=== PATIENT | female | born 1950 | race Hispanic/Latino ===

== ENCOUNTER 2021-07-24 07:09 | Inpatient (IN) | payer OTHER, MEDICARE ==
--- NOTE | 2021-07-23 15:25 | RAD REPORT ---
EXAM DESCRIPTION: RAD - Chest Pa And Lat (2 Views) - 07/23/2021 3:11 pm CLINICAL HISTORY: pre op Chest pain. COMPARISON: No comparisons FINDINGS: The lungs are clear. The heart is normal in size. No displaced fractures. IMPRESSION: No acute or concerning finding suspected.
[2021-07-23 16:01] LABS: Absolute Lymphocytes (CBC) 1.9 K/uL (0.7-4.9); Hematocrit 30.2 % (36.0-45.0); Lymphocytes % 14.9 % (15.3-44.8); MPV 8.6 fL (7.6-11.3); RBC Red Blood Cell Count 4.08 M/uL (3.86-4.86)
[2021-07-23 16:16] LABS: Potassium 3.8 mmol/L (3.5-5.1)
[2021-07-24] MEDS ORDERED: NA CHLORIDE 0.9% 1,000 ML ONE (07:38)
[2021-07-24] MEDS ORDERED: CELECOXIB 100 MG CAPSULE ONE (08:54)
[2021-07-24] MEDS ORDERED: ACETAMINOPHEN 500 MG TAB ONE (08:54)
[2021-07-24] MEDS ORDERED: MIDAZOLAM HCL 2 MG/2 ML INJ ONE (09:26)
[2021-07-24] MEDS ORDERED: dexAMETHasone 10 MG/ML VIAL ONE ×2 (09:27→09:30)
[2021-07-24] MEDS ORDERED: BUPIVACAINE 0.25% PF 10 ML VIAL ONE (09:28)
[2021-07-24] MEDS ORDERED: LIDOCAINE 1% MPF 5 ML VIAL ONE ×2 (09:30→10:08)
[2021-07-24] MEDS: CEFAZOLIN SODIUM 1 GM/VIAL ONE ×2 (09:52→10:07)
[2021-07-24] MEDS ORDERED: ONDANSETRON 4 MG/2 ML VIAL ONE (10:08)
[2021-07-24] MEDS ORDERED: propofoL 200 MG/20 ML VIAL IV ONE (10:08)
[2021-07-24] MEDS ORDERED: KETOROLAC 30 MG/ML INJ ONE (10:08)
[2021-07-24] MEDS ORDERED: EPHEDRINE SULF 50 MG/ML VIAL ONE (10:41)
--- NOTE | 2021-07-24 11:28 | P.BOP ---
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
[2021-07-24] MEDS ORDERED: MORPHINE 2 MG/ML SYR IV PRN (11:31)
[2021-07-24] MEDS ORDERED: SODIUM CHLORIDE 0.9% 10ML INJ IV PRN (11:31)
--- OUTSIDE RECORDS SUMMARY | 2021-07-24 12:54 | XMS REPORT | Continuity of Care Document ---
:1950 Author Organization [facility] t Address [address] [place] [address] Care Team Providers Name Role Phone Jacinto Torres Attending Clinician Unavailable Jacinto Torres Admitting Clinician Unavailable Payers Payer Name Policy Type Policy Number Effective Date Expiration Date S ource Problems This patient has no known problems. Allergies, Adverse Reactions, Alerts Allergy Allergy Status Severity Reaction(s) Onset Inactive Treating Comm ents Source Name Type Date Date Clinician No Known DA Active U [facility] Allergie 06-15 00:00: [address] Medications This patient has no known medications. Procedures This patient has no known procedures. Encounters Start End Encounter Admission Attending Care Care Encounter Source Date/Time Date/Time Type Type Clinicians Facility Department ID 2021-06-15 2021-06-15 Outpatient MINGO Sharma SURG [id number] [id number] [facility] 04:48:00 04:48:00 [facility] [id number] [facility] 2021-06-15 2021-06-15 Outpatient MINGO SharmaWU [id number] [facility] 04:48:00 04:48:00 [facility] 25 [facility] Results Test Description Test Time Test Comments Results Result Comments Source LIPID PROFILE (CORONARY RISK) 2021-06-15 07:24:00 Test Item Value Reference Range Interpretation Comme nts TRIGLYCERIDES (test code = TRIG) 125 MG/DL 150-199 L TRIGLYCERIDES REFERENCE RANGE:Normal: < 150 mg/dLBorderline High: 150-199 mg/dLHigh: 200- 499 mg/dLVery High: >=500 mg/ dL CHOLESTEROL (test code = CHOL) 225 MG/DL <200 HDL CHOLESTEROL (test code = 55 MG/DL 40-59 N HDL) LIPOPROTEIN LDL (test code = 121 MG/DL 0-99 H LDL) OPTIMAL........ .<100 mg/dLNEAR OPTIMAL/ABOVE OPTIMAL........ .100-129 mg/dL BORDERLIN E HIGH.........13 0-159 mg/dL HIGH.........16 0-189 mg/dL VERY H IGH.........>/= 190 mg/dL [id number] 07:24:00 Test Item Value Reference Range Interpretation Comments MAGNESIUM (test code = MAG) 2.6 MG/DL 1.6-2.3 H BASIC METABOLIC [id number] 07:24:00 Test Item Value Reference Range Interpretation Comments SODIUM (test code = 139 MMOL/L 137-145 N NA) POTASSIUM (test code = 4.8 MMOL/L 3.5-5.1 N K) CHLORIDE (test code = 107 MMOL/L 98-107 N CL) CARBON DIOXIDE (test 19 MMOL/L 22-30 L code = CO2) GLUCOSE (test code = 145 MG/DL 74-106 H GLU) BLOOD UREA NITROGEN 38 MG/DL 7-17 H (test code = BUN) GLOMERULAR FILTRATION > 60 Report ing units: RATE (test code = GFR) ml/mi n/1.73 m2 (Modified MDRD Formula)Referen ce Range: > or = 6 0 ml/min/1.73 m2 CREATININE (test code 0.80 MG/DL 0.52-1.04 N = CREAT) CALCIUM (test code = 9.4 MG/DL 8.4-10.2 N CA) PROTHROMBIN [id number] 07:08:00 Test Item Value Reference Range Interpretation Comments PROTHROMBIN TIME 13.0 SECONDS 9.4-12.7 H PATIENT (test code = PTP) INTERNATIONAL NORMAL 1.2 0.86-1.14 H The INR is to be RATIO (test code = used only for INR) monitoring oral anticoagulantth erap y. INDICATION I NR VALUE ---- ---- ---- -------1. Prophylaxis, de ep venous thrombos is, including hig h risk surgery. 2.0 - 3.0 2. Prophylaxis, de ep venous thrombos is, hip surgery, treatment for d eep venous thrombosis or pulmonary prevention of systemic emboli sm in patients wit h valvular heart disease, atrial fibrillation, tissue heart va lve, or acute myocar dial infarction. 2.0 - 3 .0 3. Mechanical prosthesis hear t valves, recurrent syste remington embolism. 3.0 - 4.5 PTT [id number] 07:08:00 Test Item Value Reference Range Interpretation Comments PTT ACTIVATED (test code = APTT) 33.5 SECONDS 26.2-35.4 N CBC W/AUTO [id number] 06:58:00 Test Item Value Reference Range Interpretation Comments WHITE BLOOD CELL (test code = 12.4 K/MM3 3.8-9.8 H WBC) RED BLOOD CELL (test code = 4.33 M/MM3 3.58-4.97 N RBC) HEMOGLOBIN (test code = HGB) 10.9 G/DL 11.2-14.9 L HEMATOCRIT (test code = HCT) 36.8 % 33.2-43.5 N MEAN CELL VOLUME (test code = 85 fL 80.7-99.1 N MCV) MEAN CELL HGB (test code = MCH) 25.2 pg 27.0-34.1 L MEAN CELL HGB CONCETRATION 29.6 % 32.2-35.7 L (test code = MCHC) RED CELL DISTRIBUTION WIDTH 12.4 % 12.1-15.2 N (test code = RDW) PLATELET COUNT (test code = 485 K/MM3 129-368 H PLT) MEAN PLATELET VOLUME (test code 10.2 fl 7.4-10.4 N = MPV) NEUTROPHIL % (test code = NT%) 69.6 % 43-75 N IMMATURE GRANULOCYTE % (test 0.6 % 0.0-2.0 N code = IG%) LYMPHOCYTE % (test code = LY%) 21.0 % 14-44 N MONOCYTE % (test code = MO%) 6.8 % 4-13 N EOSINOPHIL % (test code = EO%) 1.4 % 0-6 N BASOPHIL % (test code = BA%) 0.6 % 0-2 N NUCLEATED RBC % (test code = 0.0 % 0-1.0 N NRBC%) NEUTROPHIL # (test code = NT#) 8.62 K/mm3 2.0-7.6 H IMMATURE GRANULOCYTE # (test 0.08 x10 3/uL 0-0.03 H code = IG#) LYMPHOCYTE # (test code = LY#) 2.61 K/mm3 1.0-3.8 N MONOCYTE # (test code = MO#) 0.84 K/mm3 0.1-0.8 H EOSINOPHIL # (test code = EO#) 0.17 K/mm3 0.0-0.2 N BASOPHIL # (test code = BA#) 0.08 K/mm3 0.0-0.2 N NUCLEATED RBC # (test code = 0.00 K/mm3 0.0-0.1 N NRBC#) COVID 19 Asymptomatic IH [id number] 05:12:00 Test Item Value Reference Range Interpretation Comments COVID 19 NEGATIVE Negative "Negative resul ts from Asymptomatic IH AG patients with symptom (test code = onset beyondfiv e days, COVNONPUIAG) should be devorah facundo as presumptive, andconfirmation with a molecular assay , if necessary forpa tient management may be performed. Nega tive results do notr ule out COVID-19 and sh ould not be used as the sole basisfor treatm ent or patient managem ent decisions, includinginfect ion control decisio ns. Negative result s should beconsidered in the context of a pa tients recent exposure s,history, and the presenc e of clinical signs and symptomsconsist ent with COVID-19.This t est detects both vi able andnon-viable S ARS-CoV and SARS CoV-2. Test performance dep endson the amount of virus (antigen) in the sample."
[2021-07-24] MEDS: NA CHLORIDE 0.9% 1,000 ML IV SCH (14:45)
[2021-07-24 15:02] VITALS: BMI 15.4
[2021-07-24] MEDS ORDERED: GLUCAGON 1 MG/VIAL IM PRN (17:10)
[2021-07-24] MEDS ORDERED: D10W 250 ML BAG IV PRN (17:30)
[2021-07-24] MEDS: INSULIN -REGULAR HUMAN 50 UNIT/0.5 ML ML SQ SCH ×2 (18:01→21:25)
[2021-07-24] MEDS: HYDROCODONE/APAP 5/325 MG TAB PO PRN ×2 (18:04→23:16)
[2021-07-24] MEDS ORDERED: HYDRALAZINE HCL 20 MG/ML VIAL IV PRN (22:04)
--- NOTE | 2021-07-25 02:06 | OP ---
Date of Procedure: 07/24/2021 Surgeon: Mumtaz Bonilla MD Dredgemaster: Kenya Maurice. Preoperative Diagnosis: Right foot gangrene. Postoperative Diagnosis: Right foot gangrene. Procedure: Right below-knee amputation. Estimated Blood Loss: Less than 50 cc. Specimen: Right foot. Anesthesia: Spinal. Complications: None. Drains: KATHY #10. Indications: This is the case of a 70-year-old patient with right foot gangrene. The patient and th e family discussing advance options of amputation and a selective right below-knee amputation. The b enefits, alternatives, and risks of that procedure were fully explained, which include, but not limit ed to, infection, bleeding, damage to adjacent structures, anesthesia complication, failure of flap, need for further amputation, TN, and even . She also understands this may not relieve any sympt oms. She might need more than one surgical intervention. She understood, signed a consent. Description Of Procedure: The patient was brought to the operating room and placed in supine positio n. Anesthesia was done without complication. A time-out was called. Right foot was prepped and divya ped in a sterile fashion. At that moment, I proceeded then to outline the anterior and posterior ski n incisions. The anterior incision was made about 12 cm below the tibial tuberosity and extended med ially and lateral towards the edges of the gastrocnemius muscle. This skin incision was extended dis tally for about 12 cm to create the posterior flap. The skin and subcutaneous tissue were previously incised with a sharp knife. Saphenous veins were ligated. The fascia and the muscle were then divi ded with electrocautery with the Bovie cauterizer at the same level of the anterior skin incision. T he muscles in the anterior and lateral compartments were carefully exposed and tibial vessels were ca refully isolated and ligated. The tibial periosteum was incised circumferentially with the Bovie cau terizer. The tibial periosteum was carefully stripped about 2 cm. The tibia was transected with a G igli saw approximately 2 cm proximal to the skin with an anterior bevel. The fibula was then exposed and dissected circumferentially and transected with a bone cutter about 2 cm proximal to the tibial division. The amputation was then completed with the help of Bovie cauterizer transecting the soleus muscle obliquely and the gastrocnemius muscle. Sharp bony edges were file. The fascia of the anter ior and posterior muscle flaps were carefully approximated with interrupted #1 Vicryl and then the beckett bcutaneous tissue with 3-0 chromic and the skin with janis. Before that, we put a KATHY drain to be i n the middle of the muscle compartments and secured in place with 3-0 nylon. The patient tolerated t he procedure well. The area was wrapped with sterile dressings and the patient sent to Recovery in s table condition. I have to point out that incision was to do a nerve block previously, wh ich I believe will help a lot with the postoperative pain. The patient will be admitted to the floor for observation. We already dropped a rehab consult to help us evaluate the patient to see the post op care. She may need either at home rehab or transfer to a rehab center. We also asked for the monse mock, Dr. Silva, to help us with the medical management of this patient. JESSE/THELMA Voice ID: [id number] Report ID: [id number]
[2021-07-25] MEDS: NA CHLORIDE 0.9% 1,000 ML IV SCH ×3 (04:40→21:20)
[2021-07-25 05:43] LABS: Absolute Lymphocytes (CBC) 1.1 K/uL (0.7-4.9); Hematocrit 24.3 % (36.0-45.0); MPV 8.2 fL (7.6-11.3); RBC Red Blood Cell Count 3.33 M/uL (3.86-4.86)
[2021-07-25 05:59] LABS: Magnesium 1.9 mg/dL (1.8-2.4)
[2021-07-25] MEDS: INSULIN -REGULAR HUMAN 50 UNIT/0.5 ML ML SQ SCH ×4 (08:39→21:22)
[2021-07-25] MEDS: ATORVASTATIN 20 MG TAB PO SCH (08:39)
[2021-07-25] MEDS: lisinopriL 5 MG TAB PO SCH (08:39)
[2021-07-25] MEDS: ASPIRIN 81 MG CHEWABLE TABLET PO SCH (08:39)
[2021-07-25] MEDS: ENOXAPARIN 40 MG/0.4 ML SQ SCH (08:39)
[2021-07-25] MEDS ORDERED: PANTOPRAZOLE 40 MG INJ IVP SCH (09:00)
--- NOTE | 2021-07-25 16:35 | P.CNS ---
Date of Consult: 07/24/21 Reason for Consult: Medical management Requesting Physician: Mumtaz Bonilla Chief Complaint: s/p right BKA History of Present Illness: Patient is a 80s and diabetic neuropathy presented with diabetic foot ulcer about a month ago. She required amputation of her little toe but the infection spread patient is up requiring a below-knee amputation. Allergies No Known Allergies Allergy (Verified 07/23/21 14:46) Home Medications: Insulin Detemir [Levemir] 12 units SQ BID 02/07/15 Aspirin [Dionisio Chewable] 81 mg PO DAILY 07/23/21 Atorvastatin Calcium [Lipitor] 20 mg PO DAILY 07/23/21 Bimatoprost [Lumigan Opthalmic Drops] 1 drop LEFT EYE BEDTIME 07/23/21 Lisinopril [Zestril] 5 mg PO DAILY 07/23/21 Rivaroxaban [Xarelto] 2.5 mg PO BID 07/23/21 - Past Medical/Surgical History Diabetic: No -: HTN -: DM -: Right Corena Transplant Review of Systems 10-point ROS is otherwise unremarkable Physical Examination Temp Pulse Resp BP Pulse Ox 96.6 F L 84 12 111/61 100 07/25/21 16:00 07/25/21 16:00 07/25/21 16:00 07/25/21 16:00 07/25/21 16:00 General: Alert, In no apparent distress HEENT: Atraumatic, PERRLA, Mucous membr. moist/pink, EOMI, Sclerae nonicteric Neck: Supple, 2+ carotid pulse no bruit, No LAD, Without JVD or thyroid abnormality Respiratory: Clear to auscultation bilaterally, Normal air movement Cardiovascular: Regular rate/rhythm, Normal S1 S2 Gastrointestinal: Normal bowel sounds, No tenderness Musculoskeletal: No tenderness Integumentary: No rashes Neurological: Normal gait, Normal speech, Normal tone, Normal affect Lymphatics: No axilla or inguinal lymphadenopathy Laboratory Data (last 24 hrs) 07/25/21 05:05: Sodium 139, Potassium 5.0, BUN 26 H, Creatinine 0.77, Glucose 241 H, Phosphorus 3.0, Magnesium 1.9 07/25/21 05:05: WBC 15.7 H D, Hgb 8.0 L, Hct 24.3 L D, Plt Count 401 - Problems (1) History of right below knee amputation Current Visit: Yes Status: Acute (2) DM2 (diabetes mellitus, type 2) Current Visit: Yes Status: Acute Conclusions/ Impression: PLAN: 1. Continue with IV antibiotic 2. Continue with local wound care 3. Wound care consultation/surgical consultation 4. Gentle IV hydration 5. Monitor CBC 6. Strict blood sugar monitoring 7. Pain control 8. GI and DVT prophylaxis
[2021-07-25] MEDS: HYDROCODONE/APAP 5/325 MG TAB PO PRN ×2 (17:43→21:58)
[2021-07-25] MEDS ORDERED: BIMATOPROST OPHTH DROPS/2.5 ML BTL OPTH SCH (21:00)
[2021-07-26] MEDS: NA CHLORIDE 0.9% 1,000 ML IV SCH ×2 (00:35→14:03)
[2021-07-26] MEDS: PANTOPRAZOLE 40MG TABLET PO SCH (05:50)
[2021-07-26] MEDS: INSULIN -REGULAR HUMAN 50 UNIT/0.5 ML ML SQ SCH ×4 (08:23→20:56)
[2021-07-26] MEDS: lisinopriL 5 MG TAB PO SCH (08:24)
[2021-07-26] MEDS: ENOXAPARIN 40 MG/0.4 ML SQ SCH (08:24)
[2021-07-26] MEDS: ATORVASTATIN 20 MG TAB PO SCH (08:24)
[2021-07-26] MEDS: ASPIRIN 81 MG CHEWABLE TABLET PO SCH (08:24)
--- NOTE | 2021-07-26 08:43 | P.PN ---
Subjective Date of Service: 07/25/21 Chief Complaint: s/p right BKA Subjective: Tolerating diet, Improving Review of Systems General: Unremarkable Respiratory: Unremarkable Gastrointestinal: Unremarkable Physical Examination - Vital Signs Temperature: 97.5 F Blood Pressure: 130/66 Pulse: 81 Respirations: 12 Pulse Ox (%): 99 - Physical Exam General: Alert, In no apparent distress, Oriented x3, Cooperative HEENT: PERRLA, EOMI Neck: Supple Gastrointestinal: Soft and benign Musculoskeletal: Other (Intact surgical sites) Integumentary: Other Neurological: Normal speech Assessment And Plan - Plan OOB, IS [facility] Discharge Plan: Transfer (Rehab)
[2021-07-26] MEDS: HYDROCODONE/APAP 5/325 MG TAB PO PRN ×2 (09:24→19:42)
--- NOTE | 2021-07-26 18:42 | PN ---
Date of Progress Note: 07/26/2021 Diagnosis: Gangrene, status post below-knee amputation. Subjective: Patient doing well. No complaint. Tolerating diet. She is cooperating with the rehab department. Objective: Chest: Clear. Abdomen: Soft and depressible. Extremities: Intact surgical sites. Laboratory Data: Blood work reviewed. Plan: Encouraged ambulation, incentive spirometry. She has been making a lot of progress with rehab and to the point that she will be most likely accepted on the rehab either Thursday or Thursday if clinically she continues in this way. We appreciate the medical doctors to helping us with the bloo d pressure and diabetes. HM/MODL Voice ID: [id number] Report ID: [id number]
[2021-07-26] MEDS: LUMIGAN OPTH SCH (19:43)
[2021-07-27] MEDS: NA CHLORIDE 0.9% 1,000 ML IV SCH (05:39)
[2021-07-27] MEDS: PANTOPRAZOLE 40MG TABLET PO SCH (05:40)
[2021-07-27] MEDS: INSULIN -REGULAR HUMAN 50 UNIT/0.5 ML ML SQ SCH ×4 (07:30→20:32)
[2021-07-27] MEDS: ASPIRIN 81 MG CHEWABLE TABLET PO SCH (08:48)
[2021-07-27] MEDS: lisinopriL 5 MG TAB PO SCH (08:48)
[2021-07-27] MEDS: ATORVASTATIN 20 MG TAB PO SCH (08:48)
[2021-07-27] MEDS: ENOXAPARIN 40 MG/0.4 ML SQ SCH (08:49)
--- NOTE | 2021-07-27 14:09 | PN ---
Date of Progress Note: 07/27/2021 Diagnosis: Below-knee amputation. Subjective: The patient is doing better. No shortness of breath. No chest pain. Tolerating diet. Good spirits. Objective: Chest: Clear. Abdomen: Soft and depressible. Extremities: Good capillary refill. The stump was checked today. The flaps were intact. KATHY drain was removed. Plan: We are waiting for a rehab for the transfer. The patient is happy about that plan. We are aw aiting just for the insurance and paperwork to be finished. From the surgical standpoint, she is silke ar to be in that area. Once again advised the importance of diabetes control. HM/MODL Voice ID: [id number] Report ID: [id number]
[2021-07-27] MEDS ORDERED: ACETAMINOPHEN 325 MG TABLET PO PRN (17:38)
[2021-07-27] MEDS: LUMIGAN OPTH SCH (20:31)
[2021-07-28] MEDS: PANTOPRAZOLE 40MG TABLET PO SCH (05:54)
[2021-07-28] MEDS: INSULIN -REGULAR HUMAN 50 UNIT/0.5 ML ML SQ SCH ×3 (07:30→17:27)
[2021-07-28] MEDS: ASPIRIN 81 MG CHEWABLE TABLET PO SCH (08:36)
[2021-07-28] MEDS: lisinopriL 5 MG TAB PO SCH (08:36)
[2021-07-28] MEDS: ENOXAPARIN 40 MG/0.4 ML SQ SCH (08:36)
[2021-07-28] MEDS: ATORVASTATIN 20 MG TAB PO SCH (08:36)
[2021-07-28 16:54] VITALS: BP 135/60; TEMP 98.2
[2021-07-28 20:24] VITALS: O2SAT 99
== END 2021-07-28 20:16 | DRG 240 ==
LOC: OR 07:09 → 2ND 11:34
PROVIDERS: ADMIT Surgery; ATTEND Surgery
PROC: 0Y6H0Z3 Detachment at Right Lower Leg, Low, Open Approach (ICD-10-PCS; principal; 2021-07-24 09:45)
DX: E11.52 Type 2 diabetes mellitus with diabetic peripheral angiopathy with gangrene (principal); I96 Gangrene, not elsewhere classified; I10 Essential (primary) hypertension; Z79.4 Long term (current) use of insulin; Z94.7 Corneal transplant status; Z20.822 Contact with and (suspected) exposure to COVID-19
CPT/HCPCS: 36415; 71046; 80048; 82947; 83735; 84100; 85025; 88307; 88311; 94010; 97110; 97116; 97161; 97530; C9113; J0360; J0690; J1100; J1650; J1815; J2250; J2405; J2704; J7030; U0003

== ENCOUNTER 2021-07-26 14:08 | Inpatient (IN) | payer OTHER, MEDICARE ==
--- NOTE | 2021-07-28 09:37 | R.PREADM ---
PRE-ADMISSION SCREENING FORM SCREENING DATE AND TIME 07/28/2021 09:00 (CDT) ANTICIPATED REHAB ADMISSION DATE 07/28/[address] [facility] REFERRAL DATE AND TIME 07/25/2021 14:49 (CDT) REFERRAL ROOM# [id number] ACUTE ADMIT DATE 07/24/2021 Previous Rehabilitation(s): No. ACUTE INTERACTIVE DESIGNER/DC CAM MAKER Aleyda ATTENDING PHYSICIAN REFERRING PHYSICIAN MUMTAZ PHAM MD REHAB FACILITY [facility] CLINICAL LIAISON Sotero James PHYSICIAN REVIEWER Dr. Satnam Barton M.D. MR# [id number] NAME MUNA ROSSI ADDRESS [address] [place] [address] DR KEILA FELIX PHONE [place] [address] DATE OF 1950 AGE 70 SSN# [id number] GENDER female MARITAL STATUS RACE unknown race ADMIT FROM 02 - [facility] LIVING SETTING 01 - Home (private home/apt. board/care, assisted living, residential, transitional living) HOME TYPE AND DETAILS Type of home: single family house # of levels in the residence: 1 # of steps within the residence: 0 # of steps to enter the residence: 0 PRE-HOSPITAL LIVING WITH Family/Relatives FAMILY SUPPORT Yes PRIMARY FAMILY CONTACT NAME ANSHU ROSSI PRIMARY FAMILY CONTACT PHONE PRIMARY FAMILY CONTACT RELATIONSHIP Son PHONE PRIMARY FAMILY CONTACT ON ADM.? no IS PRIMARY FAMILY CONTACT AUTH. REP.? no 1ST EMERGENCY CONTACT ANSHU ROSSI 1ST CONTACT PHONE 1ST CONTACT RELATIONSHIP Son PHONE 1ST CONTACT ON ADM. no IS 1ST CONTACT AUTH. REP.? no PHONE 2ND CONTACT ON ADM.? no PATIENT EMPLOYMENT STATUS Retired (for age) PATIENT EMPLOYER No Employer PAYOR INFORMATION: 1ST PAYOR NAME Medicare 1ST PAYOR PHONE 1ST PAYOR INJURY/ILLNESS DUE TO ACCIDENT? No ANOTHER GREEN PARTY RESPONSIBLE? No PRIMARY REHAB/ACUTE DIAGNOSIS: Right Transtibial Amputation ONSET DATE 07/24/2021 REHAB IMPAIRMENT CATEGORY (ELLIOTT): 10 Amputation, lower extremity (Amp/LE) MEETS 60% rule AFFECTED EXTREMITIES: RLE PRIMARY DIAGNOSIS-RELATED SURGERIES: Elective Amputation of Limb(Unilateral Lower Limb Below the Knee (BK)) - performed by Mumtaz Pham on 07/24/2021 INTERVENTIONS: - Type 2 Diabetes Assess for signs of hyperglycemia. Weight daily. Assess LE for temperature, pulses, color, and sensation. Promote proper diet Monitor blood glucose and effectiveness of medications/Insulin Monitor pt BP - Hypertension Promote regular physical activity Implement healthy diet Monitor patient B/P and treat with prescribed medications Provide comfort measures - Hyperlipidemia Monitor LDL level and treat with prescribed medications Implement healthy diet Monitor and control blood pressure Promote regular physical activity - Pain Anticipate the need for pain medication for optimal pain managment Monitor and treat with prescribed pain medications Educate pt on relaxation techniques and deep breathing Monitor for headaches - BKA Encourage patient to perform prescribes exercises. Provide wound care on a routine basis Assist with specified ROM exercises for both the affected and unaffected limbs Assist with ambulation and transfers Maintain patency and routinely empty drainage device and monitor wound dressings Administer antibiotics as indicated Monitor pt v/s and for s/s of infection Perform periodic neurovascular assessments Monitor pt labs RISK FOR COMPLICATIONS: - Skin Breakdown Encourage ambulation as tolerated Repositioning q 2 hours Use of pillows or foam wedges while in bed - DVT Active and Passive ROM exercises Assist patient with frequent position changes Elevate BLE - Seizure Identify risk factors Provide safety measures Administer prescribed medications and supplemental O2 - Pain Educate patient on relaxation and deep breathing techniques Assist patient with frequent position changes at least every 2 hours Anticipate the need for pain medication for optimal pain managment Administer prescribed pain medication as needed - Stroke Monitor and maintain patient pain level Monitor patient blood pressure - Falls Maintain call light within patient reach for easy access to nursing assistance Provide assistance getting out of bed and with ambulation Provide assistive devices SUMMARY OF ACUTE HOSPITALIZATION: Pt. is a 70 yo female of unknown race. Pre-morbidly, Pt. was independent/mod-I in Locomotion, Safety Awareness, Social Cognition, and Balanc e; and she had good Transfers Control, Sphincter Control, Communication, Self-Care, and Endurance. Currently, she has deficits of Locomotion, Safety Awareness, Social Cognition, Transfers Control, Bal ance, Sphincter Control, Self-Care, Communication, and Endurance. Pt. is now referred to [facility] for acute in-patient rehabilitation in order to maximize patient's functional independence in activities of daily living, strength, ROM, and mobi lity. Patient has realistic goal of being discharged at assistance level 7-Ind to reside at Home with Fami ly/Relatives. 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 She elected for surgery, and on 07/24/[address] [facility] for Amputation of Limb(Unilateral Lower Limb Below the Knee (BK)) by MUMTAZ PHAM MD. CONSULT: Consult Certified Prosthetic for prosthesis construction PAST MEDICAL HISTORY HTN IDDM CHOLESTEROL RIGHT EYE BLIND MUSCLE WEAKNESS MEDICATION ALLERGIES: No Known Drug Allergies (NKDA) ENVIRONMENTAL ALLERGIES: - Substance Allergies None Known - Other Allergies None Known CODE STATUS: Full code WEIGHT/HEIGHT/BMI: WEIGHT 87 lbs HEIGHT 5' 3" BMI 15.4 DIET: - Diet Type Regular - Diet - Solid Texture Regular - Diet - Liquid Texture Regular - Tube Feed N/A SKIN DIAGRAM: on Right knee; extent - small; stage - NS(Not Stageable). Treatment - . REVIEW OF SYSTEMS: - Gen Alert and awake Lying in bed No apparent distress Oriented to: person, time, and place - Vital Signs Temperature: 97.6 F SBP/DBP: 105/54 Pulse: 87 Resp: 14 Vital signs stable, afebrile - CVS RRR VITAL SIGNS Temperature: 97.6 F SBP/DBP: 105/54 Pulse: 87 Resp: 14 Vital signs stable, afebrile MEDICATIONS/TREATMENT: Other- See attached MAR (Medication Administration Record). CURRENT SPHINCTER CONTROL: Pre-hospital bladder status: unspecified # of bladder accidents in the last 7 days prior to screenin Pre-hospital bowel status: unspecified # of bowel accidents in the last 7 days prior to screenin Last Bowel Movement Date: 07/27/2021 CURRENT LOCOMOTION STATUS: distance walked 30X 2 GATE TRAINING DETAILED CURRENT FUNCTIONAL STATUS: - Bladder accident frequency: 7-Ind - No accidents in the past 7 days - Bowel accident frequency: 7-Ind - No accidents in the past 7 days - Walking score based on distance walked: 0(N/A) - Wheelchair score based on distance traveled: 0(N/A) QI SCORES: - Self-Care A. Eating 03-Partial/moderate assistance B. Oral hygiene 03-Partial/moderate assistance C. Toileting hygiene 03-Partial/moderate assistance E. Shower/bathe self 02-Substantial/maximal assistance F. Upper body dressing 03-Partial/moderate assistance G. Lower body dressing 02-Substantial/maximal assistance H. Putting on/taking off footwear 88-Not attempted due to medical condition or safety concerns - Mobility A. Roll left and right 03-Partial/moderate assistance B. Sit to lying 03-Partial/moderate assistance C. Lying to sitting on side of bed 03-Partial/moderate assistance D. Sit to stand 03-Partial/moderate assistance E. Chair/kxc-ux-[id number] transfer 03-Partial/moderate assistance F. Toilet transfer 03-Partial/moderate assistance G. Car transfer 88-Not attempted due to medical condition or safety concerns I. Walk 10 feet 03-Partial/moderate assistance J. Walk 50 feet with two turns 88-Not attempted due to medical condition or safety concerns K. Walk 150 feet 88-Not attempted due to medical condition or safety concerns L. Walking 10 feet on uneven surfaces 88-Not attempted due to medical condition or safety concerns M. 1 step (curb) 88-Not attempted due to medical condition or safety concerns N. 4 steps 88-Not attempted due to medical condition or safety concerns O. 12 steps 88-Not attempted due to medical condition or safety concerns P. Picking up object 88-Not attempted due to medical condition or safety concerns R. Wheel 50 feet with two turns 88-Not attempted due to medical condition or safety concerns S. Wheel 150 feet 88-Not attempted due to medical condition or safety concerns - Bladder and Bowel Bladder continence Bowel continence - Endurance Fair - Balance Poor - Safety Awareness Fair CURRENT FUNC. DEFICITS: Self-Care, Mobility, Endurance, Balance, and Safety Awareness CURRENT / PREVIOUS ASSISTIVE DEVICES: Rolling Walker HISTORY OF FALLS. HAS THE PATIENT HAD TWO OR MORE FALLS IN THE PAST YEAR OR ANY FALL WITH INJURY IN T HE PAST YEAR?: No PRIOR SURGERY. DID THE PATIENT HAVE MAJOR SURGERY DURING THE 100 DAYS PRIOR TO ADMISSION?: No THERAPY NOTES FROM ACUTE CARE: Attached. SPECIAL NEEDS: - Safety Concerns Skin breakdown precautions needed due to skin breakdown risk PATIENT NEEDS ACTIVE AND ONGOING THERAPEUTIC INTERVENTION OF MULTIPLE THERAPY DISCIPLINES, INCLUDING: - Orthotics/Prosthetics Prosthetic Evaluation. - Dietary and Nutrition Adequate Nutrition. Nutritional Education. Nutritional Supplements. Evaluate and Treat. - Occupational Therapy Cognitive Retraining. Patient needs Occupational Therapy for a daily minimum of 1.5 hours at least 5 out of 7 days, to improve Activities of Daily Living, including: Eating, Grooming, Bathing, Dressing, Toileting, Toilet Transfers, Community Reintegration, Higher functional activities, Adaptive Equipme nt, Splinting, Household Tasks, and Other activities as determined. Visual Perceptual Training. Evalu ate and Treat. Adaptive Equipment. ADL Training. Patient/Family Education. Transfer Training. - Speech Therapy Cognitive Training. Expressive Language Skills. Memory Strategies. Patient needs Speech Therapy for a daily minimum of 1.5 hours at least 5 out of 7 days, to improve: Swallowing, Cognition, Language Ski lls, and Compensatory Strategies. Receptive Language Skills. Speech Intelligibility Training. Evaluat e and Treat. - Physical Therapy Patient needs Physical Therapy for a daily minimum of 1.5 hours at least 5 out of 7 days, to improve: Mobility, Strengthening, Transfers, Stretching, ROM, Endurance, Ability to manage stairs, Gait, and Balance. Balance Training. Evaluate and Treat. Gait Training. LE ROM. Medical Equipment Assessment an d Evaluation. Patient/Family Education. Safety Awareness. Transfer Training. PATIENT NEEDS CLOSE MEDICAL SUPERVISION BY A REHABILITATION PHYSICIAN FOR: Coordination of Treatment Team Post-Op Complications Wound Care PATIENT REQUIRES 24X7 REHAB NURSING FOR MEDICAL AND FUNCTIONAL MGT. OF THE FOLLOWING DEFICITS: Disease Management Medication Management Patient requires 24x7 Rehabilitation Nursing for: Pain Issues, Identifying and preventing risk factor s, Monitoring and reporting current medical conditions, Assisting with ambulation and transfer, Tyshawn ting with all ADL-s, Teaching patients about disease process and medications, Family teaching, Provid ing safe environment, Bowel and Bladder Issues, Skin Integrity, and Medication Management Patient/Family Education Providing Safe Environment Skin Integrity PATIENT REQUIRES INTENSIVE, COORDINATED INTERDISCIPLINARY APPROACH TO REHAB: Arranging Home Equipment/Services Discharge Planning Family Intervention/Training Patient needs Dietary and Nutrition Services for: Adequate Nutrition, Nutritional Supplements, and Nu tritional Education Patient needs Mold Technician and/or Case Management for: Discharge Planning, Arranging Home Equipmen t or Services, and Family Interventions Mold Technician/Case Management PATIENT REHAB POTENTIAL: Lon ROSSI is able and expected to receive 3 hours of individualized therapy daily on at least 5 of e very 7 days Lon CRUZs prognosis for significant practical improvement within a reasonable period of time appea rs Good Expected level of measurable improvement will be of a practical value to Lon ROSSI's functional capa city or adaptations to impairments Has a viable Discharge Plan Medically appropriate; condition is sufficiently stable to participate in intensive rehab program DISCHARGE PLAN: - Estimated Length of Stay (days) 11. - Consensus on plan Discharge plan has been discussed with primary caregiver. Patient/Family is in agreement with the yadiel n. Primary caregiver is in agreement with the plan. - Patient/Family Goals Return home independently. - Planned Living Setting Upon Discharge Home, to live with Family/Relatives. Transitional Living. RECOMMENDED CARE LEVEL: IRF RECOMMENDATION DETAILS: Recommended Admission to Comprehensive Rehabilitation Program to Increase Functional [place] SCREENER'S COMPLETENESS CONFIRMATION: - Screening Confirmation The patient data collection on this preadmission screening form is finished PHYSICIANS REVIEW AND ADMISSION DETERMINATION Admit - Based on my review of the Pre-Admission Screening results, in my medical judgment and experie nce, I concur with the findings and recommend admission to [facility], as this patient requires an IRF level of care. SIGNATURE PANEL: Shredder Tender Peat - [electronically] signed by Sotero James on 07/26/2021 at 13:59 (CDT) Shredder Tender Peat - [electronically] signed by Saad Castillo PT on 07/28/2021 at 09:09 (CDT) Physician Reviewer - [electronically] signed by Dr. Satnam Barton M.D. on 07/28/2021 at 09:36 (CDT )
--- OUTSIDE RECORDS SUMMARY | 2021-07-28 20:15 | XMS REPORT | Continuity of Care Document ---
:1950 Author Organization [facility] t Address [address] [place] [address] Care Team Providers Name Role Phone Jacinto Torres Attending Clinician Unavailable Jacinto Torres Admitting Clinician Unavailable Payers Payer Name Policy Type Policy Number Effective Date Expiration Date S ource Problems This patient has no known problems. Allergies, Adverse Reactions, Alerts Allergy Allergy Status Severity Reaction(s) Onset Inactive Treating Comm ents Source Name Type Date Date Clinician No Known DA Active [facility] Allergie 06-15 00:00: [address] Medications This patient has no known medications. Procedures This patient has no known procedures. Encounters Start End Encounter Admission Attending Care Care Encounter Source Date/Time Date/Time Type Type Clinicians Facility Department ID 2021-06-15 2021-06-15 Outpatient MINGO Sharma SURG [id number] 10-12 [facility] 04:48:00 04:48:00 [facility] [id number] [facility] 2021-06-15 2021-06-15 Outpatient MINGO SharmaWU [id number] [facility] 04:48:00 04:48:00 [facility] 25 [facility] Results Test Description Test Time Test Comments [...] 0-189 mg/dL VERY H IGH.........>/= 190 mg/dL [id number] 07:24:00 Test Item Value Reference Range Interpretation Comments MAGNESIUM (test code = MAG) 2.6 MG/DL 1.6-2.3 H BASIC METABOLIC [id number] 07:24:00 Test Item Value Reference Range Interpretation [...] = 9.4 MG/DL 8.4-10.2 N CA) PROTHROMBIN [id number] 07:08:00 Test Item Value Reference Range Interpretation [...] syste remington embolism. 3.0 - 4.5 PTT [id number] 07:08:00 Test Item Value Reference Range Interpretation Comments PTT ACTIVATED (test code = APTT) 33.5 SECONDS 26.2-35.4 N CBC W/AUTO [id number] 06:58:00 Test Item Value Reference Range Interpretation [...] 0.0-0.1 N NRBC#) COVID 19 Asymptomatic IH [id number] 05:12:00 Test Item Value Reference Range Interpretation [...]
[2021-07-28 20:26] VITALS: BMI 15.4
[2021-07-28] MEDS ORDERED: GLUCAGON 1 MG/VIAL IM PRN (20:32)
[2021-07-28] MEDS ORDERED: D50W 25 GM/50 ML SYRINGE IV PRN (20:32)
[2021-07-28] MEDS ORDERED: HYDROCODONE/APAP 5/325 MG TAB PO PRN (20:36)
[2021-07-28] MEDS ORDERED: ACETAMINOPHEN 325 MG TABLET PO PRN (20:36)
[2021-07-28] MEDS ORDERED: D10W 125 ML IV PRN (20:48)
[2021-07-28] MEDS ORDERED: BIMATOPROST EYE OPTH SCH (21:00)
[2021-07-28] MEDS ORDERED: BIMATOPROST OPHTH DROPS/2.5 ML BTL OPTH SCH (21:00)
[2021-07-28] MEDS: INSULIN -REGULAR HUMAN 50 UNIT/0.5 ML ML SQ SCH (21:38)
[2021-07-29 00:33] LABS: Urine Appearance Clear (Clear); Urine Bilirubin Negative (Negative); Urine Blood Negative (Negative); Urine Color Yellow (Yellow); Urine Glucose 2+ (Negative); Urine Protein Trace (Negative); Urine Urobilinogen 0.2 mg/dL (0.2-1.0); Urine pH 5.5 (5.0-7.0)
[2021-07-29 00:35] LABS: Urine Microscopic Reflex ORDER UMIC
[2021-07-29 00:43] LABS: Urine Bacteria NONE SEEN /HPF (<20); Urine RBC <5 /HPF (NONE SEEN)
[2021-07-29 04:22] LABS: Absolute Lymphocytes (CBC) 2.2 K/uL (0.7-4.9); Hematocrit 22.8 % (36.0-45.0); Lymphocytes % 24.7 % (15.3-44.8); MCV 72.9 fL (80-100); MPV 8.2 fL (7.6-11.3); RBC Red Blood Cell Count 3.13 M/uL (3.86-4.86)
[2021-07-29 04:42] LABS: Magnesium 1.6 mg/dL (1.8-2.4); Potassium 3.9 mmol/L (3.5-5.1); Prealbumin 11.5 mg/dL (20-40)
[2021-07-29 05:35] LABS: Blood Morphology Comment NOTED (NOT SEEN); Platelet Estimate INCR
[2021-07-29] MEDS: PANTOPRAZOLE 40MG TABLET PO SCH (07:30)
[2021-07-29] MEDS: ENOXAPARIN 30 MG/0.3 ML SQ SCH (07:30)
[2021-07-29] MEDS: INSULIN -REGULAR HUMAN 50 UNIT/0.5 ML ML SQ SCH ×4 (07:30→19:45)
[2021-07-29] MEDS: ASPIRIN 81 MG CHEWABLE TABLET PO SCH (07:31)
[2021-07-29] MEDS: lisinopriL 5 MG TAB PO SCH (07:32)
[2021-07-29] MEDS ORDERED: ATORVASTATIN 20 MG TAB PO SCH (08:00)
[2021-07-29] MEDS ORDERED: MAGNESIUM OXIDE 400 MG TAB PO ONE (10:21)
[2021-07-29] MEDS ORDERED: MELATONIN 3 MG TABLET PO PRN (10:36)
[2021-07-29] MEDS ORDERED: DOCUSATE NA/SENNA CONC 1 TAB PO PRN (10:37)
--- NOTE | 2021-07-29 17:57 | R.HP ---
HISTORY AND PHYSICAL FACILITY: [facility] ENCOUNTER DATE AND TIME: 07/29/2021 10:42 (CDT) MR#: [id number] NAME MUNA ROSSI ADDRESS: [facility] [place]: [place] [address] PHONE: DATE OF : 1950 AGE: 70 SSN# [id number] GENDER: Female DEXTERITY Unknown dexterity MARITAL STATUS RACE Unknown race PRE-HOSPITAL LIVING SETTING 01 - Home (private home/apt. board/care, assisted living, fdc, transitional living) PRE-HOSPITAL LIVING WITH Family/Relatives ENCOUNTER PHYSICIAN: Dr. Satnam Barton M.D. 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 is a 70 yo female of unknown race. Pre-morbidly, Pt. was independent/mod-I in Locomotion, Safety Awareness, Social Cognition, and Balanc e; and she had good Transfers Control, Sphincter Control, Communication, Self-Care, and Endurance. Currently, she has deficits of Locomotion, Safety Awareness, Social Cognition, Transfers Control, Bal ance, Sphincter Control, Self-Care, Communication, and Endurance. Pt. is now referred to [facility] for acute in-patient rehabilitation in order to maximize patient's functional independence in activities of daily living, strength, ROM, and mobi lity. Patient has realistic goal of being discharged at assistance level 7-Ind to reside at Home with Fami ly/Relatives. 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 She elected for surgery, and on 07/24/2021 was admitted to [facility] for Amputation of Limb(Unilateral Lower Limb Below the Knee (BK)) by MUMTAZ PHAM MD. MEDICATION ALLERGIES: No Known Drug Allergies (NKDA) ENVIRONMENTAL ALLERGIES: - Substance Allergies None Known - Other Allergies None Known PAST MEDICAL HISTORY: HTN IDDM CHOLESTEROL RIGHT EYE BLIND MUSCLE WEAKNESS SOCIAL HISTORY: - Home Living Family/Relatives REVIEW OF SYSTEMS: - Gen No Chills Fatigue No Fever - Eyes No Double Vision No itchiness - ENMT No Difficulty Swallowing - CVS No Chest Discomfort No Chest Pain Fatigue No Weight Gain - Resp No Cough No Shortness of Breath - GI Continent No Abdominal Pain No Constipation No Diarrhea - Continent No Kidney Pain No Painful Urination No Urinary Urgency - MSK Joint Pain Muscle Cramps Stiffness - Skin No Itching No Rash No Suspicious Lesions - Neuro Coordination Difficulty No Difficulty with Concentration No Memory Loss No Seizures Weakness - Psych No Anxiety No Depression No HIV Exposure No Persistent Infections No Seasonal Allergies - Endo No Cold/Heat Intolerance No Excessive Hunger No Excessive Thirst No Excessive Urination PHYSICAL EXAM - Gen Alert and awake Lying in bed No apparent distress Oriented to: person, time, and place - Skin Right BKA bandage in place with good hemostasis. Normacephalic - Eyes No abnormalities - ENMT No abnormalities - Neck No abnormalities - CVS RRR - Chest No abnormalities - Abd Soft - GI + bowel sounds Deferred - No abnormalities - Ext Right BKA stump with good hemostasis. - MSK No focal deficits, mild diffuse weakness - Neuro No focal deficits - Psych No abnormalities VITAL SIGNS Temperature: 97.8 F SBP/DBP: 147/83 Pulse: 80 Resp: 15 NURSING: - Shower allowing shower - Skin care per protocol PRECAUTIONS: - Weight Bearing Precaution NWB right LE ACTIVITIES OOB only with supervision QI SCORES: - Self-Care A. Eating 03-Partial/moderate assistance B. Oral hygiene 03-Partial/moderate assistance C. Toileting hygiene 03-Partial/moderate assistance E. Shower/bathe self 02-Substantial/maximal assistance F. Upper body dressing 03-Partial/moderate assistance G. Lower body dressing 02-Substantial/maximal assistance H. Putting on/taking off footwear 88-Not attempted due to medical condition or safety concerns - Mobility A. Roll left and right 03-Partial/moderate assistance B. Sit to lying 03-Partial/moderate assistance C. Lying to sitting on side of bed 03-Partial/moderate assistance D. Sit to stand 03-Partial/moderate assistance E. Chair/nmz-ef-sjtfi transfer 03-Partial/moderate assistance F. Toilet transfer 03-Partial/moderate assistance G. Car transfer 88-Not attempted due to medical condition or safety concerns I. Walk 10 feet 03-Partial/moderate assistance J. Walk 50 feet with two turns 88-Not attempted due to medical condition or safety concerns K. Walk 150 feet 88-Not attempted due to medical condition or safety concerns L. Walking 10 feet on uneven surfaces 88-Not attempted due to medical condition or safety concerns M. 1 step (curb) 88-Not attempted due to medical condition or safety concerns N. 4 steps 88-Not attempted due to medical condition or safety concerns O. 12 steps 88-Not attempted due to medical condition or safety concerns P. Picking up object 88-Not attempted due to medical condition or safety concerns R. Wheel 50 feet with two turns 88-Not attempted due to medical condition or safety concerns S. Wheel 150 feet 88-Not attempted due to medical condition or safety concerns - Bladder and Bowel Bladder continence Bowel continence - Endurance Fair - Balance Poor - Safety Awareness Fair CURRENT FUNC. DEFICITS: Self-Care, Mobility, Endurance, Balance, and Safety Awareness MEDICATIONS: - Other See attached MAR (Medication Administration Record) ASSESSMENT: Pt. is a 70 yo female of unknown race.Pre-morbidly, Pt. was independent/mod-I in Locomotion, Safety A wareness, Social Cognition, and Balance; and she had good Transfers Control, Sphincter Control, Commu nication, Self-Care, and Endurance.Currently, she has deficits of Locomotion, Safety Awareness, Socia l Cognition, Transfers Control, Balance, Sphincter Control, Self-Care, Communication, and Endurance.Judy bloom. is now referred to [facility] for acute in-patient rehabilitation in order to maximize patient's functional independence in activities of daily living, strength, ROM, and mobil ity.- Rehab Goal Patient has realistic goal of being discharged at assistance level 7-Ind to reside at Home with Fami ly/Relatives. - Physical Therapy Gait dysfunction - to improve, our physical therapists will perform initial evaluation of pt's status upon admission and devise an individualized program for Gait Training, and Wheel Chair mobility Inability to transfer - to improve, our physical therapists will perform initial evaluation of pt's s tatus upon admission and devise an individualized program for Bed mobility Need for home safety evaluation - to improve, our physical therapists will perform initial evaluation of pt's status upon admission and devise an individualized program for Home Evaluation Need in caregiver upon discharge - to improve, our physical therapists will perform initial evaluatio n of pt's status upon admission and devise an individualized program for Caregiver Training New precaution - to improve, our physical therapists will perform initial evaluation of pt's status u ashley admission and devise an individualized program for Patient precaution education Poor balance - to improve, our physical therapists will perform initial evaluation of pt's status upo n admission and devise an individualized program for Balance Training Poor endurance - to improve, our physical therapists will perform initial evaluation of pt's status u ashley admission and devise an individualized program for Endurance Training Weakness - to improve, our physical therapists will perform initial evaluation of pt's status upon ad mission and devise an individualized program for Aquatic Therapy, Neuromuscular Reeducation, and Stre ngthening Achieving independence - to improve, our physical therapists will perform initial evaluation of pt's status upon admission and devise an individualized program for Community Reintegration Activities - Occupational Therapy ADL deficits - to improve, our occupation therapists will perform initial evaluation of pt's status u ashley admission and devise an individualized program for Bathing, Bed mobility, Community Reintegration , Cooking, Dressing, Eating, Fine Motor Skills, Grooming, Homemaking, Kitchen Mobility, Laundry, Birdie ent Education, Safety Awareness, Splinting - Positioning, Transfers(Toilet, Tub, Shower), and Wheel C hair Management Cognitive deficits - to improve, our occupation therapists will perform initial evaluation of pt's st atus upon admission and devise an individualized program for Cognition - orientation Need for respiratory care faculty - to improve, our occupation therapists will perform initial evaluation of pt's s tatus upon admission and devise an individualized program for Caregiver Training Weakness - to improve, our occupation therapists will perform initial evaluation of pt's status upon admission and devise an individualized program for Aquatic Therapy, Balance, Endurance, UE ROM, and U E strengthening MEDICAL PLAN: - Diet Type Regular - Diet - Liquid Texture Regular - Tube Feed N/A - Weight Bearing Precaution NWB right LE - Skin care per protocol - Other See attached MAR (Medication Administration Record) - N/A Perform Consult Certified Prosthetic for prosthesis construction - Diet - Solid Texture Regular - Shower shower DISCHARGE PLAN: - Estimated Length of Stay (days) 11. - Consensus on plan Discharge plan has been discussed with primary caregiver. Patient/Family is in agreement with the yadiel n. Primary caregiver is in agreement with the plan. - Patient/Family Goals Return home independently. - Planned Living Setting Upon Discharge Home, to live with Family/Relatives. Transitional Living. SIGNATURE PANEL: (CDT)
--- NOTE | 2021-07-29 17:59 | PAPE ---
POST ADMISSION PHYSICIAN EVALUATION PATIENT: [facility] MR# [id number] REFERRING DOCTOR VILMA PHAM MD EVALUATION DATE AND TIME 07/29/2021 10:43 (CDT) NAME MUNA ROSSI DATE OF 1950 AGE 70 PHONE N# [id number] GENDER female EVALUATING PHYSICIAN Dr. Satnam Barton M.D. ADMISSION DIAGNOSIS: Right Transtibial Amputation ONSET DATE 07/24/2021 POST-ADMISSION FUNCTIONAL/MEDICAL STATUS: - Bladder Same accident frequency: 7-Ind - No accidents in the past 7 days - Bowel Same accident frequency: 7-Ind - No accidents in the past 7 days - Walking Same score based on distance walked: 0(N/A) - Wheelchair Same score based on distance traveled: 0(N/A) STATUS CHANGE EVALUATION: No change in Functional or Medical Status is identified compared with Pre-Admission screening. PATIENT NEEDS CLOSE MEDICAL SUPERVISION BY A REHABILITATION PHYSICIAN FOR: Coordination of Treatment Team Post-Op Complications Wound Care PATIENT REQUIRES 24X7 REHAB NURSING FOR MEDICAL AND FUNCTIONAL MGT. OF THE FOLLOWING DEFICITS: Disease Management Medication Management Patient requires 24x7 Rehabilitation Nursing for: Pain Issues, Identifying and preventing risk factor s, Monitoring and reporting current medical conditions, Assisting with ambulation and transfer, Tyshawn ting with all ADL-s, Teaching patients about disease process and medications, Family teaching, Provid ing safe environment, Bowel and Bladder Issues, Skin Integrity, and Medication Management Patient/Family Education Providing Safe Environment Skin Integrity PATIENT REQUIRES INTENSIVE, COORDINATED INTERDISCIPLINARY APPROACH TO REHAB: Arranging Home Equipment/Services Discharge Planning Family Intervention/Training Patient needs Dietary and Nutrition Services for: Adequate Nutrition, Nutritional Supplements, and Nu tritional Education Patient needs Drapery Installer and/or Case Management for: Discharge Planning, Arranging Home Equipmen t or Services, and Family Interventions Drapery Installer/Case Management LIST OF IDENTIFIED AND POTENTIAL PROBLEMS: Alteration in leisure activities Bladder, Incontinence Bowel, Incontinence Infection, Actual or Potential Mobility Impaired Pain, Alteration in Comfort Self Care Deficit Skin Integrity, Actual or Potential Urinary Tract Infection (UTI), Actual or Potential RISK FOR COMPLICATIONS - Skin Breakdown Encourage ambulation as tolerated. Repositioning q 2 hours. Use of pillows or foam wedges while in be d. - DVT Active and Passive ROM exercises. Assist patient with frequent position changes. Elevate BLE. - Seizure Identify risk factors. Provide safety measures. Administer prescribed medications and supplemental O2 . - Pain Educate patient on relaxation and deep breathing techniques. Assist patient with frequent position ch anges at least every 2 hours. Anticipate the need for pain medication for optimal pain managment. Adm inister prescribed pain medication as needed. - Stroke Monitor and maintain patient pain level. Monitor patient blood pressure. - Falls Maintain call light within patient reach for easy access to nursing assistance. Provide assistance ge tting out of bed and with ambulation. Provide assistive devices. INTERVENTIONS - Type 2 Diabetes Assess for signs of hyperglycemia. Weight daily. Assess LE for temperature, pulses, color, and sensat ion. Promote proper diet. Monitor blood glucose and effectiveness of medications/Insulin. Monitor pt BP. - Hypertension Promote regular physical activity. Implement healthy diet. Monitor patient B/P and treat with prescri bed medications. Provide comfort measures. - Hyperlipidemia Monitor LDL level and treat with prescribed medications. Implement healthy diet. Monitor and control blood pressure. Promote regular physical activity. - Pain Anticipate the need for pain medication for optimal pain managment. Monitor and treat with prescribed pain medications. Educate pt on relaxation techniques and deep breathing. Monitor for headaches. - BKA Encourage patient to perform prescribes exercises. Provide wound care on a routine basis. Assist with specified ROM exercises for both the affected and unaffected limbs. Assist with ambulation and trans fers. Maintain patency and routinely empty drainage device and monitor wound dressings. Administer an tibiotics as indicated. Monitor pt v/s and for s/s of infection. Perform periodic neurovascular asses sments. Monitor pt labs. PATIENT COULD BE AT RISK FOR COMPLICATIONS FROM ADVERSE MEDICAL CONDITIONS DUE TO HIS/HER COMORBIDITI ES AND THE RIGORS OF THE INTENSIVE REHABILLITATION PROGRAM. METHODS OR INTERVENTIONS TO AVOID COMPLIC ATIONS INCLUDE: - Bleeding Assess lab values and manage abnormalities. Nursing to teach precautions for anti-coagulation therapy . Wound to be assessed every shift. - Infection Clinical staff to assess and manage the signs and symptoms of infection including fever, redness, war mth, etc. - Urinary Tract Infection - Falls Patient will be evaluated for Fall Precautions and will be placed on Fall Precautions as indicated pe r protocol. - Skin Breakdown Nursing will assess skin daily using assessment tool and will place on Skin Breakdown Precautions as indicated per protocol. - Pain Clinical staff may employ non-medication methods such as massage, distraction, decrease stimulus, etc . as needed. Clinical staff will assess patient's pain level every shift per protocol to assess and e nsure pain management effectiveness. Medications will be given and the pain level re-assessed. PRELIMINARY PLAN OF CARE: - Physical Therapy Patient needs Physical Therapy for a daily minimum of 1.5 hours at least 5 out of 7 days, to improve: Mobility, Strengthening, Transfers, Stretching, ROM, Endurance, Ability to manage stairs, Gait, and Balance. - Speech Therapy Patient needs Speech Therapy for a daily minimum of 0.5 hours at least 5 out of 7 days, to improve: S wallowing, Cognition, Language Skills, and Compensatory Strategies. - Rehabilitation Nursing Patient requires 24x7 Rehabilitation Nursing for: Pain Issues, Identifying and preventing risk factor s, Monitoring and reporting current medical conditions, Assisting with ambulation and transfer, Tyshawn ting with all ADL-s, Teaching patients about disease process and medications, Family teaching, Provid ing safe environment, Bowel and Bladder Issues, Skin Integrity, and Medication Management. Patient needs Drapery Installer and/or Case Management for: Discharge Planning, Arranging Home Equipmen t or Services, and Family Interventions. - Dietary and Nutrition Services Patient needs Dietary and Nutrition Services for: Adequate Nutrition, Nutritional Supplements, and Nu tritional Education. - Occupational Therapy Patient needs Occupational Therapy for a daily minimum of 1.5 hours at least 5 out of 7 days, to impr ove Activities of Daily Living, including: Eating, Grooming, Bathing, Dressing, Toileting, Toilet Tra nsfers, Community Reintegration, Higher functional activities, Adaptive Equipment, Splinting, Househo ld Tasks, and Other activities as determined. QI SCORES: - Self-Care A. Eating 03-Partial/moderate assistance B. Oral hygiene 03-Partial/moderate assistance C. Toileting hygiene 03-Partial/moderate assistance E. Shower/bathe self 02-Substantial/maximal assistance F. Upper body dressing 03-Partial/moderate assistance G. Lower body dressing 02-Substantial/maximal assistance H. Putting on/taking off footwear 88-Not attempted due to medical condition or safety concerns - Mobility A. Roll left and right 03-Partial/moderate assistance B. Sit to lying 03-Partial/moderate assistance C. Lying to sitting on side of bed 03-Partial/moderate assistance D. Sit to stand 03-Partial/moderate assistance E. Chair/mdj-fi-hybrn transfer 03-Partial/moderate assistance F. Toilet transfer 03-Partial/moderate assistance G. Car transfer 88-Not attempted due to medical condition or safety concerns I. Walk 10 feet 03-Partial/moderate assistance J. Walk 50 feet with two turns 88-Not attempted due to medical condition or safety concerns K. Walk 150 feet 88-Not attempted due to medical condition or safety concerns L. Walking 10 feet on uneven surfaces 88-Not attempted due to medical condition or safety concerns M. 1 step (curb) 88-Not attempted due to medical condition or safety concerns N. 4 steps 88-Not attempted due to medical condition or safety concerns O. 12 steps 88-Not attempted due to medical condition or safety concerns P. Picking up object 88-Not attempted due to medical condition or safety concerns R. Wheel 50 feet with two turns 88-Not attempted due to medical condition or safety concerns S. Wheel 150 feet 88-Not attempted due to medical condition or safety concerns - Bladder and Bowel Bladder continence Bowel continence - Endurance Fair - Balance Poor - Safety Awareness Fair POTENTIAL FUNCTIONAL GOALS FOR PATIENT TO ACHIEVE BY DISCHARGE: - Safety Precaution Patient will remain free from falls or injury at time of discharge. - Bed Mobility Patient will perform bed mobility at 4-Dolores level of assistance. - Transfers Patient will complete transfers from bed to chair at 4-Dolores level of assistance. - Mobility Patient will ambulate 150 ft with 4-Dolores level of assistance with RW. PATIENT REHAB POTENTIAL Lon ROSSI is able and expected to receive 3 hours of individualized therapy daily on at least 5 of e very 7 days Lon ROSSI's prognosis for significant practical improvement within a reasonable period of time appea rs Good Expected level of measurable improvement will be of a practical value to Lon ROSSI's functional capa city or adaptations to impairments Has a viable Discharge Plan Medically appropriate; condition is sufficiently stable to participate in intensive rehab program DISCHARGE PLAN: - Estimated Length of Stay (days) 11. - Consensus on plan Discharge plan has been discussed with primary caregiver. Patient/Family is in agreement with the yadiel n. Primary caregiver is in agreement with the plan. - Patient/Family Goals Return home independently. - Planned Living Setting Upon Discharge Home, to live with Family/Relatives. Transitional Living. CONCLUSION ON REHABILITATION NECESSITY: I have evaluated patient's pre-admission functional status and, comparing it to the patient's post-ad mission functional status now, I conclude that the pre-admission assessment was accurate. Patient's c ondition on admission supports the medical necessity of admission to [facility]. It is safe to proceed with patient's therapy program. SIGNATURE PANEL: (CDT)
[2021-07-29] MEDS: MAGNESIUM OXIDE 400 MG TAB PO SCH (19:25)
[2021-07-29] MEDS: BIMATOPROST EYE OPTH SCH (19:26)
[2021-07-29] MEDS: ATORVASTATIN 20 MG TAB PO SCH (19:26)
[2021-07-29] MEDS: GLUCERNA SHAKE 237 ML CAN PO SCH (19:26)
[2021-07-30] MEDS: PANTOPRAZOLE 40MG TABLET PO SCH (05:54)
[2021-07-30] MEDS: ENOXAPARIN 30 MG/0.3 ML SQ SCH (07:17)
[2021-07-30] MEDS: lisinopriL 5 MG TAB PO SCH (07:22)
[2021-07-30] MEDS: ASPIRIN 81 MG CHEWABLE TABLET PO SCH (07:22)
[2021-07-30] MEDS: FERROUS SULFATE 325 MG TAB PO SCH (07:23)
[2021-07-30] MEDS: FE SULF/FA/VIT B COMP & C TAB PO SCH (07:23)
[2021-07-30] MEDS: MAGNESIUM OXIDE 400 MG TAB PO SCH ×2 (07:30→19:59)
[2021-07-30] MEDS: INSULIN -REGULAR HUMAN 50 UNIT/0.5 ML ML SQ SCH ×4 (07:48→20:00)
[2021-07-30] MEDS: GLUCERNA SHAKE 237 ML CAN PO SCH ×2 (07:48→19:59)
--- NOTE | 2021-07-30 17:54 | R.PN ---
PROGRESS NOTES ENCOUNTER DATE AND TIME: 07/30/2021 17:45 (CDT) NAME MUNA ROSSI DATE OF : 1950 DATE OF ADMISSION: 07/28/2021 20:15 (CDT) Right Transtibial AmputationCHIEF COMPLAINT: Right BKA, debility SUBJECTIVE: Pt denied any Shortness of Breath. Pt denied any depression. Hgb 7.6, hemocyte plus and ferrous sulfate started. Glucose 164 to 275, and HgA1c 10.1, insulin is re started. Prealbumin 11.5. Ambulated 125' with contact guard assistance using a rolling walker. VITAL SIGNS Temperature: 98.6 F SBP/DBP: 155/73 Pulse: 84 Resp: 16 MEDICATION ALLERGIES: No Known Drug Allergies (NKDA) ENVIRONMENTAL ALLERGIES: - Substance Allergies None Known - Other Allergies None Known CONSULT: Perform Consult Certified Prosthetic for prosthesis construction NURSING: - Shower allowing shower - Skin care per protocol PRECAUTIONS: - Weight Bearing Precaution NWB right LE ACTIVITIES OOB only with supervision THERAPIES: - Orthotics/Prosthetics Prosthetic Evaluation. - Dietary and Nutrition Adequate Nutrition. Nutritional Education. Nutritional Supplements. Evaluate and Treat. - Occupational Therapy Cognitive Retraining. Patient needs Occupational Therapy for a daily minimum of 1.5 hours at least 5 out of 7 days, to improve Activities of Daily Living, including: Eating, Grooming, Bathing, Dressing, Toileting, Toilet Transfers, Community Reintegration, Higher functional activities, Adaptive Equipme nt, Splinting, Household Tasks, and Other activities as determined. Visual Perceptual Training. Evalu ate and Treat. Adaptive Equipment. ADL Training. Patient/Family Education. Transfer Training. - Speech Therapy Cognitive Training. Expressive Language Skills. Memory Strategies. Patient needs Speech Therapy for a daily minimum of 1.5 hours at least 5 out of 7 days, to improve: Swallowing, Cognition, Language Ski lls, and Compensatory Strategies. Receptive Language Skills. Speech Intelligibility Training. Evaluat e and Treat. - Physical Therapy Patient needs Physical Therapy for a daily minimum of 1.5 hours at least 5 out of 7 days, to improve: Mobility, Strengthening, Transfers, Stretching, ROM, Endurance, Ability to manage stairs, Gait, and Balance. Balance Training. Evaluate and Treat. Gait Training. LE ROM. Medical Equipment Assessment an d Evaluation. Patient/Family Education. Safety Awareness. Transfer Training. PHYSICAL EXAM - Gen Alert and awake Lying in bed No apparent distress Oriented to: person, time, and place - Skin Right BKA bandage in place with good hemostasis. Normacephalic - Eyes No abnormalities - ENMT No abnormalities - Neck No abnormalities - CVS RRR - Chest No abnormalities - Abd Soft - GI + bowel sounds Deferred - No abnormalities - Ext Right BKA stump with good hemostasis. - MSK No focal deficits, mild diffuse weakness - Neuro No focal deficits - Psych No abnormalities ASSESSMENT: Pt. is a 70 yo female of unknown race.Pre-morbidly, Pt. was independent/mod-I in Locomotion, Safety A wareness, Social Cognition, and Balance; and she had good Transfers Control, Sphincter Control, Commu nication, Self-Care, and Endurance.Currently, she has deficits of Locomotion, Safety Awareness, Socia l Cognition, Transfers Control, Balance, Sphincter Control, Self-Care, Communication, and Endurance.Judy andrews is now referred to [facility] for acute in-patient rehabilitation in order to maximize patient's functional independence in activities of daily living, strength, ROM, and mobil ity.- Rehab Goal Patient has realistic goal of being discharged at assistance level 7-Ind to reside at Home with Fami ly/Relatives. 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.She elected for surgery, and on 07/24/2021 was admitted to [facility] for Amputa tion of Limb(Unilateral Lower Limb Below the Knee (BK)) by VILMA PHAM MD.MDM/PLAN: - Physical Therapy Gait dysfunction - to improve, our physical therapists will perform initial evaluation of pt's statu s upon admission and devise an individualized program for Gait Training, and Wheel Chair mobility Inability to transfer - to improve, our physical therapists will perform initial evaluation of pt's status upon admission and devise an individualized program for Bed mobility Need for home safety evaluation - to improve, our physical therapists will perform initial evaluatio n of pt's status upon admission and devise an individualized program for Home Evaluation Need in caregiver upon discharge - to improve, our physical therapists will perform initial evaluati on of pt's status upon admission and devise an individualized program for Caregiver Training New precaution - to improve, our physical therapists will perform initial evaluation of pt's status upon admission and devise an individualized program for Patient precaution education Poor balance - to improve, our physical therapists will perform initial evaluation of pt's status up on admission and devise an individualized program for Balance Training Poor endurance - to improve, our physical therapists will perform initial evaluation of pt's status upon admission and devise an individualized program for Endurance Training Weakness - to improve, our physical therapists will perform initial evaluation of pt's status upon a dmission and devise an individualized program for Aquatic Therapy, Neuromuscular Reeducation, and Str engthening Achieving independence - to improve, our physical therapists will perform initial evaluation of pt's status upon admission and devise an individualized program for Community Reintegration Activities - Occupational Therapy ADL deficits - to improve, our occupation therapists will perform initial evaluation of pt's status upon admission and devise an individualized program for Bathing, Bed mobility, Community Reintegratio n, Cooking, Dressing, Eating, Fine Motor Skills, Grooming, Homemaking, Kitchen Mobility, Laundry, Pat ient Education, Safety Awareness, Splinting - Positioning, Transfers(Toilet, Tub, Shower), and Wheel Chair Management Cognitive deficits - to improve, our occupation therapists will perform initial evaluation of pt's s tatus upon admission and devise an individualized program for Cognition - orientation Need for rn progressive care - to improve, our occupation therapists will perform initial evaluation of pt's status upon admission and devise an individualized program for Caregiver Training Weakness - to improve, our occupation therapists will perform initial evaluation of pt's status upon admission and devise an individualized program for Aquatic Therapy, Balance, Endurance, UE ROM, and UE strengthening - Other See attached MAR (Medication Administration Record) - Diet Type Continue Regular - Diet - Liquid Texture Continue Regular - Tube Feed Continue N/A - Weight Bearing Precaution NWB right LE - Skin care per protocol - N/A Perform Consult Certified Prosthetic for prosthesis construction - Diet - Solid Texture Continue Regular - Shower allowing shower FUNCTIONAL STATUS: UPDATED AT WEEKLY TEAM CONFERENCE - Bladder Same accident frequency: 7-Ind - No accidents in the past 7 days - Bowel Same accident frequency: 7-Ind - No accidents in the past 7 days - Walking Same score based on distance walked: 0(N/A) - Wheelchair Same score based on distance traveled: 0(N/A) FUNCTIONAL STATUS: - Self-Care A. Eating Ind B. Grooming Beth C. Bathing modA D. Dressing - Upper modA E. Dressing - Lower Dolores F. Toileting Dolores - Sphincter Control G. Bladder control Beth H. Bowel control Beth - Transfers Control I. Bed/Chair/Wheelchair Dolores J. Toilet Dolores K. Tub/Shower modA - Locomotion L. Walk/Wheelchair (B) Dolores M. Stairs Dep - Communication N. Comprehension (B) Ind O. Expression (B) Ind - Social Cognition P. Social Interaction Ind Q. Problem Solving Beth R. Memory Ind - Endurance Fair - Balance Fair - Safety Awareness Fair QI SCORES: - Self-Care A. Eating 03-Partial/moderate assistance B. Oral hygiene 03-Partial/moderate assistance C. Toileting hygiene 03-Partial/moderate assistance E. Shower/bathe self 02-Substantial/maximal assistance F. Upper body dressing 03-Partial/moderate assistance G. Lower body dressing 02-Substantial/maximal assistance H. Putting on/taking off footwear 88-Not attempted due to medical condition or safety concerns - Mobility A. Roll left and right 03-Partial/moderate assistance B. Sit to lying 03-Partial/moderate assistance C. Lying to sitting on side of bed 03-Partial/moderate assistance D. Sit to stand 03-Partial/moderate assistance E. Chair/ezr-ry-[id number] transfer 03-Partial/moderate assistance F. Toilet transfer 03-Partial/moderate assistance G. Car transfer 88-Not attempted due to medical condition or safety concerns I. Walk 10 feet 03-Partial/moderate assistance J. Walk 50 feet with two turns 88-Not attempted due to medical condition or safety concerns K. Walk 150 feet 88-Not attempted due to medical condition or safety concerns L. Walking 10 feet on uneven surfaces 88-Not attempted due to medical condition or safety concerns M. 1 step (curb) 88-Not attempted due to medical condition or safety concerns N. 4 steps 88-Not attempted due to medical condition or safety concerns O. 12 steps 88-Not attempted due to medical condition or safety concerns P. Picking up object 88-Not attempted due to medical condition or safety concerns R. Wheel 50 feet with two turns 88-Not attempted due to medical condition or safety concerns S. Wheel 150 feet 88-Not attempted due to medical condition or safety concerns - Bladder and Bowel Bladder continence Bowel continence - Endurance Fair - Balance Poor - Safety Awareness Fair CURRENT [facility]. DEFICITS: Self-Care, Mobility, Endurance, Balance, and Safety Awareness SIGNATURE PANEL: (CDT)
[2021-07-30] MEDS: GABAPENTIN 100 MG CAP PO SCH (19:59)
[2021-07-30] MEDS: ATORVASTATIN 20 MG TAB PO SCH (19:59)
[2021-07-30] MEDS: BIMATOPROST EYE OPTH SCH (19:59)
[2021-07-30] MEDS ORDERED: INSULIN GLARGINE 100 UNIT/ML SQ SCH (20:00)
[2021-07-30] MEDS ORDERED: LEVEMIR 12 UNIT SQ SCH (20:00)
[2021-07-30] MEDS: LEVEMIR 12 UNIT SQ SCH (20:02)
[2021-07-31 05:12] LABS: Absolute Lymphocytes (CBC) 1.3 K/uL (0.7-4.9); Hematocrit 24.5 % (36.0-45.0); MCV 73.9 fL (80-100); MPV 8.4 fL (7.6-11.3); RBC Red Blood Cell Count 3.31 M/uL (3.86-4.86)
[2021-07-31] MEDS: ENOXAPARIN 30 MG/0.3 ML SQ SCH (07:21)
[2021-07-31] MEDS: PANTOPRAZOLE 40MG TABLET PO SCH (07:22)
[2021-07-31] MEDS: ASPIRIN 81 MG CHEWABLE TABLET PO SCH (07:22)
[2021-07-31] MEDS: lisinopriL 5 MG TAB PO SCH (07:23)
[2021-07-31] MEDS: FE SULF/FA/VIT B COMP & C TAB PO SCH (07:24)
[2021-07-31] MEDS: FERROUS SULFATE 325 MG TAB PO SCH (07:24)
[2021-07-31] MEDS: MAGNESIUM OXIDE 400 MG TAB PO SCH ×2 (07:26→20:43)
[2021-07-31] MEDS: LEVEMIR 12 UNIT SQ SCH ×2 (08:29→20:43)
[2021-07-31] MEDS: GLUCERNA SHAKE 237 ML CAN PO SCH ×2 (08:30→20:44)
[2021-07-31] MEDS: INSULIN -REGULAR HUMAN 50 UNIT/0.5 ML ML SQ SCH ×4 (08:30→20:44)
--- NOTE | 2021-07-31 17:29 | R.PN ---
PROGRESS NOTES ENCOUNTER DATE AND TIME: 07/31/2021 17:25 (CDT) NAME MUNA ROSSI DATE OF : 1950 DATE OF ADMISSION: 07/28/2021 20:15 (CDT) Right Transtibial AmputationCHIEF COMPLAINT: Right BKA, debility SUBJECTIVE: Pt denied any Shortness of Breath. Pt denied any depression. WBC 9.7, Hgb 7.9, hemocyte plus and ferrous sulfate started. Glucose 143 to 200, and HgA1c 10.1, Leve alyson Flextouch 12 units sq bid. Prealbumin 11.5. Ambulated 375' with contact guard assistance using a rolling walker. VITAL SIGNS Temperature: 98.4F SBP/DBP: 117/52 Pulse: 84 Resp: 15 MEDICATION ALLERGIES: No Known Drug Allergies (NKDA) ENVIRONMENTAL ALLERGIES: - Substance Allergies None Known - Other Allergies None Known CONSULT: Perform Consult Certified Prosthetic for prosthesis construction NURSING: - Shower allowing shower - Skin care per protocol PRECAUTIONS: - Weight Bearing Precaution NWB right LE ACTIVITIES OOB only with supervision THERAPIES: - Orthotics/Prosthetics Prosthetic Evaluation. - Dietary and Nutrition Adequate Nutrition. Nutritional Education. Nutritional Supplements. Evaluate and Treat. - Occupational Therapy Cognitive Retraining. Patient needs Occupational Therapy for a daily minimum of 1.5 hours at least 5 out of 7 days, to improve Activities of Daily Living, including: Eating, Grooming, Bathing, Dressing, Toileting, Toilet Transfers, Community Reintegration, Higher functional activities, Adaptive Equipme nt, Splinting, Household Tasks, and Other activities as determined. Visual Perceptual Training. Evalu ate and Treat. Adaptive Equipment. ADL Training. Patient/Family Education. Transfer Training. - Speech Therapy Cognitive Training. Expressive Language Skills. Memory Strategies. Patient needs Speech Therapy for a daily minimum of 1.5 hours at least 5 out of 7 days, to improve: Swallowing, Cognition, Language Ski lls, and Compensatory Strategies. Receptive Language Skills. Speech Intelligibility Training. Evaluat e and Treat. - Physical Therapy Patient needs Physical Therapy for a daily minimum of 1.5 hours at least 5 out of 7 days, to improve: Mobility, Strengthening, Transfers, Stretching, ROM, Endurance, Ability to manage stairs, Gait, and Balance. Balance Training. Evaluate and Treat. Gait Training. LE ROM. Medical Equipment Assessment an d Evaluation. Patient/Family Education. Safety Awareness. Transfer Training. PHYSICAL EXAM - Gen Alert and awake Lying in bed No apparent distress Oriented to: person, time, and place - Skin Right BKA bandage in place with good hemostasis. Normacephalic - Eyes No abnormalities - ENMT No abnormalities - Neck No abnormalities - CVS RRR - Chest No abnormalities - Abd Soft - GI + bowel sounds Deferred - No abnormalities - Ext Right BKA stump with good hemostasis. - MSK No focal deficits, mild diffuse weakness - Neuro No focal deficits - Psych No abnormalities ASSESSMENT: Pt. is a 70 yo female of unknown race.Pre-morbidly, Pt. was independent/mod-I in Locomotion, Safety A wareness, Social Cognition, and Balance; and she had good Transfers Control, Sphincter Control, Commu nication, Self-Care, and Endurance.Currently, she has deficits of Locomotion, Safety Awareness, Socia l Cognition, Transfers Control, Balance, Sphincter Control, Self-Care, Communication, and Endurance.Judy andrews is now referred to [facility] for acute in-patient rehabilitation in order to maximize patient's functional independence in activities of daily living, strength, ROM, and mobil ity.- Rehab Goal Patient has realistic goal of being discharged at assistance level 7-Ind to reside at Home with Fami ly/Relatives. 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.She elected for surgery, and on 07/24/2021 was admitted to [facility] for Amputa tion of Limb(Unilateral Lower Limb Below the Knee (BK)) by VILMA PHAM MD.MDM/PLAN: - Physical Therapy Gait dysfunction - to improve, our physical therapists will perform initial evaluation of pt's statu s upon admission and devise an individualized program for Gait Training, and Wheel Chair mobility Inability to transfer - to improve, our physical therapists will perform initial evaluation of pt's status upon admission and devise an individualized program for Bed mobility Need for home safety evaluation - to improve, our physical therapists will perform initial evaluatio n of pt's status upon admission and devise an individualized program for Home Evaluation Need in caregiver upon discharge - to improve, our physical therapists will perform initial evaluati on of pt's status upon admission and devise an individualized program for Caregiver Training New precaution - to improve, our physical therapists will perform initial evaluation of pt's status upon admission and devise an individualized program for Patient precaution education Poor balance - to improve, our physical therapists will perform initial evaluation of pt's status up on admission and devise an individualized program for Balance Training Poor endurance - to improve, our physical therapists will perform initial evaluation of pt's status upon admission and devise an individualized program for Endurance Training Weakness - to improve, our physical therapists will perform initial evaluation of pt's status upon a dmission and devise an individualized program for Aquatic Therapy, Neuromuscular Reeducation, and Str engthening Achieving independence - to improve, our physical therapists will perform initial evaluation of pt's status upon admission and devise an individualized program for Community Reintegration Activities - Occupational Therapy ADL deficits - to improve, our occupation therapists will perform initial evaluation of pt's status upon admission and devise an individualized program for Bathing, Bed mobility, Community Reintegratio n, Cooking, Dressing, Eating, Fine Motor Skills, Grooming, Homemaking, Kitchen Mobility, Laundry, Pat ient Education, Safety Awareness, Splinting - Positioning, Transfers(Toilet, Tub, Shower), and Wheel Chair Management Cognitive deficits - to improve, our occupation therapists will perform initial evaluation of pt's s tatus upon admission and devise an individualized program for Cognition - orientation Need for manager critical care unit - to improve, our occupation therapists will perform initial evaluation of pt's status upon admission and devise an individualized program for Caregiver Training Weakness - to improve, our occupation therapists will perform initial evaluation of pt's status upon admission and devise an individualized program for Aquatic Therapy, Balance, Endurance, UE ROM, and UE strengthening - Other See attached MAR (Medication Administration Record) - Diet Type Continue Regular - Diet - Liquid Texture Continue Regular - Tube Feed Continue N/A - Weight Bearing Precaution NWB right LE - Skin care per protocol - N/A Perform Consult Certified Prosthetic for prosthesis construction - Diet - Solid Texture Continue Regular - Shower allowing shower FUNCTIONAL STATUS: UPDATED AT WEEKLY TEAM CONFERENCE - Bladder Same accident frequency: 7-Ind - No accidents in the past 7 days - Bowel Same accident frequency: 7-Ind - No accidents in the past 7 days - Walking Same score based on distance walked: 0(N/A) - Wheelchair Same score based on distance traveled: 0(N/A) FUNCTIONAL STATUS: - Self-Care A. Eating Ind B. Grooming Beth C. Bathing modA D. Dressing - Upper modA E. Dressing - Lower Dolores F. Toileting Dolores - Sphincter Control G. Bladder control Beth H. Bowel control Beth - Transfers Control I. Bed/Chair/Wheelchair Dolores J. Toilet Dolores K. Tub/Shower modA - Locomotion L. Walk/Wheelchair (B) Dolores M. Stairs Dep - Communication N. Comprehension (B) Ind O. Expression (B) Ind - Social Cognition P. Social Interaction Ind Q. Problem Solving Beth R. Memory Ind - Endurance Fair - Balance Fair - Safety Awareness Fair QI SCORES: - Self-Care A. Eating 03-Partial/moderate assistance B. Oral hygiene 03-Partial/moderate assistance C. Toileting hygiene 03-Partial/moderate assistance E. Shower/bathe self 02-Substantial/maximal assistance F. Upper body dressing 03-Partial/moderate assistance G. Lower body dressing 02-Substantial/maximal assistance H. Putting on/taking off footwear 88-Not attempted due to medical condition or safety concerns - Mobility A. Roll left and right 03-Partial/moderate assistance B. Sit to lying 03-Partial/moderate assistance C. Lying to sitting on side of bed 03-Partial/moderate assistance D. Sit to stand 03-Partial/moderate assistance E. Chair/[id number] transfer 03-Partial/moderate assistance F. Toilet transfer 03-Partial/moderate assistance G. Car transfer 88-Not attempted due to medical condition or safety concerns I. Walk 10 feet 03-Partial/moderate assistance J. Walk 50 feet with two turns 88-Not attempted due to medical condition or safety concerns K. Walk 150 feet 88-Not attempted due to medical condition or safety concerns L. Walking 10 feet on uneven surfaces 88-Not attempted due to medical condition or safety concerns M. 1 step (curb) 88-Not attempted due to medical condition or safety concerns N. 4 steps 88-Not attempted due to medical condition or safety concerns O. 12 steps 88-Not attempted due to medical condition or safety concerns P. Picking up object 88-Not attempted due to medical condition or safety concerns R. Wheel 50 feet with two turns 88-Not attempted due to medical condition or safety concerns S. Wheel 150 feet 88-Not attempted due to medical condition or safety concerns - Bladder and Bowel Bladder continence Bowel continence - Endurance Fair - Balance Poor - Safety Awareness Fair CURRENT COUNT INCLUDES THE [facility]. DEFICITS: Self-Care, Mobility, Endurance, Balance, and Safety Awareness SIGNATURE PANEL: (CDT)
[2021-07-31] MEDS: ATORVASTATIN 20 MG TAB PO SCH (20:43)
[2021-07-31] MEDS: BIMATOPROST EYE OPTH SCH (20:43)
[2021-07-31] MEDS: GABAPENTIN 100 MG CAP PO SCH (20:43)
[2021-08-01 06:27] LABS: Hematocrit 24.9 % (36.0-45.0); MCV 74.2 fL (80-100); MPV 8.5 fL (7.6-11.3); RBC Red Blood Cell Count 3.36 M/uL (3.86-4.86)
[2021-08-01 06:46] LABS: Albumin 2.3 g/dL (3.4-5.0); Magnesium 2.1 mg/dL (1.8-2.4); Potassium 4.4 mmol/L (3.5-5.1); Prealbumin 14.1 mg/dL (20-40)
[2021-08-01] MEDS: ENOXAPARIN 30 MG/0.3 ML SQ SCH (07:21)
[2021-08-01] MEDS: PANTOPRAZOLE 40MG TABLET PO SCH (07:26)
[2021-08-01] MEDS: ASPIRIN 81 MG CHEWABLE TABLET PO SCH (07:27)
[2021-08-01] MEDS: lisinopriL 5 MG TAB PO SCH (07:27)
[2021-08-01] MEDS: FERROUS SULFATE 325 MG TAB PO SCH (07:28)
[2021-08-01] MEDS: MAGNESIUM OXIDE 400 MG TAB PO SCH ×2 (07:28→19:19)
[2021-08-01] MEDS: FE SULF/FA/VIT B COMP & C TAB PO SCH (07:28)
[2021-08-01] MEDS: LEVEMIR 12 UNIT SQ SCH (07:29)
[2021-08-01] MEDS: INSULIN -REGULAR HUMAN 50 UNIT/0.5 ML ML SQ SCH ×4 (07:29→20:27)
[2021-08-01] MEDS: GLUCERNA SHAKE 237 ML CAN PO SCH ×2 (07:29→19:22)
--- NOTE | 2021-08-01 17:44 | R.PN ---
PROGRESS NOTES ENCOUNTER DATE AND TIME: 08/01/2021 17:39 (CDT) NAME MUNA ROSSI DATE OF : 1950 DATE OF ADMISSION: 07/28/2021 20:15 (CDT) Right Transtibial AmputationCHIEF COMPLAINT: Right BKA, debility SUBJECTIVE: Pt denied any Shortness of Breath. Pt denied any depression. WBC 9.0, Hgb 8.2, hemocyte plus and ferrous sulfate started. Glucose 171 to 184, and HgA1c 10.1, Leve alyson Flextouch 12 units sq bid. Prealbumin 14.1. Ambulated 500' with modified independence using a rolling walker. VITAL SIGNS Temperature: 97.4 F SBP/DBP: 152/67 Pulse: 92 Resp: 16 MEDICATION ALLERGIES: No Known Drug Allergies (NKDA) ENVIRONMENTAL ALLERGIES: - Substance Allergies None Known - Other Allergies None Known CONSULT: Perform Consult Certified Prosthetic for prosthesis construction NURSING: - Shower allowing shower - Skin care per protocol PRECAUTIONS: - Weight Bearing Precaution NWB right LE ACTIVITIES OOB only with supervision THERAPIES: - Orthotics/Prosthetics Prosthetic Evaluation. - Dietary and Nutrition Adequate Nutrition. Nutritional Education. Nutritional Supplements. Evaluate and Treat. - Occupational Therapy Cognitive Retraining. Patient needs Occupational Therapy for a daily minimum of 1.5 hours at least 5 out of 7 days, to improve Activities of Daily Living, including: Eating, Grooming, Bathing, Dressing, Toileting, Toilet Transfers, Community Reintegration, Higher functional activities, Adaptive Equipme nt, Splinting, Household Tasks, and Other activities as determined. Visual Perceptual Training. Evalu ate and Treat. Adaptive Equipment. ADL Training. Patient/Family Education. Transfer Training. - Speech Therapy Cognitive Training. Expressive Language Skills. Memory Strategies. Patient needs Speech Therapy for a daily minimum of 1.5 hours at least 5 out of 7 days, to improve: Swallowing, Cognition, Language Ski lls, and Compensatory Strategies. Receptive Language Skills. Speech Intelligibility Training. Evaluat e and Treat. - Physical Therapy Patient needs Physical Therapy for a daily minimum of 1.5 hours at least 5 out of 7 days, to improve: Mobility, Strengthening, Transfers, Stretching, ROM, Endurance, Ability to manage stairs, Gait, and Balance. Balance Training. Evaluate and Treat. Gait Training. LE ROM. Medical Equipment Assessment an d Evaluation. Patient/Family Education. Safety Awareness. Transfer Training. PHYSICAL EXAM - Gen Alert and awake Lying in bed No apparent distress Oriented to: person, time, and place - Skin Right BKA bandage in place with good hemostasis. Normacephalic - Eyes No abnormalities - ENMT No abnormalities - Neck No abnormalities - CVS RRR - Chest No abnormalities - Abd Soft - GI + bowel sounds Deferred - No abnormalities - Ext Right BKA stump with good hemostasis. - MSK No focal deficits, mild diffuse weakness - Neuro No focal deficits - Psych No abnormalities ASSESSMENT: Pt. is a 70 yo female of unknown race.Pre-morbidly, Pt. was independent/mod-I in Locomotion, Safety A wareness, Social Cognition, and Balance; and she had good Transfers Control, Sphincter Control, Commu nication, Self-Care, and Endurance.Currently, she has deficits of Locomotion, Safety Awareness, Socia l Cognition, Transfers Control, Balance, Sphincter Control, Self-Care, Communication, and Endurance.Judy andrews is now referred to [facility] for acute in-patient rehabilitation in order to maximize patient's functional independence in activities of daily living, strength, ROM, and mobil ity.- Rehab Goal Patient has realistic goal of being discharged at assistance level 7-Ind to reside at Home with Fami ly/Relatives. 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.She elected for surgery, and on 07/24/2021 was admitted to [facility] for Amputa tion of Limb(Unilateral Lower Limb Below the Knee (BK)) by VILMA PHAM MD.MDM/PLAN: - Physical Therapy Gait dysfunction - to improve, our physical therapists will perform initial evaluation of pt's statu s upon admission and devise an individualized program for Gait Training, and Wheel Chair mobility Inability to transfer - to improve, our physical therapists will perform initial evaluation of pt's status upon admission and devise an individualized program for Bed mobility Need for home safety evaluation - to improve, our physical therapists will perform initial evaluatio n of pt's status upon admission and devise an individualized program for Home Evaluation Need in caregiver upon discharge - to improve, our physical therapists will perform initial evaluati on of pt's status upon admission and devise an individualized program for Caregiver Training New precaution - to improve, our physical therapists will perform initial evaluation of pt's status upon admission and devise an individualized program for Patient precaution education Poor balance - to improve, our physical therapists will perform initial evaluation of pt's status up on admission and devise an individualized program for Balance Training Poor endurance - to improve, our physical therapists will perform initial evaluation of pt's status upon admission and devise an individualized program for Endurance Training Weakness - to improve, our physical therapists will perform initial evaluation of pt's status upon a dmission and devise an individualized program for Aquatic Therapy, Neuromuscular Reeducation, and Str engthening Achieving independence - to improve, our physical therapists will perform initial evaluation of pt's status upon admission and devise an individualized program for Community Reintegration Activities - Occupational Therapy ADL deficits - to improve, our occupation therapists will perform initial evaluation of pt's status upon admission and devise an individualized program for Bathing, Bed mobility, Community Reintegratio n, Cooking, Dressing, Eating, Fine Motor Skills, Grooming, Homemaking, Kitchen Mobility, Laundry, Pat ient Education, Safety Awareness, Splinting - Positioning, Transfers(Toilet, Tub, Shower), and Wheel Chair Management Cognitive deficits - to improve, our occupation therapists will perform initial evaluation of pt's s tatus upon admission and devise an individualized program for Cognition - orientation Need for healthcare technician - to improve, our occupation therapists will perform initial evaluation of pt's status upon admission and devise an individualized program for Caregiver Training Weakness - to improve, our occupation therapists will perform initial evaluation of pt's status upon admission and devise an individualized program for Aquatic Therapy, Balance, Endurance, UE ROM, and UE strengthening - Other See attached MAR (Medication Administration Record) - Diet Type Continue Regular - Diet - Liquid Texture Continue Regular - Tube Feed Continue N/A - Weight Bearing Precaution NWB right LE - Skin care per protocol - N/A Perform Consult Certified Prosthetic for prosthesis construction - Diet - Solid Texture Continue Regular - Shower allowing shower FUNCTIONAL STATUS: UPDATED AT WEEKLY TEAM CONFERENCE - Bladder Same accident frequency: 7-Ind - No accidents in the past 7 days - Bowel Same accident frequency: 7-Ind - No accidents in the past 7 days - Walking Same score based on distance walked: 0(N/A) - Wheelchair Same score based on distance traveled: 0(N/A) FUNCTIONAL STATUS: - Self-Care A. Eating Ind B. Grooming Beth C. Bathing modA D. Dressing - Upper modA E. Dressing - Lower Dolores F. Toileting Dolores - Sphincter Control G. Bladder control Beth H. Bowel control Beth - Transfers Control I. Bed/Chair/Wheelchair Dolores J. Toilet Dolores K. Tub/Shower modA - Locomotion L. Walk/Wheelchair (B) Dolores M. Stairs Dep - Communication N. Comprehension (B) Ind O. Expression (B) Ind - Social Cognition P. Social Interaction Ind Q. Problem Solving Beth R. Memory Ind - Endurance Fair - Balance Fair - Safety Awareness Fair QI SCORES: - Self-Care A. Eating 03-Partial/moderate assistance B. Oral hygiene 03-Partial/moderate assistance C. Toileting hygiene 03-Partial/moderate assistance E. Shower/bathe self 02-Substantial/maximal assistance F. Upper body dressing 03-Partial/moderate assistance G. Lower body dressing 02-Substantial/maximal assistance H. Putting on/taking off footwear 88-Not attempted due to medical condition or safety concerns - Mobility A. Roll left and right 03-Partial/moderate assistance B. Sit to lying 03-Partial/moderate assistance C. Lying to sitting on side of bed 03-Partial/moderate assistance D. Sit to stand 03-Partial/moderate assistance E. Chair/[id number] transfer 03-Partial/moderate assistance F. Toilet transfer 03-Partial/moderate assistance G. Car transfer 88-Not attempted due to medical condition or safety concerns I. Walk 10 feet 03-Partial/moderate assistance J. Walk 50 feet with two turns 88-Not attempted due to medical condition or safety concerns K. Walk 150 feet 88-Not attempted due to medical condition or safety concerns L. Walking 10 feet on uneven surfaces 88-Not attempted due to medical condition or safety concerns M. 1 step (curb) 88-Not attempted due to medical condition or safety concerns N. 4 steps 88-Not attempted due to medical condition or safety concerns O. 12 steps 88-Not attempted due to medical condition or safety concerns P. Picking up object 88-Not attempted due to medical condition or safety concerns R. Wheel 50 feet with two turns 88-Not attempted due to medical condition or safety concerns S. Wheel 150 feet 88-Not attempted due to medical condition or safety concerns - Bladder and Bowel Bladder continence Bowel continence - Endurance Fair - Balance Poor - Safety Awareness Fair CURRENT [facility]. DEFICITS: Self-Care, Mobility, Endurance, Balance, and Safety Awareness SIGNATURE PANEL: (CDT)
[2021-08-01] MEDS: GABAPENTIN 100 MG CAP PO SCH (19:19)
[2021-08-01] MEDS: ATORVASTATIN 20 MG TAB PO SCH (19:19)
[2021-08-01] MEDS: BIMATOPROST EYE OPTH SCH (19:22)
[2021-08-01] MEDS: LEVEMIR 15 UNIT SQ SCH (20:27)
[2021-08-02] MEDS: PANTOPRAZOLE 40MG TABLET PO SCH (06:39)
[2021-08-02] MEDS: INSULIN -REGULAR HUMAN 50 UNIT/0.5 ML ML SQ SCH ×4 (07:17→20:33)
[2021-08-02] MEDS: FE SULF/FA/VIT B COMP & C TAB PO SCH (07:25)
[2021-08-02] MEDS: MAGNESIUM OXIDE 400 MG TAB PO SCH ×2 (07:25→20:31)
[2021-08-02] MEDS: GLUCERNA SHAKE 237 ML CAN PO SCH ×2 (07:25→20:31)
[2021-08-02] MEDS: LEVEMIR 15 UNIT SQ SCH (07:25)
[2021-08-02] MEDS: FERROUS SULFATE 325 MG TAB PO SCH (07:26)
[2021-08-02] MEDS: ENOXAPARIN 30 MG/0.3 ML SQ SCH (07:26)
[2021-08-02] MEDS: ASPIRIN 81 MG CHEWABLE TABLET PO SCH (07:26)
[2021-08-02] MEDS: lisinopriL 5 MG TAB PO SCH (07:26)
--- NOTE | 2021-08-02 09:55 | P.RH.PN ---
Estimated Length of Stay: 10 Expected Discharge Date: 08/07/21 Discharge Disposition Plan: Home Family Support: Yes Alf Goal: Mobility, Transfers, Self Care Vital Signs: Last Vital Signs Temp 96.4 F L 08/02/21 09:02 Pulse 89 08/02/21 09:02 Resp 17 08/02/21 09:02 BP 134/64 08/02/21 09:02 Pulse Ox 100 08/02/21 09:02 Laboratory: Laboratory Last Values WBC 9.0 K/uL (4.3-10.9) 08/01/21 05:46 RBC 3.36 M/uL (3.86-4.86) L 08/01/21 05:46 Hgb 8.2 g/dL (12.0-15.0) L 08/01/21 05:46 Hct 24.9 % (36.0-45.0) L 08/01/21 05:46 MCV 74.2 fL (80-100) L 08/01/21 05:46 MCH 24.4 pg (27.0-35.0) L 08/01/21 05:46 MCHC 33.0 g/dL (32.0-36.0) 08/01/21 05:46 RDW 14.1 % (12.1-15.2) 08/01/21 05:46 Plt Count 434 K/uL (152-406) H 08/01/21 05:46 MPV 8.5 fL (7.6-11.3) 08/01/21 05:46 Neutrophils % 77.3 % (41.7-73.7) H 07/31/21 04:48 Lymphocytes % 13.0 % (15.3-44.8) L 07/31/21 04:48 Monocytes % 7.2 % (3.3-12.3) 07/31/21 04:48 Eosinophils % 1.5 % (0-4.4) 07/31/21 04:48 Basophils % 1.0 % (0-1.3) 07/31/21 04:48 Absolute Neutrophils 7.5 K/uL (1.8-8.0) 07/31/21 04:48 Segmented Neutrophils 70 % (40-80) 07/29/21 04:04 Absolute Lymphocytes 1.3 K/uL (0.7-4.9) 07/31/21 04:48 Lymphocytes 20 % (15-42) 07/29/21 04:04 Monocytes 7 % (0-10) 07/29/21 04:04 Absolute Monocytes 0.7 K/uL (0.1-1.3) 07/31/21 04:48 Eosinophils 1 % (0-3) 07/29/21 04:04 Absolute Eosinophils 0.1 K/uL (0-0.5) 07/31/21 04:48 Absolute Basophils 0.1 K/uL (0-0.5) 07/31/21 04:48 Metamyelocytes 2 % (0-0) H 07/29/21 04:04 Platelet Estimate Incr 07/29/21 04:04 Microcytosis 1+ 07/29/21 04:04 Morphology Comment Noted (NOT SEEN) 07/29/21 04:04 Sodium 139 mmol/L (136-145) 08/01/21 05:46 Potassium 4.4 mmol/L (3.5-5.1) 08/01/21 05:46 Chloride 106 mmol/L (98-107) 08/01/21 05:46 Carbon Dioxide 28 mmol/L (21-32) 08/01/21 05:46 Anion Gap 9.4 mEq/L (5.0-15.0) 08/01/21 05:46 BUN 27 mg/dL (7-18) H 08/01/21 05:46 Creatinine 0.76 mg/dL (0.55-1.3) 08/01/21 05:46 Est GFR (CKD-EPI) 85 ml/min (=/>90) L 08/01/21 05:46 Glucose 216 mg/dL (74-106) H 08/01/21 05:46 POC Glucose 188 mg/dL (65-120) H 08/02/21 07:15 Hemoglobin A1c 10.1 % (4.2-6.3) H 07/29/21 04:04 Calcium 8.4 mg/dL (8.5-10.1) L 08/01/21 05:46 Magnesium 2.1 mg/dL (1.8-2.4) D 08/01/21 05:46 Albumin 2.3 g/dL (3.4-5.0) L 08/01/21 05:46 Prealbumin 14.1 mg/dL (20-40) L 08/01/21 05:46 Urine Color Yellow (Yellow) 07/29/21 00:30 Urine Appearance Clear (Clear) 07/29/21 00:30 Urine pH 5.5 (5.0-7.0) 07/29/21 00:30 Ur Specific [place] 1.020 (1.005-1.030) 07/29/21 00:30 Glucose (UA)(Auto) 2+ (Negative) H 07/29/21 00:30 Urine Ketones Negative (Negative) 07/29/21 00:30 Urine Blood Negative (Negative) 07/29/21 00:30 Urine Nitrite Negative (Negative) 07/29/21 00:30 Urine Bilirubin Negative (Negative) 07/29/21 00:30 Urine Urobilinogen 0.2 mg/dL (0.2-1.0) 07/29/21 00:30 Ur Leukocyte Esterase Negative (Negative) 07/29/21 00:30 Urine RBC <5 /HPF (NONE SEEN) 07/29/21 00:30 Urine WBC None seen /HPF (<5) 07/29/21 00:30 Ur Squamous Epith Cells <5 /HPF (NONE SEEN) 07/29/21 00:30 Ur Urothelial Cells Cancelled 07/29/21 00:15 Calcium Oxalate Crystal Cancelled 07/29/21 00:15 Uric Acid Crystals Cancelled 07/29/21 00:15 Triple Phos Crystals Cancelled 07/29/21 00:15 Other Crystals Cancelled 07/29/21 00:15 Amorphous Sediment Cancelled 07/29/21 00:15 Glitter Cells Cancelled 07/29/21 00:15 Urine Bacteria None seen /HPF (<20) 07/29/21 00:30 Hyaline Casts Cancelled 07/29/21 00:15 Fine Granular Casts Cancelled 07/29/21 00:15 Coarse Granular Casts Cancelled 07/29/21 00:15 Waxy Casts Cancelled 07/29/21 00:15 RBC Casts Cancelled 07/29/21 00:15 WBC Casts Cancelled 07/29/21 00:15 Urine Mucus Cancelled 07/29/21 00:15 Urine Other Cancelled 07/29/21 00:15 Urine Trichomonas Cancelled 07/29/21 00:15 Urine Yeast Cancelled 07/29/21 00:15 Ur Yeast w Hyphae Cancelled 07/29/21 00:15 Urine Yeast (Budding) Cancelled 07/29/21 00:15 Urine Sperm Cancelled 07/29/21 00:15 Urine Culture Reflexed Not needed 07/29/21 00:30 Urine Total Volume Cancelled 07/29/21 00:15 Urine Total Protein Trace (Negative) H 07/29/21 00:30 SARS-CoV-2 Rap RNA(RT-PCR) Negative (NEGATIVE) 07/30/21 04:25 Weight: 87 lb Wound Present: No Closed Surgical Incision Present: No Negative Pressure Wound Therapy Present: No Physician Update: Independent to mod I bed mobility, sit to stand at SBA, 375' with rest brakes CGA, up and down 1 step with CGA. Set up for bathing, upper body dressing, toileting, CGA for shower transfers, supervision for lower body dressing. Functional Improvement: Patient continues progress toward reaching short-term and long-term goals. Patient presents w/ great attitude toward therapy, and good overall work ethic. Summary: Patient's care plan and terminal gauger goals have been reviewed and revised as necessary. Please see the Rehabilitation Signature page for all necessary signatures.
[2021-08-02] MEDS: GABAPENTIN 100 MG CAP PO SCH (20:31)
[2021-08-02] MEDS: ATORVASTATIN 20 MG TAB PO SCH (20:31)
[2021-08-02] MEDS: BIMATOPROST EYE OPTH SCH (20:31)
[2021-08-02] MEDS: INSULIN DETEMIR SQ SCH (20:33)
[2021-08-03] MEDS: INSULIN -REGULAR HUMAN 50 UNIT/0.5 ML ML SQ SCH ×4 (07:08→21:02)
[2021-08-03] MEDS: PANTOPRAZOLE 40MG TABLET PO SCH (07:11)
[2021-08-03] MEDS: ENOXAPARIN 30 MG/0.3 ML SQ SCH (07:11)
[2021-08-03] MEDS: FE SULF/FA/VIT B COMP & C TAB PO SCH (07:11)
[2021-08-03] MEDS: ASPIRIN 81 MG CHEWABLE TABLET PO SCH (07:11)
[2021-08-03] MEDS: FERROUS SULFATE 325 MG TAB PO SCH (07:12)
[2021-08-03] MEDS: MAGNESIUM OXIDE 400 MG TAB PO SCH ×2 (07:15→19:32)
[2021-08-03] MEDS: GLUCERNA SHAKE 237 ML CAN PO SCH ×2 (07:41→19:32)
[2021-08-03] MEDS: lisinopriL 5 MG TAB PO SCH (08:00)
[2021-08-03] MEDS: INSULIN DETEMIR SQ SCH (09:35)
--- NOTE | 2021-08-03 16:33 | R.PN ---
PROGRESS NOTES ENCOUNTER DATE AND TIME: 08/03/2021 16:30 (CDT) NAME MUNA ROSSI DATE OF : 1950 DATE OF ADMISSION: 07/28/2021 20:15 (CDT) Right Transtibial AmputationCHIEF COMPLAINT: Right BKA, debility SUBJECTIVE: Pt denied any Shortness of Breath. Pt denied any depression. WBC 9.0, Hgb 8.2, hemocyte plus and ferrous sulfate started. Glucose 55 to 266, and HgA1c 10.1, Levem ir Flextouch 12 units sq bid. Prealbumin 14.1. Ambulated 500' with contact guard assistance using a rolling walker. VITAL SIGNS Temperature: 97.7 F SBP/DBP: 111/49 Pulse: 87 Resp: 16 MEDICATION ALLERGIES: No Known Drug Allergies (NKDA) ENVIRONMENTAL ALLERGIES: - Substance Allergies None Known - Other Allergies None Known CONSULT: Perform Consult Certified Prosthetic for prosthesis construction NURSING: - Shower allowing shower - Skin care per protocol PRECAUTIONS: - Weight Bearing Precaution NWB right LE ACTIVITIES OOB only with supervision THERAPIES: - Orthotics/Prosthetics Prosthetic Evaluation. - Dietary and Nutrition Adequate Nutrition. Nutritional Education. Nutritional Supplements. Evaluate and Treat. - Occupational Therapy Cognitive Retraining. Patient needs Occupational Therapy for a daily minimum of 1.5 hours at least 5 out of 7 days, to improve Activities of Daily Living, including: Eating, Grooming, Bathing, Dressing, Toileting, Toilet Transfers, Community Reintegration, Higher functional activities, Adaptive Equipme nt, Splinting, Household Tasks, and Other activities as determined. Visual Perceptual Training. Evalu ate and Treat. Adaptive Equipment. ADL Training. Patient/Family Education. Transfer Training. - Speech Therapy Cognitive Training. Expressive Language Skills. Memory Strategies. Patient needs Speech Therapy for a daily minimum of 1.5 hours at least 5 out of 7 days, to improve: Swallowing, Cognition, Language Ski lls, and Compensatory Strategies. Receptive Language Skills. Speech Intelligibility Training. Evaluat e and Treat. - Physical Therapy Patient needs Physical Therapy for a daily minimum of 1.5 hours at least 5 out of 7 days, to improve: Mobility, Strengthening, Transfers, Stretching, ROM, Endurance, Ability to manage stairs, Gait, and Balance. Balance Training. Evaluate and Treat. Gait Training. LE ROM. Medical Equipment Assessment an d Evaluation. Patient/Family Education. Safety Awareness. Transfer Training. PHYSICAL EXAM - Gen Alert and awake Lying in bed No apparent distress Oriented to: person, time, and place - Skin Right BKA bandage in place with good hemostasis. Normacephalic - Eyes No abnormalities - ENMT No abnormalities - Neck No abnormalities - CVS RRR - Chest No abnormalities - Abd Soft - GI + bowel sounds Deferred - No abnormalities - Ext Right BKA stump with good hemostasis. - MSK No focal deficits, mild diffuse weakness - Neuro No focal deficits - Psych No abnormalities ASSESSMENT: Pt. is a 70 yo female of unknown race.Pre-morbidly, Pt. was independent/mod-I in Locomotion, Safety A wareness, Social Cognition, and Balance; and she had good Transfers Control, Sphincter Control, Commu nication, Self-Care, and Endurance.Currently, she has deficits of Locomotion, Safety Awareness, Socia l Cognition, Transfers Control, Balance, Sphincter Control, Self-Care, Communication, and Endurance.P darryl is now referred to [facility] for acute in-patient rehabilitation in order to maximize patient's functional independence in activities of daily living, strength, ROM, and mobil ity.- Rehab Goal Patient has realistic goal of being discharged at assistance level 7-Ind to reside at Home with Fami ly/Relatives. 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.She elected for surgery, and on 07/24/2021 was admitted to [facility] for Amputa tion of Limb(Unilateral Lower Limb Below the Knee (BK)) by VILMA PHAM MD.MDM/PLAN: - Physical Therapy Gait dysfunction - to improve, our physical therapists will perform initial evaluation of pt's statu s upon admission and devise an individualized program for Gait Training, and Wheel Chair mobility Inability to transfer - to improve, our physical therapists will perform initial evaluation of pt's status upon admission and devise an individualized program for Bed mobility Need for home safety evaluation - to improve, our physical therapists will perform initial evaluatio n of pt's status upon admission and devise an individualized program for Home Evaluation Need in caregiver upon discharge - to improve, our physical therapists will perform initial evaluati on of pt's status upon admission and devise an individualized program for Caregiver Training New precaution - to improve, our physical therapists will perform initial evaluation of pt's status upon admission and devise an individualized program for Patient precaution education Poor balance - to improve, our physical therapists will perform initial evaluation of pt's status up on admission and devise an individualized program for Balance Training Poor endurance - to improve, our physical therapists will perform initial evaluation of pt's status upon admission and devise an individualized program for Endurance Training Weakness - to improve, our physical therapists will perform initial evaluation of pt's status upon a dmission and devise an individualized program for Aquatic Therapy, Neuromuscular Reeducation, and Str engthening Achieving independence - to improve, our physical therapists will perform initial evaluation of pt's status upon admission and devise an individualized program for Community Reintegration Activities - Occupational Therapy ADL deficits - to improve, our occupation therapists will perform initial evaluation of pt's status upon admission and devise an individualized program for Bathing, Bed mobility, Community Reintegratio n, Cooking, Dressing, Eating, Fine Motor Skills, Grooming, Homemaking, Kitchen Mobility, Laundry, Pat ient Education, Safety Awareness, Splinting - Positioning, Transfers(Toilet, Tub, Shower), and Wheel Chair Management Cognitive deficits - to improve, our occupation therapists will perform initial evaluation of pt's s tatus upon admission and devise an individualized program for Cognition - orientation Need for care companion - to improve, our occupation therapists will perform initial evaluation of pt's status upon admission and devise an individualized program for Caregiver Training Weakness - to improve, our occupation therapists will perform initial evaluation of pt's status upon admission and devise an individualized program for Aquatic Therapy, Balance, Endurance, UE ROM, and UE strengthening - Other See attached MAR (Medication Administration Record) - Diet Type Continue Regular - Diet - Liquid Texture Continue Regular - Tube Feed Continue N/A - Weight Bearing Precaution NWB right LE - Skin care per protocol - N/A Perform Consult Certified Prosthetic for prosthesis construction - Diet - Solid Texture Continue Regular - Shower allowing shower FUNCTIONAL STATUS: UPDATED AT WEEKLY TEAM CONFERENCE - Bladder Same accident frequency: 7-Ind - No accidents in the past 7 days - Bowel Same accident frequency: 7-Ind - No accidents in the past 7 days - Walking Same score based on distance walked: 0(N/A) - Wheelchair Same score based on distance traveled: 0(N/A) FUNCTIONAL STATUS: - Self-Care A. Eating Ind B. Grooming Beth C. Bathing modA D. Dressing - Upper modA E. Dressing - Lower Dolores F. Toileting Dolores - Sphincter Control G. Bladder control Beth H. Bowel control Beth - Transfers Control I. Bed/Chair/Wheelchair Dolores J. Toilet Dolores K. Tub/Shower modA - Locomotion L. Walk/Wheelchair (B) Dolores M. Stairs Dep - Communication N. Comprehension (B) Ind O. Expression (B) Ind - Social Cognition P. Social Interaction Ind Q. Problem Solving Beth R. Memory Ind - Endurance Fair - Balance Fair - Safety Awareness Fair QI SCORES: - Self-Care A. Eating 03-Partial/moderate assistance B. Oral hygiene 03-Partial/moderate assistance C. Toileting hygiene 03-Partial/moderate assistance E. Shower/bathe self 02-Substantial/maximal assistance F. Upper body dressing 03-Partial/moderate assistance G. Lower body dressing 02-Substantial/maximal assistance H. Putting on/taking off footwear 88-Not attempted due to medical condition or safety concerns - Mobility A. Roll left and right 03-Partial/moderate assistance B. Sit to lying 03-Partial/moderate assistance C. Lying to sitting on side of bed 03-Partial/moderate assistance D. Sit to stand 03-Partial/moderate assistance E. Chair/[id number] transfer 03-Partial/moderate assistance F. Toilet transfer 03-Partial/moderate assistance G. Car transfer 88-Not attempted due to medical condition or safety concerns I. Walk 10 feet 03-Partial/moderate assistance J. Walk 50 feet with two turns 88-Not attempted due to medical condition or safety concerns K. Walk 150 feet 88-Not attempted due to medical condition or safety concerns L. Walking 10 feet on uneven surfaces 88-Not attempted due to medical condition or safety concerns M. 1 step (curb) 88-Not attempted due to medical condition or safety concerns N. 4 steps 88-Not attempted due to medical condition or safety concerns O. 12 steps 88-Not attempted due to medical condition or safety concerns P. Picking up object 88-Not attempted due to medical condition or safety concerns R. Wheel 50 feet with two turns 88-Not attempted due to medical condition or safety concerns S. Wheel 150 feet 88-Not attempted due to medical condition or safety concerns - Bladder and Bowel Bladder continence Bowel continence - Endurance Fair - Balance Poor - Safety Awareness Fair [facility]RENT [facility]. DEFICITS: Self-Care, Mobility, Endurance, Balance, and Safety Awareness SIGNATURE PANEL: (CDT)
[2021-08-03] MEDS: GABAPENTIN 100 MG CAP PO SCH (19:31)
[2021-08-03] MEDS: ATORVASTATIN 20 MG TAB PO SCH (19:31)
[2021-08-03] MEDS: BIMATOPROST EYE OPTH SCH (19:32)
[2021-08-03] MEDS: Levemir Flextouch SQ SCH (20:00)
[2021-08-04] MEDS: INSULIN -REGULAR HUMAN 50 UNIT/0.5 ML ML SQ SCH ×4 (07:30→20:03)
[2021-08-04] MEDS: PANTOPRAZOLE 40MG TABLET PO SCH (07:36)
[2021-08-04] MEDS: ENOXAPARIN 30 MG/0.3 ML SQ SCH (07:36)
[2021-08-04] MEDS: Levemir Flextouch SQ SCH ×3 (08:00→20:00)
[2021-08-04] MEDS: ASPIRIN 81 MG CHEWABLE TABLET PO SCH (08:08)
[2021-08-04] MEDS: FERROUS SULFATE 325 MG TAB PO SCH (08:08)
[2021-08-04] MEDS: FE SULF/FA/VIT B COMP & C TAB PO SCH (08:08)
[2021-08-04] MEDS: lisinopriL 5 MG TAB PO SCH (08:08)
[2021-08-04] MEDS: GLUCERNA SHAKE 237 ML CAN PO SCH ×2 (08:09→20:02)
[2021-08-04] MEDS: MAGNESIUM OXIDE 400 MG TAB PO SCH ×2 (08:09→20:01)
[2021-08-04] MEDS: ATORVASTATIN 20 MG TAB PO SCH (20:02)
[2021-08-04] MEDS: GABAPENTIN 100 MG CAP PO SCH (20:02)
[2021-08-04] MEDS: BIMATOPROST EYE OPTH SCH (20:02)
[2021-08-05] MEDS: FE SULF/FA/VIT B COMP & C TAB PO SCH (07:12)
[2021-08-05] MEDS: PANTOPRAZOLE 40MG TABLET PO SCH (07:12)
[2021-08-05] MEDS: ENOXAPARIN 30 MG/0.3 ML SQ SCH (07:12)
[2021-08-05] MEDS: FERROUS SULFATE 325 MG TAB PO SCH (07:12)
[2021-08-05] MEDS: lisinopriL 5 MG TAB PO SCH (07:12)
[2021-08-05] MEDS: MAGNESIUM OXIDE 400 MG TAB PO SCH ×2 (07:12→19:52)
[2021-08-05] MEDS: ASPIRIN 81 MG CHEWABLE TABLET PO SCH (07:12)
[2021-08-05] MEDS: GLUCERNA SHAKE 237 ML CAN PO SCH ×2 (08:48→19:53)
[2021-08-05] MEDS: Levemir Flextouch SQ SCH (08:54)
[2021-08-05] MEDS: INSULIN -REGULAR HUMAN 50 UNIT/0.5 ML ML SQ SCH ×4 (09:25→19:55)
--- NOTE | 2021-08-05 18:31 | R.PN ---
PROGRESS NOTES ENCOUNTER DATE AND TIME: 08/05/2021 18:27 (CDT) NAME MUNA ROSSI DATE OF : 1950 DATE OF ADMISSION: 07/28/2021 20:15 (CDT) Right Transtibial AmputationCHIEF COMPLAINT: Right BKA, debility SUBJECTIVE: Pt denied any Shortness of Breath. Pt denied any depression. WBC 9.0, Hgb 8.2, hemocyte plus and ferrous sulfate started. Glucose 217 to 307, and HgA1c 10.1, Leve alyson Flextouch 12 units sq bid. Prealbumin 14.1. Self-propelled wheelchair 250' with supervision. VITAL SIGNS Temperature: 97.3 F SBP/DBP: 139/65 Pulse: 84 Resp: 16 MEDICATION ALLERGIES: No Known Drug Allergies (NKDA) ENVIRONMENTAL ALLERGIES: - Substance Allergies None Known - Other Allergies None Known CONSULT: Perform Consult Certified Prosthetic for prosthesis construction NURSING: - Shower allowing shower - Skin care per protocol PRECAUTIONS: - Weight Bearing Precaution NWB right LE ACTIVITIES OOB only with supervision THERAPIES: - Orthotics/Prosthetics Prosthetic Evaluation. - Dietary and Nutrition Adequate Nutrition. Nutritional Education. Nutritional Supplements. Evaluate and Treat. - Occupational Therapy Cognitive Retraining. Patient needs Occupational Therapy for a daily minimum of 1.5 hours at least 5 out of 7 days, to improve Activities of Daily Living, including: Eating, Grooming, Bathing, Dressing, Toileting, Toilet Transfers, Community Reintegration, Higher functional activities, Adaptive Equipme nt, Splinting, Household Tasks, and Other activities as determined. Visual Perceptual Training. Evalu ate and Treat. Adaptive Equipment. ADL Training. Patient/Family Education. Transfer Training. - Speech Therapy Cognitive Training. Expressive Language Skills. Memory Strategies. Patient needs Speech Therapy for a daily minimum of 1.5 hours at least 5 out of 7 days, to improve: Swallowing, Cognition, Language Ski lls, and Compensatory Strategies. Receptive Language Skills. Speech Intelligibility Training. Evaluat e and Treat. - Physical Therapy Patient needs Physical Therapy for a daily minimum of 1.5 hours at least 5 out of 7 days, to improve: Mobility, Strengthening, Transfers, Stretching, ROM, Endurance, Ability to manage stairs, Gait, and Balance. Balance Training. Evaluate and Treat. Gait Training. LE ROM. Medical Equipment Assessment an d Evaluation. Patient/Family Education. Safety Awareness. Transfer Training. PHYSICAL EXAM - Gen Alert and awake Lying in bed No apparent distress Oriented to: person, time, and place - Skin Right BKA bandage in place with good hemostasis. Normacephalic - Eyes No abnormalities - ENMT No abnormalities - Neck No abnormalities - CVS RRR - Chest No abnormalities - Abd Soft - GI + bowel sounds Deferred - No abnormalities - Ext Right BKA stump with good hemostasis. - MSK No focal deficits, mild diffuse weakness - Neuro No focal deficits - Psych No abnormalities ASSESSMENT: Pt. is a 70 yo female of unknown race.Pre-morbidly, Pt. was independent/mod-I in Locomotion, Safety A wareness, Social Cognition, and Balance; and she had good Transfers Control, Sphincter Control, Commu nication, Self-Care, and Endurance.Currently, she has deficits of Locomotion, Safety Awareness, Socia l Cognition, Transfers Control, Balance, Sphincter Control, Self-Care, Communication, and Endurance.Judy andrews is now referred to [facility] for acute in-patient rehabilitation in order to maximize patient's functional independence in activities of daily living, strength, ROM, and mobil ity.- Rehab Goal Patient has realistic goal of being discharged at assistance level 7-Ind to reside at Home with Fami ly/Relatives. 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.She elected for surgery, and on 07/24/2021 was admitted to [facility] for Amputa tion of Limb(Unilateral Lower Limb Below the Knee (BK)) by VILMA PHAM MD.MDM/PLAN: - Physical Therapy Gait dysfunction - to improve, our physical therapists will perform initial evaluation of pt's statu s upon admission and devise an individualized program for Gait Training, and Wheel Chair mobility Inability to transfer - to improve, our physical therapists will perform initial evaluation of pt's status upon admission and devise an individualized program for Bed mobility Need for home safety evaluation - to improve, our physical therapists will perform initial evaluatio n of pt's status upon admission and devise an individualized program for Home Evaluation Need in caregiver upon discharge - to improve, our physical therapists will perform initial evaluati on of pt's status upon admission and devise an individualized program for Caregiver Training New precaution - to improve, our physical therapists will perform initial evaluation of pt's status upon admission and devise an individualized program for Patient precaution education Poor balance - to improve, our physical therapists will perform initial evaluation of pt's status up on admission and devise an individualized program for Balance Training Poor endurance - to improve, our physical therapists will perform initial evaluation of pt's status upon admission and devise an individualized program for Endurance Training Weakness - to improve, our physical therapists will perform initial evaluation of pt's status upon a dmission and devise an individualized program for Aquatic Therapy, Neuromuscular Reeducation, and Str engthening Achieving independence - to improve, our physical therapists will perform initial evaluation of pt's status upon admission and devise an individualized program for Community Reintegration Activities - Occupational Therapy ADL deficits - to improve, our occupation therapists will perform initial evaluation of pt's status upon admission and devise an individualized program for Bathing, Bed mobility, Community Reintegratio n, Cooking, Dressing, Eating, Fine Motor Skills, Grooming, Homemaking, Kitchen Mobility, Laundry, Pat ient Education, Safety Awareness, Splinting - Positioning, Transfers(Toilet, Tub, Shower), and Wheel Chair Management Cognitive deficits - to improve, our occupation therapists will perform initial evaluation of pt's s tatus upon admission and devise an individualized program for Cognition - orientation Need for care associate - to improve, our occupation therapists will perform initial evaluation of pt's status upon admission and devise an individualized program for Caregiver Training Weakness - to improve, our occupation therapists will perform initial evaluation of pt's status upon admission and devise an individualized program for Aquatic Therapy, Balance, Endurance, UE ROM, and UE strengthening - Other See attached MAR (Medication Administration Record) - Diet Type Continue Regular - Diet - Liquid Texture Continue Regular - Tube Feed Continue N/A - Weight Bearing Precaution NWB right LE - Skin care per protocol - N/A Perform Consult Certified Prosthetic for prosthesis construction - Diet - Solid Texture Continue Regular - Shower allowing shower FUNCTIONAL STATUS: UPDATED AT WEEKLY TEAM CONFERENCE - Bladder Same accident frequency: 7-Ind - No accidents in the past 7 days - Bowel Same accident frequency: 7-Ind - No accidents in the past 7 days - Walking Same score based on distance walked: 0(N/A) - Wheelchair Same score based on distance traveled: 0(N/A) FUNCTIONAL STATUS: - Self-Care A. Eating Ind B. Grooming Beth C. Bathing modA D. Dressing - Upper modA E. Dressing - Lower Dolores F. Toileting Dolores - Sphincter Control G. Bladder control Beth H. Bowel control Beth - Transfers Control I. Bed/Chair/Wheelchair Dolores J. Toilet Dolores K. Tub/Shower modA - Locomotion L. Walk/Wheelchair (B) Dolores M. Stairs Dep - Communication N. Comprehension (B) Ind O. Expression (B) Ind - Social Cognition P. Social Interaction Ind Q. Problem Solving Beth R. Memory Ind - Endurance Fair - Balance Fair - Safety Awareness Fair QI SCORES: - Self-Care A. Eating 03-Partial/moderate assistance B. Oral hygiene 03-Partial/moderate assistance C. Toileting hygiene 03-Partial/moderate assistance E. Shower/bathe self 02-Substantial/maximal assistance F. Upper body dressing 03-Partial/moderate assistance G. Lower body dressing 02-Substantial/maximal assistance H. Putting on/taking off footwear 88-Not attempted due to medical condition or safety concerns - Mobility A. Roll left and right 03-Partial/moderate assistance B. Sit to lying 03-Partial/moderate assistance C. Lying to sitting on side of bed 03-Partial/moderate assistance D. Sit to stand 03-Partial/moderate assistance E. Chair/[id number] transfer 03-Partial/moderate assistance F. Toilet transfer 03-Partial/moderate assistance G. Car transfer 88-Not attempted due to medical condition or safety concerns I. Walk 10 feet 03-Partial/moderate assistance J. Walk 50 feet with two turns 88-Not attempted due to medical condition or safety concerns K. Walk 150 feet 88-Not attempted due to medical condition or safety concerns L. Walking 10 feet on uneven surfaces 88-Not attempted due to medical condition or safety concerns M. 1 step (curb) 88-Not attempted due to medical condition or safety concerns N. 4 steps 88-Not attempted due to medical condition or safety concerns O. 12 steps 88-Not attempted due to medical condition or safety concerns P. Picking up object 88-Not attempted due to medical condition or safety concerns R. Wheel 50 feet with two turns 88-Not attempted due to medical condition or safety concerns S. Wheel 150 feet 88-Not attempted due to medical condition or safety concerns - Bladder and Bowel Bladder continence Bowel continence - Endurance Fair - Balance Poor - Safety Awareness Fair CURRENT [facility]. DEFICITS: Self-Care, Mobility, Endurance, Balance, and Safety Awareness SIGNATURE PANEL: (CDT)
[2021-08-05] MEDS: GABAPENTIN 100 MG CAP PO SCH (19:52)
[2021-08-05] MEDS: ATORVASTATIN 20 MG TAB PO SCH (19:53)
[2021-08-05] MEDS: [UNRECOGNIZED DRUG - OTHER] SQ SCH (19:55)
[2021-08-05] MEDS: BIMATOPROST EYE OPTH SCH (19:55)
[2021-08-05] MEDS: INSULIN DETEMIR SQ SCH (19:55)
[2021-08-06] MEDS: lisinopriL 5 MG TAB PO SCH (06:55)
[2021-08-06] MEDS: ASPIRIN 81 MG CHEWABLE TABLET PO SCH (06:55)
[2021-08-06] MEDS: PANTOPRAZOLE 40MG TABLET PO SCH (06:56)
[2021-08-06] MEDS: ENOXAPARIN 30 MG/0.3 ML SQ SCH (07:26)
[2021-08-06] MEDS: INSULIN -REGULAR HUMAN 50 UNIT/0.5 ML ML SQ SCH ×4 (07:30→20:04)
[2021-08-06] MEDS ORDERED: LEVEMIR 15 UNIT SQ SCH (08:00)
[2021-08-06] MEDS: FERROUS SULFATE 325 MG TAB PO SCH (08:05)
[2021-08-06] MEDS: FE SULF/FA/VIT B COMP & C TAB PO SCH (08:05)
[2021-08-06] MEDS: MAGNESIUM OXIDE 400 MG TAB PO SCH ×2 (08:05→20:03)
[2021-08-06] MEDS: GLUCERNA SHAKE 237 ML CAN PO SCH ×2 (08:06→20:04)
--- NOTE | 2021-08-06 17:27 | R.PN ---
PROGRESS NOTES ENCOUNTER DATE AND TIME: 08/06/2021 11:12 (CDT) NAME MUNA ROSSI DATE OF : 1950 DATE OF ADMISSION: 07/28/2021 20:15 (CDT) Right Transtibial AmputationCHIEF COMPLAINT: Right BKA, debility SUBJECTIVE: Pt denied any Shortness of Breath. Pt denied any depression. WBC 9.0, Hgb 8.2, hemocyte plus and ferrous sulfate started. Glucose 186 to 392, and HgA1c 10.1, Leve alyson Flextouch 16 units sq in AM and 12 units sq in PM. Prealbumin 14.1. Self-propelled wheelchair 250' with supervision. Up and down 15 steps with minimum assistance using b ilateral handrails. Ambulated 500' with rolling walker and contact guard assistance. VITAL SIGNS Temperature: 97.8 F SBP/DBP: 154/74 Pulse: 95 Resp: 15 MEDICATION ALLERGIES: No Known Drug Allergies (NKDA) ENVIRONMENTAL ALLERGIES: - Substance Allergies None Known - Other Allergies None Known CONSULT: Perform Consult Certified Prosthetic for prosthesis construction NURSING: - Shower allowing shower - Skin care per protocol PRECAUTIONS: - Weight Bearing Precaution NWB right LE ACTIVITIES OOB only with supervision THERAPIES: - Orthotics/Prosthetics Prosthetic Evaluation. - Dietary and Nutrition Adequate Nutrition. Nutritional Education. Nutritional Supplements. Evaluate and Treat. - Occupational Therapy Cognitive Retraining. Patient needs Occupational Therapy for a daily minimum of 1.5 hours at least 5 out of 7 days, to improve Activities of Daily Living, including: Eating, Grooming, Bathing, Dressing, Toileting, Toilet Transfers, Community Reintegration, Higher functional activities, Adaptive Equipme nt, Splinting, Household Tasks, and Other activities as determined. Visual Perceptual Training. Evalu ate and Treat. Adaptive Equipment. ADL Training. Patient/Family Education. Transfer Training. - Speech Therapy Cognitive Training. Expressive Language Skills. Memory Strategies. Patient needs Speech Therapy for a daily minimum of 1.5 hours at least 5 out of 7 days, to improve: Swallowing, Cognition, Language Ski lls, and Compensatory Strategies. Receptive Language Skills. Speech Intelligibility Training. Evaluat e and Treat. - Physical Therapy Patient needs Physical Therapy for a daily minimum of 1.5 hours at least 5 out of 7 days, to improve: Mobility, Strengthening, Transfers, Stretching, ROM, Endurance, Ability to manage stairs, Gait, and Balance. Balance Training. Evaluate and Treat. Gait Training. LE ROM. Medical Equipment Assessment an d Evaluation. Patient/Family Education. Safety Awareness. Transfer Training. PHYSICAL EXAM - Gen Alert and awake Lying in bed No apparent distress Oriented to: person, time, and place - Skin Right BKA bandage in place with good hemostasis. Normacephalic - Eyes No abnormalities - ENMT No abnormalities - Neck No abnormalities - CVS RRR - Chest No abnormalities - Abd Soft - GI + bowel sounds Deferred - No abnormalities - Ext Right BKA stump with good hemostasis. - MSK No focal deficits, mild diffuse weakness - Neuro No focal deficits - Psych No abnormalities ASSESSMENT: Pt. is a 70 yo female of unknown race.Pre-morbidly, Pt. was independent/mod-I in Locomotion, Safety A wareness, Social Cognition, and Balance; and she had good Transfers Control, Sphincter Control, Commu nication, Self-Care, and Endurance.Currently, she has deficits of Locomotion, Safety Awareness, Socia l Cognition, Transfers Control, Balance, Sphincter Control, Self-Care, Communication, and Endurance.P t. is now referred to [facility] for acute in-patient rehabilitation in order to maximize patient's functional independence in activities of daily living, strength, ROM, and mobil ity.- Rehab Goal Patient has realistic goal of being discharged at assistance level 7-Ind to reside at Home with Fami ly/Relatives. 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.She elected for surgery, and on 07/24/2021 was admitted to [facility] for Amputa tion of Limb(Unilateral Lower Limb Below the Knee (BK)) by VILMA PHAM MD.MDM/PLAN: - Physical Therapy Gait dysfunction - to improve, our physical therapists will perform initial evaluation of pt's statu s upon admission and devise an individualized program for Gait Training, and Wheel Chair mobility Inability to transfer - to improve, our physical therapists will perform initial evaluation of pt's status upon admission and devise an individualized program for Bed mobility Need for home safety evaluation - to improve, our physical therapists will perform initial evaluatio n of pt's status upon admission and devise an individualized program for Home Evaluation Need in caregiver upon discharge - to improve, our physical therapists will perform initial evaluati on of pt's status upon admission and devise an individualized program for Caregiver Training New precaution - to improve, our physical therapists will perform initial evaluation of pt's status upon admission and devise an individualized program for Patient precaution education Poor balance - to improve, our physical therapists will perform initial evaluation of pt's status up on admission and devise an individualized program for Balance Training Poor endurance - to improve, our physical therapists will perform initial evaluation of pt's status upon admission and devise an individualized program for Endurance Training Weakness - to improve, our physical therapists will perform initial evaluation of pt's status upon a dmission and devise an individualized program for Aquatic Therapy, Neuromuscular Reeducation, and Str engthening Achieving independence - to improve, our physical therapists will perform initial evaluation of pt's status upon admission and devise an individualized program for Community Reintegration Activities - Occupational Therapy ADL deficits - to improve, our occupation therapists will perform initial evaluation of pt's status upon admission and devise an individualized program for Bathing, Bed mobility, Community Reintegratio n, Cooking, Dressing, Eating, Fine Motor Skills, Grooming, Homemaking, Kitchen Mobility, Laundry, Pat ient Education, Safety Awareness, Splinting - Positioning, Transfers(Toilet, Tub, Shower), and Wheel Chair Management Cognitive deficits - to improve, our occupation therapists will perform initial evaluation of pt's s tatus upon admission and devise an individualized program for Cognition - orientation Need for care assistant - to improve, our occupation therapists will perform initial evaluation of pt's status upon admission and devise an individualized program for Caregiver Training Weakness - to improve, our occupation therapists will perform initial evaluation of pt's status upon admission and devise an individualized program for Aquatic Therapy, Balance, Endurance, UE ROM, and UE strengthening - Other See attached MAR (Medication Administration Record) - Diet Type Continue Regular - Diet - Liquid Texture Continue Regular - Tube Feed Continue N/A - Weight Bearing Precaution NWB right LE - Skin care per protocol - N/A Perform Consult Certified Prosthetic for prosthesis construction - Diet - Solid Texture Continue Regular - Shower allowing shower FUNCTIONAL STATUS: UPDATED AT WEEKLY TEAM CONFERENCE - Bladder Same accident frequency: 7-Ind - No accidents in the past 7 days - Bowel Same accident frequency: 7-Ind - No accidents in the past 7 days - Walking Same score based on distance walked: 0(N/A) - Wheelchair Same score based on distance traveled: 0(N/A) FUNCTIONAL STATUS: - Self-Care A. Eating Ind B. Grooming Beth C. Bathing modA D. Dressing - Upper modA E. Dressing - Lower Dolores F. Toileting Dolores - Sphincter Control G. Bladder control Beth H. Bowel control Beth - Transfers Control I. Bed/Chair/Wheelchair Dolores J. Toilet Dolores K. Tub/Shower modA - Locomotion L. Walk/Wheelchair (B) Dolores M. Stairs Dep - Communication N. Comprehension (B) Ind O. Expression (B) Ind - Social Cognition P. Social Interaction Ind Q. Problem Solving Bteh R. Memory Ind - Endurance Fair - Balance Fair - Safety Awareness Fair QI SCORES: - Self-Care A. Eating 03-Partial/moderate assistance B. Oral hygiene 03-Partial/moderate assistance C. Toileting hygiene 03-Partial/moderate assistance E. Shower/bathe self 02-Substantial/maximal assistance F. Upper body dressing 03-Partial/moderate assistance G. Lower body dressing 02-Substantial/maximal assistance H. Putting on/taking off footwear 88-Not attempted due to medical condition or safety concerns - Mobility A. Roll left and right 03-Partial/moderate assistance B. Sit to lying 03-Partial/moderate assistance C. Lying to sitting on side of bed 03-Partial/moderate assistance D. Sit to stand 03-Partial/moderate assistance E. Chair/mda-rp-lhoao transfer 03-Partial/moderate assistance F. Toilet transfer 03-Partial/moderate assistance G. Car transfer 88-Not attempted due to medical condition or safety concerns I. Walk 10 feet 03-Partial/moderate assistance J. Walk 50 feet with two turns 88-Not attempted due to medical condition or safety concerns K. Walk 150 feet 88-Not attempted due to medical condition or safety concerns L. Walking 10 feet on uneven surfaces 88-Not attempted due to medical condition or safety concerns M. 1 step (curb) 88-Not attempted due to medical condition or safety concerns N. 4 steps 88-Not attempted due to medical condition or safety concerns O. 12 steps 88-Not attempted due to medical condition or safety concerns P. Picking up object 88-Not attempted due to medical condition or safety concerns R. Wheel 50 feet with two turns 88-Not attempted due to medical condition or safety concerns S. Wheel 150 feet 88-Not attempted due to medical condition or safety concerns - Bladder and Bowel Bladder continence Bowel continence - Endurance Fair - Balance Poor - Safety Awareness Fair CURRENT [facility]. DEFICITS: Self-Care, Mobility, Endurance, Balance, and Safety Awareness SIGNATURE PANEL: (CDT)
[2021-08-06] MEDS: BIMATOPROST EYE OPTH SCH (20:03)
[2021-08-06] MEDS: GABAPENTIN 100 MG CAP PO SCH (20:03)
[2021-08-06] MEDS: [UNRECOGNIZED DRUG - OTHER] SQ SCH (20:03)
[2021-08-06] MEDS: ATORVASTATIN 20 MG TAB PO SCH (20:03)
[2021-08-06] MEDS: INSULIN DETEMIR SQ SCH (20:03)
[2021-08-07 04:37] LABS: Absolute Lymphocytes (CBC) 1.7 K/uL (0.7-4.9); Hematocrit 23.7 % (36.0-45.0); MCV 74.6 fL (80-100); MPV 8.5 fL (7.6-11.3); RBC Red Blood Cell Count 3.18 M/uL (3.86-4.86)
[2021-08-07 05:08] LABS: Albumin 2.6 g/dL (3.4-5.0); Magnesium 2.6 mg/dL (1.8-2.4); Potassium 5.4 mmol/L (3.5-5.1); Prealbumin 20.6 mg/dL (20-40)
[2021-08-07] MEDS: PANTOPRAZOLE 40MG TABLET PO SCH (06:58)
[2021-08-07] MEDS: INSULIN -REGULAR HUMAN 50 UNIT/0.5 ML ML SQ SCH ×4 (07:30→20:19)
[2021-08-07] MEDS: ENOXAPARIN 30 MG/0.3 ML SQ SCH (07:56)
[2021-08-07] MEDS: GLUCERNA SHAKE 237 ML CAN PO SCH ×2 (07:56→20:19)
[2021-08-07] MEDS: lisinopriL 5 MG TAB PO SCH (07:56)
[2021-08-07] MEDS: FE SULF/FA/VIT B COMP & C TAB PO SCH (07:57)
[2021-08-07] MEDS: ASPIRIN 81 MG CHEWABLE TABLET PO SCH (07:57)
[2021-08-07] MEDS: FERROUS SULFATE 325 MG TAB PO SCH (07:57)
[2021-08-07] MEDS: MAGNESIUM OXIDE 400 MG TAB PO SCH ×2 (07:57→20:19)
[2021-08-07] MEDS: LEVEMIR SQ SCH (08:39)
--- NOTE | 2021-08-07 09:55 | P.RH.PN ---
Estimated Length of Stay: 11 Expected Discharge Date: 08/13/21 Discharge Disposition Plan: Home Family Support: Yes Half-Way Goal: Mobility, Transfers, Self Care Vital Signs: Last Vital Signs Temp 97.5 F 08/07/21 08:27 Pulse 81 08/07/21 08:27 Resp 16 08/07/21 08:27 BP 114/52 L 08/07/21 08:27 Pulse Ox 100 08/07/21 08:27 Laboratory: Laboratory Last Values WBC 9.5 K/uL (4.3-10.9) 08/07/21 04:13 RBC 3.18 M/uL (3.86-4.86) L 08/07/21 04:13 Hgb 7.8 g/dL (12.0-15.0) L 08/07/21 04:13 Hct 23.7 % (36.0-45.0) L 08/07/21 04:13 MCV 74.6 fL (80-100) L 08/07/21 04:13 MCH 24.5 pg (27.0-35.0) L 08/07/21 04:13 MCHC 32.9 g/dL (32.0-36.0) 08/07/21 04:13 RDW 15.2 % (12.1-15.2) 08/07/21 04:13 Plt Count 386 K/uL (152-406) 08/07/21 04:13 MPV 8.5 fL (7.6-11.3) 08/07/21 04:13 Neutrophils % 71.6 % (41.7-73.7) 08/07/21 04:13 Lymphocytes % 18.0 % (15.3-44.8) 08/07/21 04:13 Monocytes % 6.7 % (3.3-12.3) 08/07/21 04:13 Eosinophils % 2.8 % (0-4.4) 08/07/21 04:13 Basophils % 0.9 % (0-1.3) 08/07/21 04:13 Absolute Neutrophils 6.8 K/uL (1.8-8.0) 08/07/21 04:13 Segmented Neutrophils 70 % (40-80) 07/29/21 04:04 Absolute Lymphocytes 1.7 K/uL (0.7-4.9) 08/07/21 04:13 Lymphocytes 20 % (15-42) 07/29/21 04:04 Monocytes 7 % (0-10) 07/29/21 04:04 Absolute Monocytes 0.6 K/uL (0.1-1.3) 08/07/21 04:13 Eosinophils 1 % (0-3) 07/29/21 04:04 Absolute Eosinophils 0.3 K/uL (0-0.5) 08/07/21 04:13 Absolute Basophils 0.1 K/uL (0-0.5) 08/07/21 04:13 Metamyelocytes 2 % (0-0) H 07/29/21 04:04 Platelet Estimate Incr 07/29/21 04:04 Microcytosis 1+ 07/29/21 04:04 Morphology Comment Noted (NOT SEEN) 07/29/21 04:04 Sodium 138 mmol/L (136-145) 08/07/21 04:13 Potassium 5.4 mmol/L (3.5-5.1) H 08/07/21 04:13 Chloride 106 mmol/L (98-107) 08/07/21 04:13 Carbon Dioxide 29 mmol/L (21-32) 08/07/21 04:13 Anion Gap 8.4 mEq/L (5.0-15.0) 08/07/21 04:13 BUN 43 mg/dL (7-18) H 08/07/21 04:13 Creatinine 0.92 mg/dL (0.55-1.3) 08/07/21 04:13 Est GFR (CKD-EPI) 68 ml/min (=/>90) L 08/07/21 04:13 Glucose 94 mg/dL (74-106) 08/07/21 04:13 POC Glucose 92 mg/dL (65-120) 08/07/21 07:56 Hemoglobin A1c 10.1 % (4.2-6.3) H 07/29/21 04:04 Calcium 8.8 mg/dL (8.5-10.1) 08/07/21 04:13 Magnesium 2.6 mg/dL (1.8-2.4) H D 08/07/21 04:13 Albumin 2.6 g/dL (3.4-5.0) L 08/07/21 04:13 Prealbumin 20.6 mg/dL (20-40) 08/07/21 04:13 Urine Color Yellow (Yellow) 07/29/21 00:30 Urine Appearance Clear (Clear) 07/29/21 00:30 Urine pH 5.5 (5.0-7.0) 07/29/21 00:30 Ur Specific [place] 1.020 (1.005-1.030) 07/29/21 00:30 Glucose (UA)(Auto) 2+ (Negative) H 07/29/21 00:30 Urine Ketones Negative (Negative) 07/29/21 00:30 Urine Blood Negative (Negative) 07/29/21 00:30 Urine Nitrite Negative (Negative) 07/29/21 00:30 Urine Bilirubin Negative (Negative) 07/29/21 00:30 Urine Urobilinogen 0.2 mg/dL (0.2-1.0) 07/29/21 00:30 Ur Leukocyte Esterase Negative (Negative) 07/29/21 00:30 Urine RBC <5 /HPF (NONE SEEN) 07/29/21 00:30 Urine WBC None seen /HPF (<5) 07/29/21 00:30 Ur Squamous Epith Cells <5 /HPF (NONE SEEN) 07/29/21 00:30 Ur Urothelial Cells Cancelled 07/29/21 00:15 Calcium Oxalate Crystal Cancelled 07/29/21 00:15 Uric Acid Crystals Cancelled 07/29/21 00:15 Triple Phos Crystals Cancelled 07/29/21 00:15 Other Crystals Cancelled 07/29/21 00:15 Amorphous Sediment Cancelled 07/29/21 00:15 Glitter Cells Cancelled 07/29/21 00:15 Urine Bacteria None seen /HPF (<20) 07/29/21 00:30 Hyaline Casts Cancelled 07/29/21 00:15 Fine Granular Casts Cancelled 07/29/21 00:15 Coarse Granular Casts Cancelled 07/29/21 00:15 Waxy Casts Cancelled 07/29/21 00:15 RBC Casts Cancelled 07/29/21 00:15 WBC Casts Cancelled 07/29/21 00:15 Urine Mucus Cancelled 07/29/21 00:15 Urine Other Cancelled 07/29/21 00:15 Urine Trichomonas Cancelled 07/29/21 00:15 Urine Yeast Cancelled 07/29/21 00:15 Ur Yeast w Hyphae Cancelled 07/29/21 00:15 Urine Yeast (Budding) Cancelled 07/29/21 00:15 Urine Sperm Cancelled 07/29/21 00:15 Urine Culture Reflexed Not needed 07/29/21 00:30 Urine Total Volume Cancelled 07/29/21 00:15 Urine Total Protein Trace (Negative) H 07/29/21 00:30 SARS-CoV-2 Rap RNA(RT-PCR) Negative (NEGATIVE) 08/06/21 07:00 Weight: 87 lb Wound Present: No Closed Surgical Incision Present: No Negative Pressure Wound Therapy Present: No Physician Update: Labs reviewed. Independent grooming, upper body dressing , foot wear, minimum assistance for bathing and lower body dressing. Walking 750' with CGA, 15 steps with CGA, independent wheelchair. Blood sugars show massive swings. Functional Improvement: Patient continues progress toward reaching short-term and long-term goals. Patient presents w/ great attitude toward therapy, and good overall work ethic. Summary: Patient's care plan and skilled nursing goals have been reviewed and revised as necessary. Please see the Rehabilitation Signature page for all necessary signatures.
[2021-08-07] MEDS: BIMATOPROST EYE OPTH SCH (20:18)
[2021-08-07] MEDS: INSULIN DETEMIR SQ SCH (20:18)
[2021-08-07] MEDS: [UNRECOGNIZED DRUG - OTHER] SQ SCH (20:18)
[2021-08-07] MEDS: ATORVASTATIN 20 MG TAB PO SCH (20:19)
[2021-08-07] MEDS: GABAPENTIN 100 MG CAP PO SCH (20:19)
[2021-08-08] MEDS: PANTOPRAZOLE 40MG TABLET PO SCH (07:19)
[2021-08-08] MEDS: INSULIN -REGULAR HUMAN 50 UNIT/0.5 ML ML SQ SCH ×4 (07:30→20:17)
[2021-08-08] MEDS: ASPIRIN 81 MG CHEWABLE TABLET PO SCH (07:53)
[2021-08-08] MEDS: FERROUS SULFATE 325 MG TAB PO SCH (07:53)
[2021-08-08] MEDS: GLUCERNA SHAKE 237 ML CAN PO SCH ×2 (07:53→19:34)
[2021-08-08] MEDS: lisinopriL 5 MG TAB PO SCH (07:53)
[2021-08-08] MEDS: FE SULF/FA/VIT B COMP & C TAB PO SCH (07:53)
[2021-08-08] MEDS: LEVEMIR SQ SCH (07:54)
[2021-08-08] MEDS: MAGNESIUM OXIDE 400 MG TAB PO SCH ×2 (07:54→19:33)
[2021-08-08] MEDS: ENOXAPARIN 30 MG/0.3 ML SQ SCH (07:55)
[2021-08-08] MEDS ORDERED: NA CHLORIDE 0.9% 500 ML IV SCH (10:00)
[2021-08-08] MEDS ORDERED: INSULIN -REGULAR HUMAN 50 UNIT/0.5 ML ML SQ ONE (18:00)
[2021-08-08] MEDS ORDERED: D10W 250 ML BAG IV ONE (18:00)
[2021-08-08] MEDS ORDERED: SOD POLYSTYREN SUL 15 GM/60 ML UCUP PO ONE (18:00)
[2021-08-08] MEDS: NA CHLORIDE 0.9% 1,000 ML IV SCH (19:32)
[2021-08-08] MEDS: ATORVASTATIN 20 MG TAB PO SCH (19:33)
[2021-08-08] MEDS: BIMATOPROST EYE OPTH SCH (19:33)
[2021-08-08] MEDS: GABAPENTIN 100 MG CAP PO SCH (19:33)
[2021-08-08] MEDS: INSULIN DETEMIR SQ SCH (20:18)
[2021-08-08] MEDS: [UNRECOGNIZED DRUG - OTHER] SQ SCH (20:18)
[2021-08-09] MEDS: INSULIN -REGULAR HUMAN 50 UNIT/0.5 ML ML SQ SCH ×2 (07:30→11:30)
[2021-08-09 07:37] VITALS: BP 127/60; TEMP 97.3
[2021-08-09] MEDS: GLUCERNA SHAKE 237 ML CAN PO SCH (08:00)
[2021-08-09] MEDS: NA CHLORIDE 0.9% 1,000 ML IV SCH (09:05)
[2021-08-09] MEDS: ENOXAPARIN 30 MG/0.3 ML SQ SCH (09:06)
[2021-08-09] MEDS: ASPIRIN 81 MG CHEWABLE TABLET PO SCH (09:06)
[2021-08-09] MEDS: FE SULF/FA/VIT B COMP & C TAB PO SCH (09:06)
[2021-08-09] MEDS: FERROUS SULFATE 325 MG TAB PO SCH (09:07)
[2021-08-09] MEDS: MAGNESIUM OXIDE 400 MG TAB PO SCH (09:07)
[2021-08-09] MEDS: PANTOPRAZOLE 40MG TABLET PO SCH (09:07)
[2021-08-09] MEDS: LEVEMIR SQ SCH (09:10)
[2021-08-09 12:54] LABS: Potassium 4.4 mmol/L (3.5-5.1)
--- NOTE | 2021-08-09 17:32 | R.DS ---
DISCHARGE SUMMARY FACILITY [facility] MR# [id number] NAME MUNA ROSSI ADDRESS [address] [place] [address] DR PEDRAZA Z[place]EN[place]ver ZIP [address] PHONE DATE OF 1950 AGE 70 SSN# [id number] GENDER Female DEXTERITY Unknown dexterity MARITAL STATUS Unknown race ENCOUNTER PHYSICIAN Dr. Shey Silva REFERRING DOCTOR VILMA PHAM MD REFERRING FACILITY [facility] DISCHARGE DIAGNOSIS: - Amputation of Limb 05 - Unilateral Lower Limb Below the Knee (BK) (05.4) Right Transtibial Amputation. DATE OF ADMISSION 07/28/2021 20:15 (CDT) MEDICATION ALLERGIES: No Known Drug Allergies (NKDA) ENVIRONMENTAL ALLERGIES: - Substance Allergies None Known - Other Allergies None Known DISCHARGE MEDICATIONS: Other- ContinueSee attached MAR (Medication Administration Record). CONSULT: Perform Consult Certified Prosthetic for prosthesis construction NURSING: - Shower allowing shower - Skin care per protocol PRECAUTIONS: - Weight Bearing Precaution NWB right LE ACTIVITIES OOB only with supervision THERAPIES: - Orthotics/Prosthetics Prosthetic Evaluation - Dietary and Nutrition Adequate Nutrition Nutritional Education Nutritional Supplements Evaluate and Treat - Occupational Therapy Cognitive Retraining Patient needs Occupational Therapy for a daily minimum of 1.5 hours at least 5 out of 7 days, to impr ove Activities of Daily Living, including: Eating, Grooming, Bathing, Dressing, Toileting, Toilet Tra nsfers, Community Reintegration, Higher functional activities, Adaptive Equipment, Splinting, Househo ld Tasks, and Other activities as determined Visual Perceptual Training Evaluate and Treat Adaptive Equipment ADL Training Patient/Family Education Transfer Training - Speech Therapy Cognitive Training Expressive Language Skills Memory Strategies Patient needs Speech Therapy for a daily minimum of 1.5 hours at least 5 out of 7 days, to improve: S wallowing, Cognition, Language Skills, and Compensatory Strategies Receptive Language Skills Speech Intelligibility Training Evaluate and Treat - Physical Therapy Patient needs Physical Therapy for a daily minimum of 1.5 hours at least 5 out of 7 days, to improve: Mobility, Strengthening, Transfers, Stretching, ROM, Endurance, Ability to manage stairs, Gait, and Balance Balance Training Evaluate and Treat Gait Training LE ROM Medical Equipment Assessment and Evaluation Patient/Family Education Safety Awareness Transfer Training HISTORY OF PRESENT ILLNESS: Pt. is a 70 yo female of unknown race.Pre-morbidly, Pt. was independent/mod-I in Locomotion, Safety A wareness, Social Cognition, and Balance; and she had good Transfers Control, Sphincter Control, Commu nication, Self-Care, and Endurance.Currently, she has deficits of Locomotion, Safety Awareness, Socia l Cognition, Transfers Control, Balance, Sphincter Control, Self-Care, Communication, and Endurance.Judy andrews is now referred to [facility] for acute in-patient rehabilitation in order to maximize patient's functional independence in activities of daily living, strength, ROM, and mobil ity.- Rehab Goal Patient has realistic goal of being discharged at assistance level 7-Ind to reside at Home with Fami ly/Relatives. DIET - LIQUID TEXTURE: On 07/25/2021 Pt was upgraded to Regular Diet - Liquid Texture. DIET - SOLID TEXTURE: On 07/25/2021 Pt was upgraded to Regular Diet - Solid Texture. DIET TYPE: On 07/25/2021 Pt was upgraded to Regular Diet Type. TUBE FEED: On 07/25/2021 Pt was changed to N/A Tube Feed. WEIGHT BEARING PRECAUTION: On 07/29/2021 the following precautions were added for the patient: Weight Bearing Precaution - NWB r ight LE, and Weight Bearing Precaution - NWB right LE. On 07/30/2021 the following precautions were removed for the patient: Weight Bearing Precaution - NW B right LE. On 07/31/2021 the following precautions were added for the patient: Weight Bearing Precaution - NWB right LE. DISCHARGE PHYSICAL EXAM - Gen Alert and awake Lying in bed No apparent distress Oriented to: person, time, and place - Skin Right BKA bandage in place with good hemostasis. Normacephalic - Eyes No abnormalities - ENMT No abnormalities - Neck No abnormalities - CVS RRR - Chest No abnormalities - Abd Soft - GI + bowel sounds Deferred - No abnormalities - Ext Right BKA stump with good hemostasis. - MSK No focal deficits, mild diffuse weakness - Neuro No focal deficits - Psych No abnormalities QI SCORES: - Self-Care A. Eating 03-Partial/moderate assistance B. Oral hygiene 03-Partial/moderate assistance C. Toileting hygiene 03-Partial/moderate assistance E. Shower/bathe self 02-Substantial/maximal assistance F. Upper body dressing 03-Partial/moderate assistance G. Lower body dressing 02-Substantial/maximal assistance H. Putting on/taking off footwear 88-Not attempted due to medical condition or safety concerns - Mobility A. Roll left and right 03-Partial/moderate assistance B. Sit to lying 03-Partial/moderate assistance C. Lying to sitting on side of bed 03-Partial/moderate assistance D. Sit to stand 03-Partial/moderate assistance E. Chair/[id number] transfer 03-Partial/moderate assistance F. Toilet transfer 03-Partial/moderate assistance G. Car transfer 88-Not attempted due to medical condition or safety concerns I. Walk 10 feet 03-Partial/moderate assistance J. Walk 50 feet with two turns 88-Not attempted due to medical condition or safety concerns K. Walk 150 feet 88-Not attempted due to medical condition or safety concerns L. Walking 10 feet on uneven surfaces 88-Not attempted due to medical condition or safety concerns M. 1 step (curb) 88-Not attempted due to medical condition or safety concerns N. 4 steps 88-Not attempted due to medical condition or safety concerns O. 12 steps 88-Not attempted due to medical condition or safety concerns P. Picking up object 88-Not attempted due to medical condition or safety concerns R. Wheel 50 feet with two turns 88-Not attempted due to medical condition or safety concerns S. Wheel 150 feet 88-Not attempted due to medical condition or safety concerns - Bladder and Bowel Bladder continence Bowel continence - Endurance Fair - Balance Poor - Safety Awareness Fair DISCHARGE INSTRUCTIONS: - Followup The patient will have a incentive spirometry on 08/09/2021. DISCHARGE PLAN, FOLLOW UP CARE PROVISIONS: - Estimated Length of Stay (days) 11. - Consensus on plan Discharge plan has been discussed with primary caregiver. Patient/Family is in agreement with the yadiel n. Primary caregiver is in agreement with the plan. - Patient/Family Goals Return home independently. - Planned Living Setting Upon Discharge Home, to live with Family/Relatives. Transitional Living. SIGNATURE PANEL: (CDT)
== END 2021-08-09 16:05 | disposition home health service (06) | DRG 561 ==
LOC: 5TH 07-28 20:11
PROVIDERS: ADMIT Psychiatry & Neurology Neurology with Special Qualifications in Child Neurology; ATTEND Psychiatry & Neurology Neurology with Special Qualifications in Child Neurology
DX: Z47.81 Encounter for orthopedic aftercare following surgical amputation (principal); Z89.511 Acquired absence of right leg below knee; R53.81 Other malaise; I10 Essential (primary) hypertension; E11.9 Type 2 diabetes mellitus without complications; Z20.822 Contact with and (suspected) exposure to COVID-19
CPT/HCPCS: 36415; 80048; 81003; 81015; 82040; 82947; 83036; 83735; 84132; 84134; 85025; 85027; 87086; 87088; 97110; 97112; 97116; 97161; 97165; 97530; 97542; J1650; J1815; J7030; J7040; U0003

== ENCOUNTER 2022-02-27 11:38 | Inpatient (IN) | payer OTHER, MEDICARE ==
--- OUTSIDE RECORDS SUMMARY | 2022-02-27 11:41 | XMS REPORT | Continuity of Care Document ---
:1950 Author Organization [facility] t Address [address] [place] [address] Care Team Providers Name Role Phone Brunilda Torres Attending Clinician Unavailable Brunilda Torres Admitting Clinician Unavailable Payers Payer Name Policy Type Policy Number Effective Date Expiration Date S ource Problems This patient has no known problems. Allergies, Adverse Reactions, Alerts Allergy Allergy Status Severity Reaction(s) Onset Inactive Treating Comm ents Source Name Type Date Date Clinician No Known DA Active U [facility] Allergie 06-15 [facility] 00:00: [address] Medications This patient has no known medications. Procedures This patient has no known procedures. Encounters Start End Encounter Admission Attending Care Care Encounter Source Date/Time Date/Time Type Type Clinicians Facility Department ID 2021-06-15 2021-06-15 Outpatient MINGO Sharma SURG [id number] [facility] 04:48:00 04:48:00 [place] 25 [facility] Results Test Description Test Time Test Comments [...] (test code = 121 MG/DL 0-99 H OPTIMAL.........<100 mg/dLNEAR LDL) OPTIMAL/ABOVE OPTIMAL........ .100-129 mg/dL BORDERLINE HIGH .........130-159 mg/dL HIGH..... ....160-189 mg/dL VERY HIGH...... ...>/= 190 mg/dL [id number] 07:24:00 Test Item Value Reference Range Interpretation Comments MAGNESIUM (test code = MAG) 2.6 MG/DL 1.6-2.3 H BASIC METABOLIC [id number] 07:24:00 Test Item Value Reference Range Interpretation [...] = 9.4 MG/DL 8.4-10.2 N CA) PROTHROMBIN [id number] 07:08:00 Test Item Value Reference Range Interpretation Comments PROTHROMBIN TIME 13.0 SECONDS 9.4-12.7 H PATIENT (test code = PTP) INTERNATIONAL NORMAL 1.2 0.86-1.14 H The INR is to be RATIO (test code = used only for INR) monitoring oral anticoagulantth erap y. INDICATION I NR VALUE ---- ---- ---- -------1. Prophylaxis, de ep venous thrombos is, including high risk surgery. 2.0 - 3.0 2. Prophylaxis, deep venous thrombosis, hip surgery, treatm ent for deep venous thrombosis or pulmonary prevention of systemic emboli sm in patients wit h valvular heart disease, atrial fibrillation, tissue heart va lve, or acute myocar dial infarction. 2.0 - 3.0 3. Tier Lift Operator al prosthesis hear t valves, recurre nt systemic emboli sm. 3.0 - 4.5 PTT [id number] 07:08:00 Test Item Value Reference Range Interpretation Comments PTT ACTIVATED (test code = APTT) 33.5 SECONDS 26.2-35.4 N CBC W/AUTO [id number] 06:58:00 Test Item Value Reference Range Interpretation [...] 0.0-0.1 N NRBC#) COVID 19 Asymptomatic IH [id number] 05:12:00 Test Item Value Reference Range Interpretation Comments COVID 19 NEGATIVE Negative "Negative resul ts from Asymptomatic IH AG patients with symptom (test code = onset beyondfiv e days, COVNONPUIAG) should be treat ed as presumptive, andconfirmation with a molecular assay [...]
[2022-02-27 12:29] LABS: Absolute Lymphocytes (CBC) 1.7 K/uL (0.7-4.9); Hematocrit 32.3 % (36.0-45.0); MCV 78.2 fL (80-100); MPV 8.3 fL (7.6-11.3); RBC Red Blood Cell Count 4.13 M/uL (3.86-4.86)
[2022-02-27 12:35] LABS: Protime INR 1.3
[2022-02-27] MEDS ORDERED: NA CHLORIDE 0.9% 250 ML ONE (12:43)
[2022-02-27] MEDS ORDERED: VANCOMYCIN 1 GM/VIAL ONE (12:43)
[2022-02-27 12:46] LABS: Albumin 2.8 g/dL (3.4-5.0); Bilirubin Total 0.3 mg/dL (0.2-1.0); Potassium 4.9 mmol/L (3.5-5.1); Protein, Total 8.1 g/dL (6.4-8.2)
[2022-02-27] MEDS ORDERED: VANCOMYCIN 1 GM in NA CHLORIDE 0.9% 250 ML IVPB ONE (13:00)
--- NOTE | 2022-02-27 13:01 | EDPHYS ---
Physician Documentation [facility] Name: Kimberly Dhillon Age: 71 yrs Sex: Female : 1950 Arrival Date: 02/27/2022 Time: 11:41 Bed 23 Private MD: Delano Townsend ED Physician Paul Cisneros HPI: 02/27 12:15 This 71 yrs old Female presents to ER via Wheelchair with complaints of snw Infected Toe. 12:15 Onset: The symptoms/episode began/occurred 6 month(s) ago, and became worse 1 week(s) snw ago, and became persistent. Associated signs and symptoms: Pertinent positives: increased redness to left foot. Modifying factors: The patient symptoms are alleviated by nothing. The patient has experienced a previous episode. The patient has been recently seen by a physician: the patient's primary care provider, Dr. Townsend with similar presenting complaints, Dr. Bonilla saw pt in his office today and sent for admission. 12:15 The patient presents with swelling, tenderness, left toe wound. snw Historical: - Allergies: 12:08 No Known Allergies; ap3 - Home Meds: 12:08 unknown blood thinner [Active]; unknown blood pressure medication [Active]; unknown ap3 insulin [Active]; - PMHx: 12:08 Diabetes mellitus; Hypertensive disorder; Hypertensive disorder; blind in right eye; ap3 right BKA; - Immunization history:: Client reports receiving the 2nd dose of the Covid vaccine. - Social history:: Smoking status: Patient denies any tobacco usage or history of. - History obtained from: Dr. Bonilla - expect pt to have ed eval and be admitted. Will debride tomorrow. ROS: 12:14 Constitutional: Negative for fever, chills, and weight loss, Eyes: Negative for injury, snw pain, redness, and discharge, ENT: Negative for injury, pain, and discharge, Neck: Negative for injury, pain, and swelling, Cardiovascular: Negative for chest pain, palpitations, and edema, Respiratory: Negative for shortness of breath, cough, wheezing, and pleuritic chest pain, Abdomen/GI: Negative for abdominal pain, nausea, vomiting, diarrhea, and constipation, Back: Negative for injury and pain, : Negative for injury, bleeding, discharge, and swelling, Neuro: Negative for headache, weakness, numbness, tingling, and seizure. 12:14 Skin: Positive for wound to left toe for months, has been having wound care since August at home. . Exam: 18:07 Constitutional: This is a well developed, well nourished patient who is awake, alert, snw and in no acute distress. Head/Face: Normocephalic, atraumatic. 18:07 ENT: Nares patent. No nasal discharge, no septal abnormalities noted. Tympanic membranes are normal and external auditory canals are clear. Oropharynx with no redness, swelling, or masses, exudates, or evidence of obstruction, uvula midline. Mucous membranes moist. Neck: Trachea midline, no thyromegaly or masses palpated, and no cervical lymphadenopathy. Supple, full range of motion without nuchal rigidity, or vertebral point tenderness. No Meningismus. Chest/axilla: Normal chest wall appearance and motion. Nontender with no deformity. No lesions are appreciated. Cardiovascular: Regular rate and rhythm with a normal S1 and S2. No gallops, murmurs, or rubs. Normal PMI, no JVD. No pulse deficits. Respiratory: Lungs have equal breath sounds bilaterally, clear to auscultation and percussion. No rales, rhonchi or wheezes noted. No increased work of breathing, no retractions or nasal flaring. 18:07 Back: No spinal tenderness. No costovertebral tenderness. Full range of motion. Neuro: Awake and alert, GCS 15, oriented to person, place, time, and situation. Cranial nerves II-XII grossly intact. Motor strength 5/5 in all extremities. Sensory grossly intact. Cerebellar exam normal. Normal gait. Psych: Awake, alert, with orientation to person, place and time. Behavior, mood, and affect are within normal limits. 18:07 Eyes: Exam is negative for acute changes, blind in right eye. 18:07 Abdomen/GI: Inspection: abdomen appears normal, Bowel sounds: normal, Palpation: mild abdominal tenderness, in all quadrants. 18:07 Skin: Appearance: normal except for affected area, R BKA without breakdown or erythema, left great toe with necrosis, edema, dorsal foot with erythema to ankle. . Vital Signs: 12:32 BP 123 / 101; Pulse 96; Resp 18; Temp 98.2(O); Pulse Ox 100% on R/A; Pain 0/10; mb9 13:40 BP 160 / 78; Pulse 92; Resp 18; Pulse Ox 100% on R/A; Pain 0/10; mb9 MDM: 11:51 Patient medically screened. snw 12:17 Differential diagnosis: bacterial infection, Diabetic foot/vascular occlusion. Data snw reviewed: vital signs, nurses notes. 12:52 Data interpreted: Pulse oximetry: on room air is 100 %. Interpretation: normal. snw Physician consultation: Wilbur Burnett NP was called at 12:52, was contacted at 12:52, regarding admission, to the medical/surgical unit. would like consultation with , would like admission per Dr. Calixto Manrique MD. 12:54 Differential diagnosis: arthritis, cellulitis, osteo. Counseling: I had a detailed snw discussion with the patient and/or guardian regarding: the historical points, exam findings, and any diagnostic results supporting the discharge/admit diagnosis. 02/27 11:45 Order name: Blood Culture Adult (2) snw 02/27 11:45 Order name: CBC with Diff; Complete Time: 12:34 snw 02/27 11:45 Order name: CMP; Complete Time: 12:50 snw 02/27 11:45 Order name: Lactate w/ 2H reflex if indic.; Complete Time: 12:44 snw 02/27 11:45 Order name: Protime (+inr); Complete Time: 12:39 snw 02/27 11:45 Order name: Ptt, Activated; Complete Time: 12:39 snw 02/27 11:45 Order name: EKG; Complete Time: 11:46 snw 02/27 11:45 Order name: US LE Arterial Bilateral; Complete Time: 13:33 snw 02/27 12:54 Order name: Foot Left Wo Cont; Complete Time: 15:04 EDMS 02/27 13:21 Order name: SARS RAPID; Complete Time: 14:05 mb9 02/27 13:21 Order name: Glucose, Ancillary Testing; Complete Time: 13:33 EDMS 02/27 17:12 Order name: Glucose, Ancillary Testing; Complete Time: 17:14 EDMS 02/27 11:45 Order name: Accucheck; Complete Time: 13:10 snw 02/27 11:45 Order name: Cardiac monitoring; Complete Time: 12:19 snw 02/27 11:45 Order name: EKG - Nurse/Tech; Complete Time: 12:31 snw 02/27 11:45 Order name: IV Saline Lock - Large Bore; Complete Time: 12:31 snw 02/27 11:45 Order name: Labs collected and sent; Complete Time: 12:31 snw 02/27 11:45 Order name: O2 Per Protocol; Complete Time: 12:19 snw 02/27 11:45 Order name: O2 Sat Monitoring; Complete Time: 12:19 snw 02/27 11:45 Order name: Vital Signs; Complete Time: 12:31 snw 02/27 18:07 Order name: PO challenge: Dinner please; Complete Time: 19:15 snw EC:30 Rate is 98 beats/min. Rhythm is regular. No ST changes noted. Clinical impression: NSR snw w/ Non-specific ST/T Changes. Administered Medications: 12:34 Not Given (Physician Discretion): vancoMYCIN 1.5 grams IVPB at calculated rate once snw 13:38 Drug: vancoMYCIN 1 grams Route: IVPB; Infused Over: 2 hrs; Site: left antecubital; mb9 17:38 Follow up: Response: No adverse reaction; IV Status: Infusion continued mb9 Disposition: 16:59 Co-signature as Attending Physician, Paul MORAN was immediately available on-site ms3 in the Emergency Department for consultation in the care of the patient. Disposition Summary: 02/27/22 13:00 Hospitalization Ordered Hospitalization Status: Inpatient Admission snw Provider: Ronny Euceda snashwini [facility]w Condition: Stable snw Problem: chronic snw Symptoms: have worsened snw Bed/Room Type: Standard snw Room Assignment: 428(02/27/22 18:49) bd Diagnosis - Osteomyelitis, unspecified snw - Personal history of diabetic foot ulcer snw Forms: - Medication Reconciliation Form snw - SBAR form snw Signatures: Dispatcher [employer] Alexandra Miller Shelly, FNP-C GRIEF COUNSELOR-Csnw Minda Wilson RN RN ap3 Hollie Paige RN RN ll1 Paul Cisneros DO DO ms3 Holli Fletcher RN RN mb9 Corrections: (The following items were deleted from the chart) 18:49 13:00 snw bd
--- NOTE | 2022-02-27 13:01 | ER ---
Nurse's Notes [facility] Name: Kimberly Dhillon Age: 71 yrs Sex: Female : 1950 Arrival Date: 02/27/2022 Time: 11:41 Bed 23 Private MD: Delano Townsend Diagnosis: Osteomyelitis, unspecified;Personal history of diabetic foot ulcer Presentation: 02/27 12:06 Chief complaint: Patient states: she was sent by Dr. Bonilla for an infection in her ap3 left great toe. Patient states that she has been seen by wound care at her residence since July of 2021. Coronavirus screen: At this time, the client does not indicate any symptoms associated with coronavirus-19. Ebola Screen: No symptoms or risks identified at this time. Initial Sepsis Screen:. Risk Assessment: Do you want to hurt yourself or someone else? Patient reports no desire to harm self or others. Onset of symptoms was July 2021. 12:06 Method Of Arrival: Wheelchair ap3 12:12 Initial Sepsis Screen: Does the patient have a suspected source of infection? Yes: Skin ap3 breakdown/wound. 12:12 Acuity: ÁNGEL 3 mb9 Triage Assessment: 12:11 General: Appears in no apparent distress. Behavior is calm, cooperative. Pain: Denies ap3 pain. Neuro: Level of Consciousness is awake, alert, obeys commands, Oriented to person, place, time, situation, Speech is normal. Cardiovascular: Patient's skin is warm and dry. Respiratory: Airway is patent Respiratory effort is even, unlabored. Historical: - Allergies: 12:08 No Known Allergies; ap3 - Home Meds: 12:08 unknown blood thinner [Active]; unknown blood pressure medication [Active]; unknown ap3 insulin [Active]; - PMHx: 12:08 Diabetes mellitus; Hypertensive disorder; Hypertensive disorder; blind in right eye; ap3 right BKA; - Immunization history:: Client reports receiving the 2nd dose of the Covid vaccine. - Social history:: Smoking status: Patient denies any tobacco usage or history of. - History obtained from: Dr. Bonilla - expect pt to have ed eval and be admitted. Will debride tomorrow. Screenin:12 Abuse screen: Denies threats or abuse. Nutritional screening: No deficits noted. ap3 Tuberculosis screening: No symptoms or risk factors identified. 12:12 [facility] ED Fall Risk Assessment (Adult) History of falling in the last 3 months, mb9 including since admission No falls in past 3 months (0 pts) Confusion or Disorientation No (0 pts) Intoxicated or Sedated No (0 pts) Impaired Gait Yes (1 pt) Mobility Assist Device Used Yes (1 pt) Altered Elimination No (0 pt) Score/Fall Risk Level 0 - 2 = Low Risk Oriented to surroundings, Maintained a safe environment, Educated pt \T\ family on fall prevention, incl call for assistance when getting out of bed. Assessment: 12:31 Reassessment: pt taken to ultrasound via stretcher. mb9 12:34 General: Appears in no apparent distress. comfortable, Behavior is calm, cooperative, mb9 appropriate for age. Pain: Denies pain. Neuro: Jeffrey Agitation-Sedation Scale (RASS): 0 - Alert and Calm Level of Consciousness is awake, alert, obeys commands, Oriented to person, place, time, situation, Appropriate for age. Cardiovascular: Heart tones S1 S2 present Rhythm is regular. Respiratory: Airway is patent Respiratory effort is even, unlabored, Respiratory pattern is regular, symmetrical, Breath sounds are clear bilaterally. GI: Abdomen is flat, non-distended, Bowel sounds present X 4 quads. : No signs and/or symptoms were reported regarding the genitourinary system. EENT: No signs and/or symptoms were reported regarding the EENT system. Derm: Skin is intact, Skin is dry, Skin is normal, Skin temperature is warm. Musculoskeletal: Amputation of right leg. Range of motion: intact in all extremities, Swelling present in left great toe and foot Left great toe is purple and red nail is torn off. No active bleeding noted. 13:41 Reassessment: pt currently sleeping. Respirations are even and unlabored. Rhythm is mb9 regular. Son is at bedside. 13:55 Reassessment: Pt taken to MRI via stretcher. mb9 Vital Signs: 12:32 BP 123 / 101; Pulse 96; Resp 18; Temp 98.2(O); Pulse Ox 100% on R/A; Pain 0/10; mb9 13:40 BP 160 / 78; Pulse 92; Resp 18; Pulse Ox 100% on R/A; Pain 0/10; mb9 ED Course: 11:41 Patient arrived in ED. mr 11:42 Delano Townsend MD is Private Physician. mr 11:44 Payton Dorado FNP-C is [facility]. snw 11:44 Paul Cisneros DO is Attending Physician. snw 11:52 Arm band placed on. ll1 11:52 Placed in gown. Bed in low position. Call light in reach. Side rails up X 1. Client mb9 placed on continuous cardiac and pulse oximetry monitoring. NIBP monitoring applied. nurse monitoring on. 11:59 Holli Fletcher, JENNIFER is Primary Nurse. mb9 12:25 EKG done, by ED staff, reviewed by Payton PEÑALOZA. mb9 12:25 Inserted saline lock: 20 gauge in left antecubital area, using aseptic technique. mb9 12:36 Triage completed. mb9 13:00 Ronny Euceda MD is Hospitalizing Provider. snw 13:01 [facility] Arterial Bilateral In Process Unspecified. EDMS 13:22 No provider procedures requiring assistance completed. mb9 13:33 Inserted saline lock: 22 gauge in right antecubital area, using aseptic technique. zm 13:37 SARS RAPID Sent. mb9 13:40 Blood Culture Adult (2) Sent. mb9 19:44 Patient admitted, IV remains in place. mb9 Administered Medications: 12:34 Not Given (Physician Discretion): vancoMYCIN 1.5 grams IVPB at calculated rate once snw 13:38 Drug: vancoMYCIN 1 grams Route: IVPB; Infused Over: 2 hrs; Site: left antecubital; mb9 17:38 Follow up: Response: No adverse reaction; IV Status: Infusion continued mb9 Medication: 13:22 VIS not applicable for this client. mb9 Outcome: 13:00 Decision to Hospitalize by Provider. snw 19:43 Admitted to Tele accompanied by tech, via wheelchair, room 428, with chart, Report mb9 called to JENNIFER Mullen 19:43 Condition: stable 20:18 Patient left the ED. mb9 Signatures: Dispatcher [employer] EDMS Payton Dorado FNP-C INTELLIGENCE DIRECTOR-Csnw Holli KaurMinda RN RN ap3 Hollie Paige RN RN ll1 Daily Bonilla Holli Fletcher, JENNIFER RN emanuel Corrections: (The following items were deleted from the chart) 12:39 12:34 Musculoskeletal: Amputation of right leg. Range of motion: intact in all mb9 extremities, mb9 13:21 12:32 BP 123 / 101; Pulse 96bpm; Resp 18bpm; Pulse Ox 100% RA; Pain 0/10; mb9 mb9
--- NOTE | 2022-02-27 13:23 | RAD REPORT ---
EXAM DESCRIPTION: US - Lower Extremity Arterial Bilat - 02/27/2022 12:59 pm CLINICAL HISTORY: vasculopath/infection Leg pain, claudication COMPARISON: No comparisons TECHNIQUE: Bilateral lower extremity arterial Doppler examination was performed with waveform tracin g and velocity measurements. FINDINGS: The patient is status post [id number] amputation on the right. Biphasic waveforms are seen bilaterally to the level of the popliteal vessels. The left-sided pwqjn-jgx-ksfe vessels including the left posterior tibial artery and dorsalis pedis a rtery are monophasic and blunted suggesting moderate infrapopliteal disease. IMPRESSION: Moderately severe infrapopliteal peripheral vascular disease on the left identified.
[2022-02-27 14:00] LABS: SARS-CoV-2 Antigen Rapid Res Negative (Negative)
--- NOTE | 2022-02-27 14:46 | P.HP ---
Certification for Inpatient With expected LOS: >2 Midnights Practitioner: I am a practitioner with admitting privileges, knowledge of patient current condition, hospital course, and medical plan of care. Services: Services provided to patient in accordance with Admission requirements found in Title 42 Section 412.3 of the Code of Federal Regulations Patient History Date of Service: 02/27/22 Primary Care Provider: Kristian Reason for admission: Osteomyelitis of left foot History of Present Illness: This is a 71 year old female with PMH of DM2, HTN, GERD, right eye blindness and right BKA, who presents to the emergency room with her sons with complaint of right big toe infection. Patient states that she woke up this morning and noticed that her right big toenail had fallen off. She states that she has neuropathy and no pain was noted. She reported no symptoms except for noticing her toe being black/bluish. Patient was evaluated in the ER with her sons at the bedside. She is alert and oriented, no distress noted. MRI of the left foot demonstrated [id number] osteomyelitis involving the distal phalanx of the great toe suspected. Patient will be admitted to the hospital under the care of Dr. Manrique. Surgery will be consulted. Allergies No Known Allergies Allergy (Verified 07/23/21 14:46) Home Medications: Acetaminophen [Tylenol] 650 mg PO Q6H PRN 07/28/21 Aspirin 81 mg PO DAILY 07/28/21 Atorvastatin Calcium [Lipitor*] 20 mg PO DAILY 07/28/21 Bimatoprost [Lumigan Opthalmic Drops*] 1 drop LEFT EYE BEDTIME 07/28/21 Hydrocodone 5/APAP 325 [[place] 5/325*] 1 tab PO Q4H PRN 07/28/21 Pantoprazole Sodium [Protonix] 40 mg PO 0630 07/28/21 Acetaminophen [Tylenol*] 650 mg PO Q6H PRN tab 08/07/21 Docusate/Senna [Senokot-S*] 2 tab PO BEDTIME PRN #60 tab 08/07/21 Ferrous Sulfate [Ferrous Sulfate*] 325 mg PO DAILY #30 tab 08/07/21 Gabapentin [Neurontin*] 100 mg PO BEDTIME #30 cap 08/07/21 Glucerna Shake [Glucerna*] 237 ml PO BID #60 can 08/07/21 Iron/FA/Vit B-Com W/C [Hemocyte Plus*] 1 tab PO DAILY WITH BREAKFAST #30 tab 08/07/21 Levemir Flextouch 16 units SQ BREAKFAST #30 08/07/21 Levemir Insulin 12 units SQ BEDTIME 30 Days 08/07/21 - Past Medical/Surgical History Diabetic: No -: HTN -: DM -: Right eye blindness -: Right Corena Transplant -: R BKA 07/24/21 - Social History Smoking Status: Never smoker Alcohol use: No CD- Drugs: No Caffeine use: Yes Review of Systems 10-point ROS is otherwise unremarkable Eyes: Other (Right eye blindness) Musculoskeletal: As per HPI Physical Examination - Vital Signs Temperature: 98.2 F Blood Pressure: 160/78 Pulse: 98 Respirations: 16 Pulse Ox (%): 100 - Physical Exam General: Alert, Oriented x3 HEENT: Atraumatic, Normocephalic Neck: Supple Respiratory: Clear to auscultation bilaterally, Normal air movement Cardiovascular: No edema, Normal pulses Capillary refill: <2 Seconds Gastrointestinal: Normal bowel sounds Musculoskeletal: Other (right big toe osteomyelitis black/necrotic, RBKA) Integumentary: Warmth Neurological: Normal speech Lymphatics: No axilla or inguinal lymphadenopathy - Studies Laboratory Data (last 24 hrs) 02/27/22 12:19: PT 14.3 H, INR 1.30, APTT 23.8 L 02/27/22 12:19: Sodium 134 L, Potassium 4.9, BUN 42 H, Creatinine 1.17 H, Glucose 345 H, Total Bilirubin 0.3, AST 15, ALT 16, Alkaline Phosphatase 148 H 02/27/22 12:19: WBC 19.10 H, Hgb 10.5 L, Hct 32.3 L, Plt Count 534 H Assessment and Plan - Plan Assessment Oestomyelitis of left foot GERD DM2 HLD Diabetic neuropathy Plan Oestomyelitis of left foot -MRI of left foot Crcx-nz-vnuqrzqr osteomyelitis involving the distal phalanx of the great toe suspected -BLE U/S doppler - Moderately severe infrapopliteal peripheral vascular disease on the left identified -Continue antibiotic, medicate for pain -Surgery consulted, recommendations appreciated -NPO after midnight GERD -Continue Protonix DM2 -Continue Accu-Check ACHS with sliding scale insulin coverage -Accu-Check Q6 when NPO HLD -Continue statin when appropriate Diabetic neuropathy -Resume Gabapentin when appropriate PPX- SCDs, PPI Code status- Full code Discharge Plan: Home - Advance Directives Does patient have a Living Will: No Does patient have a Durable POA for Healthcare: No - Code Status/Comfort Care Code Status Assessed: Yes (Full code)
--- NOTE | 2022-02-27 14:59 | RAD REPORT ---
EXAM DESCRIPTION: MRI - Foot Left Wo Cont - 02/27/2022 2:31 pm CLINICAL HISTORY: r/o brandon Pain, swelling, osteomyelitis. COMPARISON: No comparisons FINDINGS: Soft tissue ulceration is seen involving the distal medial aspect of the great toe. The un derlying distal phalanx demonstrates elevated T2 signal diminished T1 signal likely indicating osteom yelitis. No fracture is seen. No soft tissue mass or hematoma. IMPRESSION: Uggo-jf-uwtzhbeu osteomyelitis involving the distal phalanx of the great toe suspected.
[2022-02-27] MEDS: CEFEPIME 2 GM in NA CHLORIDE 0.9% 100 ML IV SCH (15:00)
[2022-02-27 15:16] VITALS: BMI 15.2
[2022-02-27] MEDS ORDERED: CEFEPIME 2 GM VIAL ONE (15:21)
[2022-02-27] MEDS ORDERED: NA CHLORIDE 0.9% 100 ML IV ONE (15:21)
[2022-02-27] MEDS ORDERED: ONDANSETRON 4 MG/2 ML VIAL ONE (15:21)
[2022-02-27] MEDS: ONDANSETRON 4 MG/2 ML VIAL IV PRN ×2 (15:30→22:17)
[2022-02-27] MEDS ORDERED: INFLUENZA VACCINE (for 6+ mo) 0.5 ML DOSE IMVAC ONE (16:00)
[2022-02-27] MEDS: INSULIN -REGULAR HUMAN 50 UNIT/0.5 ML ML SQ SCH ×2 (16:30→21:23)
[2022-02-27] MEDS ORDERED: CLINDAMYCIN INJ 300 MG in NA CHLORIDE 0.9% 50 ML IV SCH (18:00)
[2022-02-27 20:28] VITALS: O2SAT 100
[2022-02-27 22:17] LABS: Specific Gravity 1.018 (1.005-1.030); Urine Bacteria <20 /HPF (<20); Urine Bilirubin NEGATIVE (Negative); Urine Blood Trace (Negative); Urine Clarity Clear (Clear); Urine Color Light-Yellow (Yellow); Urine Crystals Unidentified Few /HPF (None Seen); Urine Glucose 4+ (Over) (Negative); Urine Mucus Slight /HPF (None Seen); Urine Protein 1+ (Negative); Urine Urobilinogen Normal (Normal)
[2022-02-28 03:37] LABS: Absolute Lymphocytes (CBC) 1.4 K/uL (0.7-4.9); Hematocrit 28.7 % (36.0-45.0); Lymphocytes % 5.9 % (15.3-44.8); MCV 76.9 fL (80-100); MPV 8.4 fL (7.6-11.3); RBC Red Blood Cell Count 3.73 M/uL (3.86-4.86)
[2022-02-28] MEDS: MORPHINE 2 MG/ML SYR IV PRN ×3 (03:44→21:00)
[2022-02-28 03:49] LABS: Magnesium 2.2 mg/dL (1.6-2.4); Phosphorus 3.6 mg/dL (2.5-4.9); Potassium 4.6 mmol/L (3.5-5.1)
[2022-02-28] MEDS ORDERED: NA CHLORIDE 0.9% 100 ML ONE (03:54)
[2022-02-28] MEDS ORDERED: CEFEPIME 2 GM VIAL ONE (03:54)
[2022-02-28] MEDS: CEFEPIME 2 GM in NA CHLORIDE 0.9% 100 ML IV SCH ×2 (04:24→15:00)
[2022-02-28 04:54] LABS: Platelet Estimate INCR
[2022-02-28 04:55] LABS: Blood Morphology Comment NOT SEEN (NOT SEEN)
[2022-02-28] MEDS: INSULIN -REGULAR HUMAN 50 UNIT/0.5 ML ML SQ SCH ×4 (07:30→21:01)
[2022-02-28] MEDS: NA CHLORIDE 0.9% 1,000 ML IV SCH ×3 (08:53→21:02)
[2022-02-28] MEDS: VANCOMYCIN 750 MG in NA CHLORIDE 0.9% 150 ML IVPB SCH (13:43)
[2022-02-28] MEDS ORDERED: BUPIVACAINE 0.5% PF 10 ML VIAL ONE (14:31)
[2022-02-28] MEDS ORDERED: propofoL 200 MG/20 ML VIAL IV ONE ×2 (14:33→14:52)
[2022-02-28] MEDS ORDERED: MIDAZOLAM HCL 2 MG/2 ML INJ ONE (14:33)
[2022-02-28] MEDS ORDERED: LIDOCAINE 2% MPF 5 ML VIAL ONE (14:33)
[2022-02-28] MEDS ORDERED: FENTANYL CITR 100 MCG/2 ML ONE (14:33)
[2022-02-28] MEDS ORDERED: EPHEDRINE SULF 50 MG/ML VIAL ONE (15:09)
--- NOTE | 2022-02-28 15:28 | P.BOP ---
Preoperative diagnosis: Left first toe gangrene, left foot ischemia, cellulitis, PVD Postoperative diagnosis: same Primary procedure: Transmetatarsal amputation left first toe Estimated blood loss: <1cc Findings: gangrenous toe Anesthesia: General Complications: None Transferred to: Recovery Room Condition: Good
[2022-02-28] MEDS: MORPHINE 4 MG/ML SYR ONE ×2 (15:41→15:46)
[2022-02-28] MEDS: GLUCERNA SHAKE 237 ML CAN PO SCH (21:02)
--- NOTE | 2022-02-28 23:14 | P.PN ---
Date of Service: 02/28/22 Subjective: s/p toe amputation today feeling better no new/worsening symptoms ROS: A complete review of systems was performed and is negative except as mentioned above Physical Exam: Gen: NAD, AOx3 CV: regular rate & rhythm, no edema Pulm: non-labored respirations, clear bilaterally Abd: soft, non-tender, non-distended Skin: surgical dressing in place Neuro: normal speech, normal affect, moves all extremities vitals reviewed Problem List Oestomyelitis of left foot GERD DM2 HLD Diabetic neuropathy Osteomyelitis of left great toe MRI of left foot Gdee-vw-[id number] osteomyelitis involving the distal phalanx of the great toe suspected BLE U/S doppler Moderately severe infrapopliteal peripheral vascular disease on the left identified Continue empiric antibiotics pain meds as needed Surgery consulted, recommendations appreciated s/p amputation 02/28 f/u cultures ID consulted GERD -Continue Protonix DM2 -Continue Accu-Check ACHS with sliding scale insulin coverage -Accu-Chek HLD -Continue statin when appropriate Diabetic neuropathy -Resume Gabapentin when appropriate Code: full Dispo: home, ~2-3 days Time Spent Managing Pts Care (In Minutes): 35
--- NOTE | 2022-02-28 23:33 | OP ---
Date of Procedure: 02/28/2022 Surgeon: Mumtaz Bonilla MD Preoperative Diagnoses: Gangrene of the left first toe with ischemia of the left foot and cellulitis . Postoperative Diagnoses: Gangrene of the left first toe with ischemia of the left foot and celluliti s. Procedure: Transmetatarsal amputation of the left first toe. Anesthesia: General plus local. Complications: None. Findings: The toe was completely gangrenous. Proximal to that, metatarsal region showed some ischem ic changes. We have to go through the devitalized and necrotic tissue until we have at least transme tatarsal area, that is where we will make the transmetatarsal amputation. Profuse irrigation was don e over the entire area. Minimal bleeding consistent with severe peripheral vascular disease and high chance for even higher amputation in the future. Complications: None. Packing: Wet-to-dry. Indications: This is the case of a female known to us due to history of peripheral vascular disease. She had an amputation of the opposite foot several years ago. Now comes with ischemic changes over the left foot area and gangrene of the left first toe, once again indicative for severe peripheral v ascular disease. This time it does have a superimposed infection with necrotic tissue present and a combination of wet gangrene. She understands the options and she does not want a below-knee amputati on at this moment, but the white count keeps climbing and the infection is getting out of control so at least, she will let us do the transmetatarsal amputation of the left first toe. Benefits, alterna tives, and risks include, but are not limited to infection, bleeding, damage to adjacent structures, anesthesia complication, nonhealing wound, UT, and even . She also understands this may not rel ieve her symptoms and she might need more than one surgical intervention. She understands she will r equire wound care more and there is a chance this might not heal at all. The patient understands nati t this may not heal and she may need higher amputation. She understand, but she is only ready for th e toe amputation at this moment. Procedure In Detail: The patient was brought to the operating room, placed in supine position, and a nesthesia was given without complication. The left foot was prepped and draped in a sterile fashion. First, amputation was made at the area of the first toe region metatarsophalangeal joint. We have black completely gangrenous toe, but when we did disconnect that, we noticed that the metatarsal head has still once again, the skin and the area with ischemic changes. So we went back into that bone u ntil we had healthier tissue and then we proceeded to debride that area, did transmetatarsal amputati on, and then packed the area wet-to-dry dressing because we cannot close at this time with the amount of infection. Bleeding during this process was minimal, if any. The area was profusely irrigated, packed with wet-to-dry dressing, and the patient was sent to recovery in stable condition. The patie nt will let that foot delineate the next few days and if she see no progress, then she will consider the amputation. JESSE/THELMA Voice ID: [id number] Report ID: [id number]
[2022-03-01] MEDS ORDERED: CEFEPIME 2 GM VIAL ONE ×3 (02:22→20:14)
[2022-03-01] MEDS ORDERED: NA CHLORIDE 0.9% 100 ML IV ONE ×2 (02:24→15:51)
[2022-03-01] MEDS: CEFEPIME 2 GM in NA CHLORIDE 0.9% 100 ML IV SCH ×2 (02:28→15:00)
[2022-03-01 03:35] LABS: Absolute Lymphocytes (CBC) 1.7 K/uL (0.7-4.9); Hematocrit 24.4 % (36.0-45.0); Lymphocytes % 9.8 % (15.3-44.8); MCV 77.6 fL (80-100); MPV 8.5 fL (7.6-11.3); RBC Red Blood Cell Count 3.15 M/uL (3.86-4.86)
[2022-03-01] MEDS: MORPHINE 2 MG/ML SYR IV PRN (07:21)
[2022-03-01] MEDS: INSULIN -REGULAR HUMAN 50 UNIT/0.5 ML ML SQ SCH ×4 (07:30→21:00)
[2022-03-01] MEDS: GLUCERNA SHAKE 237 ML CAN PO SCH ×2 (08:27→23:40)
[2022-03-01 08:34] LABS: Potassium 4.8 mmol/L (3.5-5.1)
[2022-03-01] MEDS: VANCOMYCIN 750 MG in NA CHLORIDE 0.9% 150 ML IVPB SCH ×2 (13:00→15:43)
[2022-03-01] MEDS ORDERED: PANTOPRAZOLE 40MG TABLET PO ONE (16:58)
--- NOTE | 2022-03-01 17:31 | PN ---
Reason For Admission: Status post transmetatarsal amputation of the left first toe. Subjective: The patient is doing okay. WBC count is starting to come down. Has no shortness of evan ath. No chest pain. Objective: Chest: Clear. Abdomen: Soft and depressible. Extremities: Good capillary refill. Intact surgical site. Plan: Continue wet-to-dry dressing. Continue antibiotics. Remove the area of the osteomyelitis in the toe. Still she may need some antibiotics for the next week or so, but really the most important part here is revascularization if possible. So, she has had some vascular workup done before and vas cular evaluations. We suggest that when she gets discharged, once again go back to them to see if th ere is anything new they can be done for her. If not, then obviously we have to delineate and she un derstands the options of below-knee amputation, although she does not want to use them at this time. JESSE/THELMA Voice ID: [id number] Report ID: [id number]
--- NOTE | 2022-03-01 17:43 | EKG ---
Test Date: 2022-02-27 Test Time: 12:26:23 Nurse Wound: MB MEASUREMENT RESULTS: Intervals: Rate: 98 AK: 126 QRSD: 74 QT: 368 QTc: 469 [place]: P: 77 AK: 126 QRS: 82 T: 80 INTERPRETIVE STATEMENTS: Normal sinus rhythm Right atrial enlargement Cannot rule out Anterior infarct, age undetermined Abnormal ECG No previous ECG available for comparison Electronically Signed On 03-01-22 17:40:43 [employer]MENT DANC[employer] by Naveen Infante
[2022-03-01 19:42] LABS: RBC Red Blood Cell Count 3.21 M/uL (3.86-4.86)
--- NOTE | 2022-03-01 20:58 | P.PN ---
Date of Service: 03/01/22 Subjective: s/p toe amputation yesterday feeling better no new/worsening symptoms tolerating PO, voiding, +flatus ROS: A complete review of systems was performed and is negative except as mentioned above Physical Exam: Gen: NAD, AOx3 CV: regular rate & rhythm, no edema Pulm: non-labored respirations, clear bilaterally Abd: soft, non-tender, non-distended Skin: surgical dressing in place Neuro: normal speech, normal affect, moves all extremities vitals reviewed Problem List Osteomyelitis of left great toe; now s/p amputation 02/28 GERD DM2 with diabetic neuropathy HLD Anemia, microcytic; h/o iron deficiency Osteomyelitis of left great toe MRI of left foot - Cbhk-vh-xldvhtsg osteomyelitis involving the distal phalanx of the great toe suspected BLE U/S doppler Moderately severe infrapopliteal peripheral vascular disease on the left identified Continue empiric antibiotics pain meds as needed Surgery consulted, recommendations appreciated s/p amputation 02/28 f/u cultures ID consulted GERD -Continue Protonix DM2 with diabetic neuropathy-Continue Accu-Check ACHS with sliding scale insulin coverage; Accu-Chek. resume gabapentin HLD-Continue statin when appropriate Anemia, microcytic; h/o iron deficiency check iron studies; suspect will be low pt stopped taking iron supplements long ago due to constipation VTE: lovenox Code: full Dispo: home, ~2-3 days Time Spent Managing Pts Care (In Minutes): 35
[2022-03-02] MEDS: CEFEPIME 2 GM in NA CHLORIDE 0.9% 100 ML IV SCH ×2 (01:51→15:00)
[2022-03-02 04:01] LABS: Hematocrit 24.2 % (36.0-45.0); Lymphocytes % 9.7 % (15.3-44.8); MCV 78.4 fL (80-100); MPV 8.6 fL (7.6-11.3); RBC Red Blood Cell Count 3.09 M/uL (3.86-4.86)
[2022-03-02 04:31] LABS: Potassium 3.8 mmol/L (3.5-5.1)
[2022-03-02] MEDS: PANTOPRAZOLE 40MG TABLET PO SCH ×2 (06:37→10:03)
[2022-03-02] MEDS: INSULIN -REGULAR HUMAN 50 UNIT/0.5 ML ML SQ SCH ×4 (07:30→21:09)
[2022-03-02] MEDS: GLUCERNA SHAKE 237 ML CAN PO SCH ×2 (09:00→21:09)
[2022-03-02] MEDS: VANCOMYCIN 750 MG in NA CHLORIDE 0.9% 150 ML IVPB SCH (10:03)
[2022-03-02] MEDS: SOD FERRIC GLUC COMPLX/SUCROSE 125 MG in NA CHLORIDE 0.9% 100 ML IV SCH (10:03)
[2022-03-02] MEDS: ENOXAPARIN 40 MG/0.4 ML SQ SCH (10:03)
--- NOTE | 2022-03-02 14:00 | P.PN ---
Date of Service: 03/02/22 Subjective: no new/worsening symptoms tolerating PO, voiding, +flatus ROS: A complete review of systems was performed and is negative except as mentioned above Physical Exam: Gen: NAD, AOx3 CV: regular rate & rhythm, no edema Pulm: non-labored respirations, clear bilaterally Abd: soft, non-tender, non-distended Skin: surgical dressing in place Neuro: normal speech, normal affect, moves all extremities vitals reviewed Problem List Osteomyelitis of left great toe; now s/p amputation 02/28 GERD DM2 with diabetic neuropathy HLD Anemia, microcytic; iron deficiency Osteomyelitis of left great toe MRI of left foot - Toza-mb-urmzmslf osteomyelitis involving the distal phalanx of the great toe suspected BLE U/S doppler Moderately severe infrapopliteal peripheral vascular disease on the left identified Continue empiric antibiotics pain meds as needed Surgery consulted, recommendations appreciated s/p amputation 02/28 f/u cultures ID consulted recommends LTACH, concerned foot may not heal; would benefit from hyperbaric O2 leukocytosis increased, ?reactive no new or worsening symptoms; feels ok GERD -Continue Protonix DM2 with diabetic neuropathy-Continue Accu-Check ACHS with sliding scale insulin coverage; Accu-Chek. gabapentin HLD-Continue statin when appropriate Anemia, microcytic; iron deficiency severe iron deficiency IV iron started 03/02 pt stopped taking iron supplements long ago due to constipation VTE: lovenox Code: full Dispo: LTACH, ~2-3 days Time Spent Managing Pts Care (In Minutes): 35
[2022-03-02] MEDS ORDERED: CEFEPIME 2 GM VIAL ONE (16:46)
[2022-03-02] MEDS ORDERED: NA CHLORIDE 0.9% 100 ML IV ONE (16:47)
[2022-03-02] MEDS: MORPHINE 2 MG/ML SYR IV PRN (21:08)
[2022-03-02] MEDS ORDERED: POLYETHYL GLY 3350 17 GM/DOSE PO ONE (21:22)
[2022-03-03] MEDS ORDERED: CEFEPIME 2 GM VIAL ONE ×2 (02:29→14:46)
[2022-03-03] MEDS ORDERED: NA CHLORIDE 0.9% 100 ML IV ONE (02:32)
[2022-03-03] MEDS: CEFEPIME 2 GM in NA CHLORIDE 0.9% 100 ML IV SCH ×2 (03:02→14:55)
[2022-03-03 03:37] LABS: Hematocrit 24.4 % (36.0-45.0); MCV 77.2 fL (80-100); MPV 8.7 fL (7.6-11.3); RBC Red Blood Cell Count 3.16 M/uL (3.86-4.86)
[2022-03-03 03:47] LABS: Magnesium 1.7 mg/dL (1.6-2.4)
[2022-03-03] MEDS: VANCOMYCIN 750 MG in NA CHLORIDE 0.9% 150 ML IVPB SCH ×2 (04:58→22:33)
--- NOTE | 2022-03-03 07:03 | P.PN ---
Date of Service: 03/03/22 Subjective: improving no new/worsening symptoms tolerating PO, +Flatus ROS: A complete review of systems was performed and is negative except as mentioned above Physical Exam: Gen: NAD, AOx3 CV: regular rate & rhythm, no edema Pulm: non-labored respirations, clear bilaterally Abd: soft, non-tender, non-distended Skin: surgical dressing in place on L foot Neuro: normal speech, normal affect, moves all extremities vitals reviewed Problem List Osteomyelitis of left great toe; now s/p amputation 02/28 GERD DM2 with diabetic neuropathy HLD Anemia, microcytic; iron deficiency Osteomyelitis of left great toe MRI of left foot - Wngq-hk-qslmarar osteomyelitis involving the distal phalanx of the great toe suspected BLE U/S doppler Moderately severe infrapopliteal peripheral vascular disease on the left identified Continue empiric antibiotics pain meds as needed Surgery consulted, recommendations appreciated s/p amputation 02/28 f/u cultures ID consulted recommends LTACH, concerned foot may not heal; would benefit from hyperbaric O2, prolonged Abx - 6 wks leukocytosis increased, ?reactive no new or worsening symptoms; feels ok GERD -Continue Protonix DM2 with diabetic neuropathy-Continue Accu-Check ACHS with sliding scale insulin coverage; Accu-Chek. gabapentin HLD-Continue statin when appropriate Anemia, microcytic; iron deficiency severe iron deficiency IV iron started 03/02 pt stopped taking iron supplements long ago due to constipation VTE: lovenox Code: full Dispo: LTACH, once accepted Time Spent Managing Pts Care (In Minutes): 25
[2022-03-03] MEDS: INSULIN -REGULAR HUMAN 50 UNIT/0.5 ML ML SQ SCH ×4 (07:30→22:01)
[2022-03-03] MEDS: SOD FERRIC GLUC COMPLX/SUCROSE 125 MG in NA CHLORIDE 0.9% 100 ML IV SCH (09:15)
[2022-03-03] MEDS: ENOXAPARIN 40 MG/0.4 ML SQ SCH (09:16)
[2022-03-03] MEDS: GLUCERNA SHAKE 237 ML CAN PO SCH ×2 (09:17→22:02)
--- NOTE | 2022-03-03 09:20 | P.CNS ---
Primary Care Provider: Kristian Chief Complaint: Osteomyelitis of left foot History of Present Illness: This is a 71 year old female with PMH of DM2, HTN, GERD, right eye blindness and right BKA, who presents to the emergency room with her sons with complaint of right big toe infection. Patient states that she woke up this morning and noticed that her right big toenail had fallen off. She states that she has neuropathy and no pain was noted. She reported no symptoms except for noticing her toe being black/bluish. Patient was evaluated in the ER with her sons at the bedside. She is alert and oriented, no distress noted. MRI of the left foot demonstrated kjxa-rn-abvcdsfk osteomyelitis involving the distal phalanx of the great toe suspected. Patient will be admitted to the hospital under the care of Dr. Manrique. Surgery will be consulted. Allergies No Known Allergies Allergy (Verified 07/23/21 14:46) Home Medications: Aspirin 81 mg PO DAILY 07/28/21 Atorvastatin Calcium [Lipitor*] 20 mg PO DAILY 07/28/21 Bimatoprost [Lumigan Opthalmic Drops*] 1 drop LEFT EYE BEDTIME 07/28/21 Acetaminophen [Tylenol*] 650 mg PO Q6H PRN tab 08/07/21 Glucerna Shake [Glucerna*] 237 ml PO BIDP PRN 02/27/22 Levemir Flextouch 12 units SQ BIDWM 02/27/22 Lisinopril [Zestril] 5 mg PO DAILY 02/27/22 Rivaroxaban [Xarelto] 1 tab PO DAILY 02/27/22 - Past Medical/Surgical History Diabetic: No -: HTN -: DM -: Right eye blindness -: Right Corena Transplant -: R BKA 07/24/21 - Social History Alcohol use: No CD- Drugs: No Caffeine use: Yes Physical Examination Temp Pulse Resp BP Pulse Ox 98.9 F 84 17 130/63 100 03/03/22 08:00 03/03/22 08:00 03/03/22 08:00 03/03/22 08:00 03/03/22 08:00 - Problems (1) Osteomyelitis of left foot Current Visit: Yes Status: Acute (2) DM2 (diabetes mellitus, type 2) Current Visit: No Status: Acute (3) History of right below knee amputation Current Visit: No Status: Acute (4) GERD (gastroesophageal reflux disease) Current Visit: Yes Status: Acute (5) Hypertension Current Visit: Yes Status: Acute
--- NOTE | 2022-03-03 13:20 | CON ---
Date of Consultation: 02/28/2022 Diagnosis: Gangrene of the first toe with cellulitis of the foot. This is a case of a 71-year-old patient referred to us by a [facility], , after fo und to have in his office gangrene of the foot area. She is not new to gangrene. She had gangrene in the past of the opposite foot that resulted in below-knee amputation. Now, she has gangr tyler over the right toe area with some ischemia and cellulitis over the foot region. She was admitted to the hospital immediately, started antibiotics, and a surgical consult was obtained. The family i s at bedside. They are always there to support her. We know this lady from the past. She has a lot of support. They noticed the changes. Medications: Reviewed including aspirin, Tylenol, hydrocodone, iron, Glucerna, insulin. Past Surgical History: Right below-knee amputations, right cornea transplant. Medical History: Include hypertension, diabetes, peripheral vascular disease. Social History: Does not smoke. Does not drink alcohol. Family History: Noncontributory. Review of Systems: No nausea, no vomiting. No shortness of breath. No chest pain. Foot as above. Physical Examination: General: Patient is awake and alert. HEENT: Pupils are equal and reactive. Anicteric. Neck: Supple. Chest: Clear. Heart: S1, S2. Abdomen: Soft and depressible. No guarding or rebound. No peritoneal signs. Extremities: foot shows a toe that is completely black and gangrenous. There is some deli neation of the foot area. I am not sure if she is going to end up losing the foot too. Peripheral p ulses are not present but has not been present in the past anyway. No calf tenderness. Laboratory Data: Blood work shows a WBC count of 22, hemoglobin of 9.6, platelets of 503. INR is 1. 3. Potassium is 4.6, creatinine is 0.94. Sodium is 132, bicarb is 23. Foot MRI shows osteomyelitis involving distal phalanx of the great toe. Doppler study ultrasound: Moderate severe infrapoplitea l peripheral vascular disease. Assessment: This is a 71-year-old patient with first toe black, completely gangrenous. Traci winters I explained to her and the family member that it is not the worse situation. I believe just she is having ischemic changes in the foot. She is not new to that, that is how she lost the opposite si de. She has been trying to follow the instructions of the primary doctors, so she is doing her part. At this moment, she is not ready to sign for a below-knee amputation right now, but she would allow us to remove at least the first toe, which I believe is a culprit for infection and because it is al ready gangrenous, it is not allowing us to supply that area with antibiotics. Once we removed the fi rst toe, she will just, in the next few days or few weeks, see how the rest of the foot delineate and if she does not see any progress, then she will be prepared to sign for an even higher amputation. She understands the wound care and the chances of this healing is poor since peripheral vascular dise ase is a reality. The benefits, alternatives, and risks of first toe amputation fully explained, whi ch include, but not limited to infection, bleeding, damage to adjacent structures, anesthesia complic ation, nonhealing wound, CT, and even . JESSE/THELMA Voice ID: [id number] Report ID: [id number]
--- NOTE | 2022-03-03 13:20 | CON ---
History Of Present Illness: Patient is a 71-year-old very pleasant female coming in for left foot os teomyelitis of the big toe, status post surgical amputation. Patient has significant past medical hi story of diabetic neuropathy and diabetes mellitus. Blood sugars are running more than 200 fasting. Currently on oral diabetic medication. The patient denies any headache, nausea, vomiting, chest irina n, abdominal pain, constipation, currently being treated with IV cefepime and vancomycin. Past Medical History: As per HPI. Social History: Nonsmoker, nondrinker. Family History: Noncontributory. Medications: Vancomycin and cefepime. See MAR for other medications. Allergies: NO KNOWN DRUG ALLERGIES. Review of Systems: A 10-point review was performed. Physical Examination: General: This is a 71-year-old female, lying in bed, not in any acute cardiopulmonary distress. Vital Signs: Temperature is 98, pulse 90, respirations 16, blood pressure 152/63. HEENT: Unremarkable. Neck: Supple. Lungs: Clear to auscultation. Heart: S1, S2. Regular. Abdomen: Soft, nontender. Bowel sounds present. Extremities: Left big toe with amputation site noted with less than 10% necrotic area noted. Dorsal aspect has a small wound with eschar tissue developed and plantar area has a small wound also. We w ill recommend to apply Betadine to those 2 areas. Laboratory Data: WBC 17.3, down from 22; hemoglobin 8.1; platelets are 431. Chemistry shows BUN of 25, creatinine 0.7, glucose is 290. Albumin level is 2.8. Assessment And Plan: 1.Left foot osteomyelitis, status post amputation. 2.Peripheral vascular disease. 3.Moderate protein-calorie malnourishment. 4.Anemia of chronic disease. 5.Diabetic neuropathy. 6.Uncontrolled diabetes mellitus. We will recommend the patient for long-term acute care. I spoke to the sons and the patient herself, who agrees. We will discuss this with primary care, hospitalist team, and with surgical team. If jacob bradyy with them, we will transfer the patient to long-term acute care and continue management with hype rbaric and serial debridement of the wound site. Recommend to apply silver alginate to the wound sit e while patient is here in this hospital. Thank you for consult. JAUN/THELMA Voice ID: [id number] Report ID: [id number]
[2022-03-03] MEDS ORDERED: NA CHLORIDE 0.9% 100 ML ONE (14:49)
--- NOTE | 2022-03-03 17:39 | PN ---
Date of Progress Note: 03/03/2022 This is followup after trans met amputation of the first toe. The patient doing better. The area is still delineating. Intact surgical site. No calf tenderness. Plan: Continue dressing changes. Once again, she may need a below-knee amputation. She wants a debby leyva to delineate, so I removed the bone that was questionable also for osteomyelitis. She may need s ome antibiotics when she goes home and then [facility] and then depends ramon maradiaga to delineate, proceed with wound VAC or amputation. JESSE/THELMA Voice ID: [id number] Report ID: [id number]
--- NOTE | 2022-03-03 19:13 | P.PN ---
Subjective Date of Service: 03/03/22 Primary Care Provider: Kristian Chief Complaint: Osteomyelitis of left foot Patient lying in bed with no signs of cardiopulmonary distress, stated that she was feeling better than yesterday. No major events upon examination. Physical Examination - Vital Signs Temperature: 98.1 F Blood Pressure: 138/62 Pulse: 88 Respirations: 18 Pulse Ox (%): 100 - Physical Exam General: In no apparent distress HEENT: Other (Right eye blindness) Respiratory: Clear to auscultation bilaterally Cardiovascular: Normal S1 S2 Gastrointestinal: Normal bowel sounds Musculoskeletal: No swelling, Other (Right BKA with left great toe amputation on 02/28) Integumentary: Other (Right great toe infection s/p amputation on 02/28) Neurological: Normal speech, Normal affect - Studies Current Medications: Enoxaparin Sodium (Enoxaparin 40 Mg/0.4 Ml) 40 mg SQ DAILY [facility] Last Admin: 03/03/22 09:16 Dose: 40 mg Enteral Nutritional Formula (Glucerna Shake 237 Ml Can) 237 ml PO BID [facility] Last Admin: 03/03/22 09:17 Dose: 237 ml Cefepime HCl 2 gm/ Sodium (Chloride) 100 mls @ 200 mls/hr IV Q12H [facility] Last Admin: 03/03/22 14:55 Dose: 100 mls Vancomycin HCl 750 mg/ Sodium (Chloride) 150 mls @ 150 mls/hr IVPB Q18H [facility] Last Admin: 03/03/22 04:58 Dose: 150 mls Ferric Sodium Gluconate Complex 125 mg/ Sodium Chloride 110 mls @ 100 mls/hr IV DAILY [facility] Stop: 03/09/22 10:05 Last Admin: 03/03/22 09:15 Dose: 110 mls Insulin Human Regular (Insulin -Regular Human 50 Unit/0.5 Ml Ml) 0 unit SQ ACHS [facility]; Protocol Last Admin: 03/03/22 16:34 Dose: 7 unit Morphine Sulfate (Morphine 2 Mg/Ml Syr) 2 mg IV Q6H PRN PRN Reason: Pain scale 5-7 (Moderate) Last Admin: 03/02/22 21:08 Dose: 2 mg Ondansetron HCl (Ondansetron 4 Mg/2 Ml Vial) 4 mg IV Q6HP PRN PRN Reason: NAUSEA / VOMITING Last Admin: 02/27/22 22:17 Dose: 4 mg Pantoprazole Sodium (Pantoprazole 40mg Tablet) 40 mg PO DAILYAC [facility]; Protocol Last Admin: 03/02/22 10:03 Dose: 40 mg Sodium Chloride (Flush Normal Saline 10 Ml) 10 ml IV BID [facility] Last Admin: 03/03/22 09:00 Dose: Not Given Assessment And Plan - Current Problems (Diagnosis) (1) Osteomyelitis of left foot Current Visit: Yes Status: Acute Plan: 1. Currently on IV antibiotics: - Vancomycin: 03/01 to present - Cefepime: 02/27 to present 2. Leukocytosis: Trending down to 18.6 today 3. 02/27 Blood and Urine culture: Negative 4. 02/27 MRI: [id number]-[id number] osteomyelitis involving the distal phalanx of the great toe suspected - Left great toe amputation on 02/28 5. Recommendations: - Should have IV antibiotics for total of 6 weeks duration; Continue IV vancomycin and Cefepime during hospital stay - Hyperbaric oxygen therapy to promote wound healing and recovery; - Renal function monitoring and dosing management with routine lab tests; - Consider LTAC placement for patient care and management 6. Keep monitoring signs of infection with fever and WBC trend - Plan - DM 2: Currently on insulin -HTN - History of Right BKA - GERD - Right eye blindness - Anemia of chronic disease: Keep monitoring H&H - Moderate protein calorie malnutrition: Currently on Glucerna Shake BID to promote proper wound healing - PVD Case has been discussed with Dr. Park N
[2022-03-04] MEDS: CEFEPIME 2 GM in NA CHLORIDE 0.9% 100 ML IV SCH (03:42)
[2022-03-04 05:46] LABS: Hematocrit 23.4 % (36.0-45.0); MCV 77.6 fL (80-100); MPV 8.1 fL (7.6-11.3); RBC Red Blood Cell Count 3.02 M/uL (3.86-4.86)
[2022-03-04 05:59] LABS: Potassium 4.2 mmol/L (3.5-5.1)
[2022-03-04] MEDS: PANTOPRAZOLE 40MG TABLET PO SCH (06:09)
[2022-03-04] MEDS: INSULIN -REGULAR HUMAN 50 UNIT/0.5 ML ML SQ SCH ×2 (07:30→11:30)
[2022-03-04] MEDS: ENOXAPARIN 40 MG/0.4 ML SQ SCH (08:19)
[2022-03-04] MEDS: SOD FERRIC GLUC COMPLX/SUCROSE 125 MG in NA CHLORIDE 0.9% 100 ML IV SCH (08:19)
[2022-03-04] MEDS: GLUCERNA SHAKE 237 ML CAN PO SCH (08:20)
--- NOTE | 2022-03-04 10:53 | P.PN ---
Subjective Date of Service: 03/04/22 Primary Care Provider: Kristian Chief Complaint: Osteomyelitis of left foot Patient lying in bed with no signs of cardiopulmonary distress, stated that she was feeling better than yesterday. No major events upon examination. 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 Dressing dry and intact with no signs of infection of the site) Integumentary: Other (Right great toe infeciton s/p amputation on 02/28) Neurological: Normal speech - Studies Current Medications: Enoxaparin Sodium (Enoxaparin 40 Mg/0.4 Ml) 40 mg SQ DAILY [facility] Last Admin: 03/04/22 08:19 Dose: 40 mg Enteral Nutritional Formula (Glucerna Shake 237 Ml Can) 237 ml PO BID [facility] Last Admin: 03/04/22 08:20 Dose: 237 ml Cefepime HCl 2 gm/ Sodium (Chloride) 100 mls @ 200 mls/hr IV Q12H [facility] Last Admin: 03/04/22 03:42 Dose: 100 mls Vancomycin HCl 750 mg/ Sodium (Chloride) 150 mls @ 150 mls/hr IVPB Q18H [facility] Last Admin: 03/03/22 22:33 Dose: 150 mls Ferric Sodium Gluconate Complex 125 mg/ Sodium Chloride 110 mls @ 100 mls/hr IV DAILY [facility] Stop: 03/09/22 10:05 Last Admin: 03/04/22 08:19 Dose: 110 mls Insulin Human Regular (Insulin -Regular Human 50 Unit/0.5 Ml Ml) 0 unit SQ ACHS [facility]; Protocol Last Admin: 03/04/22 07:30 Dose: Not Given Morphine Sulfate (Morphine 2 Mg/Ml Syr) 2 mg IV Q6H PRN PRN Reason: Pain scale 5-7 (Moderate) Last Admin: 03/02/22 21:08 Dose: 2 mg Ondansetron HCl (Ondansetron 4 Mg/2 Ml Vial) 4 mg IV Q6HP PRN PRN Reason: NAUSEA / VOMITING Last Admin: 02/27/22 22:17 Dose: 4 mg Pantoprazole Sodium (Pantoprazole 40mg Tablet) 40 mg PO DAILYAC [facility]; Protocol Last Admin: 03/04/22 06:09 Dose: 40 mg Sodium Chloride (Flush Normal Saline 10 Ml) 10 ml IV BID [facility] Last Admin: 03/04/22 08:20 Dose: 10 ml Microbiology 02/27/22 13:26 Blood - Blood Aerobic Blood Culture - Preliminary No growth in 24 hours. 02/27/22 13:26 Blood - Blood Anaerobic Blood Culture - Preliminary No growth in 24 hours. 02/27/22 12:19 Blood - Blood Aerobic Blood Culture - Preliminary No growth in 24 hours. 02/27/22 12:19 Blood - Blood Anaerobic Blood Culture - Preliminary No growth in 24 hours. Assessment And Plan - Current Problems (Diagnosis) (1) Osteomyelitis of left foot Status: Acute Plan: Antibiotics: - Vancomycin: 03/01 to present - Cefepime: 02/27 to present Leukocytosis: Trending down to 17 today, Improving Cultures: 02/27 Blood and Urine culture: Negative Imagin/5 MRI: [id number] osteomyelitis involving the distal phalanx of the great toe suspected - Left great toe amputation on 02/28 Recommendations: - Should have IV antibiotics for total of 6 weeks duration; Continue IV vancomycin and Cefepime during hospital stay - Hyperbaric oxygen therapy to promote wound healing and recovery; - Renal function monitoring and dosing management with routine lab tests; - Consider LTAC placement for patient care and management Keep monitoring signs of infection with fever and WBC trend - Plan - DM 2: Currently on insulin - HTN - History of Right BKA - GERD - Right eye blindness - Anemia of chronic disease: Keep monitoring H&H - Moderate protein calorie malnutrition: Currently on Glucerna Shake BID to promote proper wound healing - PVD Case has been discussed with Dr. Park, N
[2022-03-04 17:46] VITALS: BP 135/62; TEMP 97.7
--- NOTE | 2022-03-04 19:16 | P.DS ---
Admission Date: 02/27/22 Discharge Date: 03/04/22 Primary Care Provider: Kristian Disposition: [facility] Reason for Admission: Osteomyelitis of left foot Brief History of Present Illness: This is a 71 year old female with PMH of DM2, HTN, GERD, right eye blindness and right BKA, who presented to the emergency room with her sons with complaint of right big toe infection. Patient states that she woke up in the morning and noticed that her right big toenail had fallen off. She states that she has neuropathy and did not feel any pain. She reported no symptoms except for noticing her toe being black/bluish. MRI of the left foot demonstrated [id number] osteomyelitis involving the distal phalanx of the great toe suspected. Patient was admitted to the hospitalist service with a surgical consult for further management. Hospital Course: Diagnosis Osteomyelitis of left great toe; now s/p amputation 02/28 GERD DM2 with diabetic neuropathy HLD Anemia, microcytic; iron deficiency Patient admitted to the medical floor and the following medical problems addressed: Osteomyelitis of left great toe MRI of left foot - [id number] osteomyelitis involving the distal phalanx of the great toe suspected BLE U/S doppler Moderately severe infrapopliteal peripheral vascular disease on the left identified Patient treated with antibiotic Seen by surgeon-Dr. Bonilla s/p amputation 02/28 f/u cultures ID consulted LTACH recommended. ID also recommended hyperbaric O2 and prolonged Abx - 6 wks GERD -Continue Protonix. DM2 with diabetic neuropathy-patient treated with sliding scale insulin coverage. Anemia, microcytic; iron deficiency severe iron deficiency Patient treated with IV iron. pt stopped taking iron supplements long ago due to constipation. She has been accepted to LTAC. Vitals are stable for transfer. Vital Signs/Physical Exam: Temp Pulse Resp BP Pulse Ox 97.7 F 89 18 135/62 100 03/04/22 17:47 03/04/22 17:47 03/04/22 17:47 03/04/22 17:47 03/04/22 17:47 General: Alert, In no apparent distress, Oriented x3 HEENT: Mucous membr. moist/pink Neck: JVD not distended Respiratory: Clear to auscultation bilaterally, Normal air movement Cardiovascular: Regular rate/rhythm, Normal S1 S2 Gastrointestinal: Soft and benign, Non-distended Neurological: Normal strength at 5/5 x4 extr Laboratory Data at Discharge: WBC 17.00 K/uL (4.3-10.9) H 03/04/22 05:32 Hgb 7.8 g/dL (12.0-15.0) L 03/04/22 05:32 Hct 23.4 % (36.0-45.0) L 03/04/22 05:32 Plt Count 458 K/uL (152-406) H 03/04/22 05:32 PT 14.3 SECONDS (9.5-12.5) H 02/27/22 12:19 INR 1.30 02/27/22 12:19 APTT 23.8 SECONDS (24.3-36.9) L 02/27/22 12:19 Sodium 136 mmol/L (136-145) 03/04/22 05:32 Potassium 4.2 mmol/L (3.5-5.1) 03/04/22 05:32 BUN 22 mg/dL (7-18) H 03/04/22 05:32 Creatinine 0.61 mg/dL (0.55-1.02) 03/04/22 05:32 Glucose 142 mg/dL (74-106) H 03/04/22 05:32 Phosphorus 3.6 mg/dL (2.5-4.9) 02/28/22 03:14 Magnesium 1.7 mg/dL (1.6-2.4) 03/03/22 02:53 Total Bilirubin 0.3 mg/dL (0.2-1.0) 02/27/22 12:19 AST 15 U/L (15-37) 02/27/22 12:19 ALT 16 U/L (13-56) 02/27/22 12:19 Alkaline Phosphatase 148 U/L (45-117) H 02/27/22 12:19 Triglycerides 97 mg/dL (<150) 02/28/22 03:14 Cholesterol 120 mg/dL (<200) 02/28/22 03:14 HDL Cholesterol 37 mg/dL (40-60) L 02/28/22 03:14 Cholesterol/HDL Ratio 3.24 02/28/22 03:14 Home Medications: Aspirin 81 mg PO DAILY 07/28/21 Atorvastatin Calcium [Lipitor*] 20 mg PO DAILY 07/28/21 Bimatoprost [Lumigan Opthalmic Drops*] 1 drop LEFT EYE BEDTIME 07/28/21 Acetaminophen [Tylenol*] 650 mg PO Q6H PRN tab 08/07/21 Glucerna Shake [Glucerna*] 237 ml PO BIDP PRN 02/27/22 Levemir Flextouch 12 units SQ BIDWM 02/27/22 Lisinopril [Zestril] 5 mg PO DAILY 02/27/22 Rivaroxaban [Xarelto] 1 tab PO DAILY 02/27/22 Followup: Delano Townsend MD [Primary Care Provider] - Time spent managing pt's care (in minutes): 34
== END 2022-03-04 13:40 | DRG 854 ==
LOC: ER 11:38 → ERHOLD 13:41 → 4TH 19:55
PROVIDERS: ADMIT Hospitalist; ATTEND Internal Medicine
PROC: 0Y6Q0Z0 Detachment at Left 1st Toe, Complete, Open Approach (ICD-10-PCS; principal; 2022-02-28 14:45)
DX: A41.9 Sepsis, unspecified organism (principal); E11.52 Type 2 diabetes mellitus with diabetic peripheral angiopathy with gangrene; M86.8X7 Other osteomyelitis, ankle and foot; L03.116 Cellulitis of left lower limb; E44.0 Moderate protein-calorie malnutrition; Z68.1 Body mass index [BMI] 19.9 or less, adult; E11.69 Type 2 diabetes mellitus with other specified complication; E11.65 Type 2 diabetes mellitus with hyperglycemia; E11.40 Type 2 diabetes mellitus with diabetic neuropathy, unspecified; E11.51 Type 2 diabetes mellitus with diabetic peripheral angiopathy without gangrene; D50.9 Iron deficiency anemia, unspecified; K21.9 Gastro-esophageal reflux disease without esophagitis; E78.5 Hyperlipidemia, unspecified; H54.61 Unqualified visual loss, right eye, normal vision left eye; Z79.4 Long term (current) use of insulin; Z94.7 Corneal transplant status; Z79.82 Long term (current) use of aspirin; Z79.01 Long term (current) use of anticoagulants; Z79.899 Other long term (current) drug therapy; Z89.511 Acquired absence of right leg below knee; Z89.422 Acquired absence of other left toe(s); Z20.822 Contact with and (suspected) exposure to COVID-19
CPT/HCPCS: 36415; 80048; 80053; 80061; 80202; 81001; 82947; 83540; 83605; 83735; 84100; 84466; 85025; 85027; 85044; 85610; 85730; 87040; 87086; 87088; 87811; 88305; 88311; 93005; 93925; 96365; 96366; 99285; J0692; J1650; J1815; J2001; J2250; J2270; J2405; J2704; J2916; J3010; J3370; J7030; J7050